=== PATIENT | male | born 1960 | race Caucasian/White ===

== ENCOUNTER 2022-03-29 11:38 | Inpatient (IN) | payer MEDICARE ==
[2022-03-29 12:31] LABS: #Basophils 0.1 10x3/uL (0.0-0.2); #Eosinphils 0.6 10x3/uL (0.0-0.5); #Monocytes 1.2 10x3/uL (0.0-1.1); #Neutrophils 7.6 10x3/uL (1.5-8.4); %Basophils 0.5 % (0.0-2.0); %Lymphocytes 14.4 % (18.0-47.0); %Monocytes 10.9 % (0.0-10.0); %Neutrophils 68.7 % (40.0-75.0); Hemoglobin 9.9 g/dL (13.5-17.5); Mean Corpuscular HGB CONC 31.6 g/dL (32.0-36.0); Mean Corpuscular Hemoglobin 29.9 pg (27.0-33.0); Mean Corpuscular Volume 94.6 fl (81.2-95.1); Mean Platelet Volume 10.2 fl (7.4-10.4); Platelet Count 137 10x3/uL (150-450); RBC Distribution Width 19.6 % (11.5-14.5); Red Blood Cell (RBC) Count 3.31 10x6/uL (4.32-5.72)
[2022-03-29 12:47] LABS: SARS-CoV-2 NAA Rapid Test Not Detected (NotDetected)
[2022-03-29 12:53] LABS: ALT (SGPT) 14 U/L (8-55); AST (SGOT) 18 U/L (5-34); Albumin 3.8 g/dL (3.5-5.0); Alkaline Phosphatase 71 U/L (40-110); Anion Gap 21 mmol/L (10-20); BUN (Urea Nitrogen) 48 mg/dL (8.4-25.7); Bilirubin, Total 0.9 mg/dL (0.2-1.2); Calc. Creatinine Clearance 0 mL/min (70-130); Calcium 9.7 mg/dL (7.8-10.44); Carbon Dioxide 26 mmol/L (22-29); Chloride 97 mmol/L (98-107); Estimated GFR 7; Globulin 3.5 g/dL (2.4-3.5); Glucose 106 mg/dL (70-105); Magnesium 2.5 mg/dL (1.6-2.6); Potassium 4.2 mmol/L (3.5-5.1); Protein, Total 7.3 g/dL (6.0-8.3); Sodium 140 mmol/L (136-145)
[2022-03-29] MEDS ORDERED: Furosemide 100 MG/10 ML VIAL ONE (14:31)
[2022-03-29] MEDS ORDERED: Ipratropium/Albuterol 3 ML NEB ONE (14:45)
[2022-03-29 15:01] LABS: INR-International Normal Ratio 1.1; Prothrombin Time 11.9 sec (9.5-12.1)
[2022-03-29] MEDS ORDERED: Heparin 25,000 units/D5W 500 ML IVPB SCH (15:45)
[2022-03-29] MEDS ORDERED: Acetaminophen 650 MG Suppository PR PRN (15:45)
[2022-03-29] MEDS ORDERED: Ondansetron PF 4 MG/2 ML Vial IVP PRN (15:45)
[2022-03-29] MEDS ORDERED: Ondansetron ODT 4 MG TAB PO PRN (15:45)
[2022-03-29 16:17] LABS: Hemoglobin 9.8 g/dL (13.5-17.5); Platelet Count 142 10x3/uL (150-450)
[2022-03-29 16:24] LABS: Troponin I 0.086 ng/mL (< 0.028)
[2022-03-29] MEDS ORDERED: Metoprolol Tartrate 25 MG TAB PO SCH (17:15)
[2022-03-29] MEDS ORDERED: Warfarin Sodium 5 MG TAB PO SCH (18:00)
[2022-03-29 18:51] LABS: Troponin I 0.098 ng/mL (< 0.028)
[2022-03-29] MEDS: Ipratropium/Albuterol 3 ML NEB NEB PRN (19:42)
[2022-03-29] MEDS: Heparin 10,000 UNITS/ 10 ML VIAL SLOW IVP SCH (21:28)
[2022-03-29] MEDS: Heparin 25,000 units/D5W 500 ML IVPB SCH (21:30)
[2022-03-30] MEDS: Ipratropium/Albuterol 3 ML NEB NEB PRN ×3 (01:21→15:40)
[2022-03-30] MEDS: Metoprolol Tartrate 25 MG TAB PO SCH ×4 (01:49→20:21)
[2022-03-30 04:35] LABS: #Eosinphils 0.7 10x3/uL (0.0-0.5); #Monocytes 1.2 10x3/uL (0.0-1.1); #Neutrophils 7.5 10x3/uL (1.5-8.4); %Basophils 0.4 % (0.0-2.0); %Eosinophils 6.3 % (0.0-6.0); %Lymphocytes 11.7 % (18.0-47.0); %Monocytes 11.2 % (0.0-10.0); %Neutrophils 69.9 % (40.0-75.0); Hemoglobin 9.9 g/dL (13.5-17.5); Mean Corpuscular Hemoglobin 29.2 pg (27.0-33.0); Mean Corpuscular Volume 97.3 fl (81.2-95.1); Mean Platelet Volume 10.8 fl (7.4-10.4); Platelet Count 129 10x3/uL (150-450); RBC Distribution Width 19.3 % (11.5-14.5); Red Blood Cell (RBC) Count 3.39 10x6/uL (4.32-5.72); White Blood Cell (WBC) Count 10.7 10x3/uL (3.5-10.5)
[2022-03-30 04:53] LABS: INR-International Normal Ratio 1.1; PTT 27.9 sec (22.0-33.0); Prothrombin Time 12.1 sec (9.5-12.1)
[2022-03-30 04:55] LABS: Anion Gap 23 mmol/L (10-20); BUN (Urea Nitrogen) 57 mg/dL (8.4-25.7); Calc. Creatinine Clearance 19 mL/min (70-130); Calcium 9.5 mg/dL (7.8-10.44); Carbon Dioxide 25 mmol/L (22-29); Chloride 96 mmol/L (98-107); Estimated GFR 6; Glucose 102 mg/dL (70-105); Sodium 139 mmol/L (136-145)
[2022-03-30] MEDS: Heparin 10,000 UNITS/ 10 ML VIAL SLOW IVP SCH ×2 (05:29→20:47)
[2022-03-30] MEDS ORDERED: Digoxin 0.5 MG/2 ML AMP SLOW IVP SCH ×2 (07:00→17:00)
[2022-03-30] MEDS: Sevelamer Carbonate 800 MG TAB PO SCH ×3 (08:43→16:40)
[2022-03-30] MEDS: EPOETIN ALFA-EPBX (ESRD) 4,000 UNIT/ML VIAL SC SCH (08:44)
[2022-03-30] MEDS ORDERED: Nitroglycerin 0.4 MG TAB (25 Tab Bottle) SL PRN (14:02)
[2022-03-30 15:16] LABS: CKMB 6.6 ng/mL (0-6.6)
[2022-03-30] MEDS ORDERED: Piperacillin/Tazobactam 3.375 GM in Sodium Chloride 0.9% 100 ML IVPB SCH (16:00)
[2022-03-30] MEDS: Warfarin Sodium 10 MG TAB PO SCH (16:40)
[2022-03-30] MEDS ORDERED: Heparin 10,000 UNITS/ 10 ML VIAL CATH PRN (17:45)
[2022-03-30] MEDS: Heparin 25,000 units/D5W 500 ML IVPB SCH (18:00)
[2022-03-30] MEDS: Piperacillin/Tazobactam 3.375 GM in Sodium Chloride 0.9% 100 ML IVPB SCH (20:20)
[2022-03-31 03:51] LABS: #Basophils 0.1 10x3/uL (0.0-0.2); #Eosinphils 0.5 10x3/uL (0.0-0.5); #Monocytes 1.8 10x3/uL (0.0-1.1); %Basophils 0.4 % (0.0-2.0); %Eosinophils 3.3 % (0.0-6.0); %Lymphocytes 9.3 % (18.0-47.0); %Monocytes 11.8 % (0.0-10.0); %Neutrophils 74.6 % (40.0-75.0); Hemoglobin 9.7 g/dL (13.5-17.5); Mean Corpuscular HGB CONC 30.9 g/dL (32.0-36.0); Mean Corpuscular Hemoglobin 29.9 pg (27.0-33.0); Mean Corpuscular Volume 96.9 fl (81.2-95.1); Mean Platelet Volume 10.4 fl (7.4-10.4); Platelet Count 122 10x3/uL (150-450); RBC Distribution Width 18.9 % (11.5-14.5); Red Blood Cell (RBC) Count 3.24 10x6/uL (4.32-5.72); White Blood Cell (WBC) Count 14.8 10x3/uL (3.5-10.5)
[2022-03-31 04:06] LABS: INR-International Normal Ratio 1.2; Prothrombin Time 13.2 sec (9.5-12.1)
[2022-03-31 04:09] LABS: Anion Gap 20 mmol/L (10-20); BUN (Urea Nitrogen) 51 mg/dL (8.4-25.7); Calc. Creatinine Clearance 21 mL/min (70-130); Calcium 8.8 mg/dL (7.8-10.44); Carbon Dioxide 27 mmol/L (22-29); Chloride 95 mmol/L (98-107); Estimated GFR 7; Glucose 104 mg/dL (70-105); Sodium 137 mmol/L (136-145)
[2022-03-31] MEDS: Ipratropium Bromide 2.5 ml Neb NEB PRN ×2 (04:57→19:24)
[2022-03-31] MEDS: Sevelamer Carbonate 800 MG TAB PO SCH ×3 (08:43→18:21)
[2022-03-31] MEDS: Metoprolol Tartrate 25 MG TAB PO SCH ×3 (08:43→20:57)
[2022-03-31] MEDS: Piperacillin/Tazobactam 3.375 GM in Sodium Chloride 0.9% 100 ML IVPB SCH ×2 (08:43→20:56)
[2022-03-31] MEDS: Heparin 25,000 units/D5W 500 ML IVPB SCH (08:45)
[2022-03-31 11:19] LABS: PTT Greater than 139.0 sec (22.0-33.0)
[2022-03-31 16:54] LABS: Hemoglobin 10.5 g/dL (13.5-17.5); Platelet Count 123 10x3/uL (150-450)
[2022-03-31] MEDS ORDERED: Digoxin 0.5 MG/2 ML AMP SLOW IVP SCH (17:45)
[2022-03-31] MEDS: Heparin 10,000 UNITS/ 10 ML VIAL SLOW IVP SCH (18:21)
[2022-03-31] MEDS: Warfarin Sodium 10 MG TAB PO SCH (18:23)
[2022-04-01 02:33] LABS: Legionella Urinary Ag Negative (Negative); Strep pneumo Urine Ag NEGATIVE (NEGATIVE)
[2022-04-01 04:52] LABS: #Basophils 0.1 10x3/uL (0.0-0.2); #Eosinphils 0.6 10x3/uL (0.0-0.5); #Monocytes 1.8 10x3/uL (0.0-1.1); #Neutrophils 9.6 10x3/uL (1.5-8.4); %Basophils 0.5 % (0.0-2.0); %Eosinophils 4.3 % (0.0-6.0); %Lymphocytes 7.6 % (18.0-47.0); %Monocytes 13.9 % (0.0-10.0); Hemoglobin 9.6 g/dL (13.5-17.5); Mean Corpuscular HGB CONC 30.4 g/dL (32.0-36.0); Mean Corpuscular Hemoglobin 29.9 pg (27.0-33.0); Mean Corpuscular Volume 98.4 fl (81.2-95.1); Platelet Count 114 10x3/uL (150-450); RBC Distribution Width 18.7 % (11.5-14.5); Red Blood Cell (RBC) Count 3.21 10x6/uL (4.32-5.72); White Blood Cell (WBC) Count 13.2 10x3/uL (3.5-10.5)
[2022-04-01 04:58] LABS: INR-International Normal Ratio 1.3; PTT 34.4 sec (22.0-33.0); Prothrombin Time 14.4 sec (9.5-12.1)
[2022-04-01 05:05] LABS: Anion Gap 16 mmol/L (10-20); BUN (Urea Nitrogen) 35 mg/dL (8.4-25.7); Calc. Creatinine Clearance 30 mL/min (70-130); Calcium 9.4 mg/dL (7.8-10.44); Carbon Dioxide 30 mmol/L (22-29); Chloride 96 mmol/L (98-107); Estimated GFR 10; Glucose 118 mg/dL (70-105); Potassium 4.7 mmol/L (3.5-5.1); Sodium 137 mmol/L (136-145)
[2022-04-01] MEDS: Heparin 10,000 UNITS/ 10 ML VIAL SLOW IVP SCH (05:48)
[2022-04-01] MEDS: Ipratropium Bromide 2.5 ml Neb NEB PRN ×3 (06:35→22:01)
[2022-04-01] MEDS: Heparin 25,000 units/D5W 500 ML IVPB SCH ×2 (07:24→19:00)
[2022-04-01] MEDS ORDERED: Digoxin 0.125 MG TAB PO SCH (09:00)
[2022-04-01 11:56] LABS: HBSAg Index 0.25 S/CO (0-0.99); Hep B Surf Ag Non-Reactive S/CO (NonReactive)
[2022-04-01] MEDS ORDERED: Digoxin 0.5 MG/2 ML AMP SLOW IVP SCH (16:15)
[2022-04-01] MEDS: Metoprolol Tartrate 25 MG TAB PO SCH (17:03)
[2022-04-01] MEDS: Piperacillin/Tazobactam 3.375 GM in Sodium Chloride 0.9% 100 ML IVPB SCH ×3 (17:13→21:17)
[2022-04-01] MEDS: Warfarin Sodium 10 MG TAB PO SCH (17:14)
[2022-04-01] MEDS: Sevelamer Carbonate 800 MG TAB PO SCH ×2 (17:14)
[2022-04-01 17:38] LABS: HBSAB Concentration 33.03 mIU/mL; Hep B Surf AB Reactive (NonReactive)
[2022-04-01] MEDS: Metoprolol Tartrate 50 MG TAB PO SCH (21:13)
[2022-04-02] MEDS: Ipratropium Bromide 2.5 ml Neb NEB PRN ×2 (04:09→11:15)
[2022-04-02] MEDS ORDERED: methylPREDNISolone Sod Succ/PF 125 MG/2 ML VIAL IVP SCH (05:00)
[2022-04-02] MEDS ORDERED: Magnesium 2 GM/50 ML(in water) 2 GM in Premix Bag 1 BAG IVPB SCH (05:00)
[2022-04-02] MEDS: Piperacillin/Tazobactam 3.375 GM in Sodium Chloride 0.9% 100 ML IVPB SCH ×2 (05:05→16:39)
[2022-04-02 05:25] LABS: #Basophils 0.1 10x3/uL (0.0-0.2); #Eosinphils 0.7 10x3/uL (0.0-0.5); #Monocytes 1.8 10x3/uL (0.0-1.1); #Neutrophils 10.6 10x3/uL (1.5-8.4); %Basophils 0.4 % (0.0-2.0); %Eosinophils 4.7 % (0.0-6.0); %Lymphocytes 6.7 % (18.0-47.0); %Neutrophils 74.5 % (40.0-75.0); Hemoglobin 9.7 g/dL (13.5-17.5); Mean Corpuscular Hemoglobin 29.5 pg (27.0-33.0); Mean Corpuscular Volume 98.2 fl (81.2-95.1); Mean Platelet Volume 9.3 fl (7.4-10.4); Platelet Count 114 10x3/uL (150-450); RBC Distribution Width 18.1 % (11.5-14.5); Red Blood Cell (RBC) Count 3.29 10x6/uL (4.32-5.72); White Blood Cell (WBC) Count 14.2 10x3/uL (3.5-10.5)
[2022-04-02 05:35] LABS: Anion Gap 18 mmol/L (10-20); BUN (Urea Nitrogen) 36 mg/dL (8.4-25.7); Calc. Creatinine Clearance 29 mL/min (70-130); Calcium 9.5 mg/dL (7.8-10.44); Carbon Dioxide 25 mmol/L (22-29); Chloride 96 mmol/L (98-107); Estimated GFR 10; Glucose 116 mg/dL (70-105); Potassium 4.8 mmol/L (3.5-5.1); Sodium 134 mmol/L (136-145)
[2022-04-02 05:41] LABS: INR-International Normal Ratio 1.4; Prothrombin Time 15.3 sec (9.5-12.1)
[2022-04-02] MEDS ORDERED: Lorazepam 2 MG/ML VIAL SLOW IVP SCH (06:00)
[2022-04-02] MEDS: Metoprolol Tartrate 50 MG TAB PO SCH ×2 (06:26→21:07)
[2022-04-02] MEDS: Digoxin 0.25 MG TAB PO SCH (06:36)
[2022-04-02] MEDS: Ipratropium/Albuterol 3 ML NEB NEB PRN ×2 (07:25→19:42)
[2022-04-02] MEDS: Sevelamer Carbonate 800 MG TAB PO SCH ×3 (09:13→16:32)
[2022-04-02] MEDS: methylPREDNISolone Sod Succ 40 MG VIAL IVP SCH (09:13)
[2022-04-02] MEDS ORDERED: Haloperidol Lactate 5 MG/ML VIAL SLOW IVP SCH (09:15)
[2022-04-02] MEDS: Dexmedetomidine In 0.9 % NaCl 400 MCG in Premix Bag 1 BAG IVPB SCH (12:23)
[2022-04-02] MEDS ORDERED: Albumin 25% 25 GM/100 ML BOT IVPB SCH (13:30)
[2022-04-02 16:11] LABS: Actual Bicarbonate (HCO3a) 31.5 mEq/L (22-28); Calcium, Ionized (arterial) 1.06 mmol/L (1.12-1.30); Carboxyhemoglobin (COHb) 1.2 gm% (0.0-3.0); Hemoglobin (Hb) 10.9 g/dL (14.0-18.0); O2 Tension (PaO2), arterial 80.5 mmHg (> 80.0); Potassium - ABG Lab 4.5 mmol/L (3.70-5.30); Puncture Site RRA; pH, Arterial 7.21 (7.35-7.45)
[2022-04-02] MEDS: Warfarin Sodium 10 MG TAB PO SCH (16:40)
[2022-04-02] MEDS ORDERED: Warfarin Sodium 5 MG TAB PO SCH (17:00)
[2022-04-02 17:18] LABS: Actual Bicarbonate (HCO3a) 27.1 mEq/L (22-28); Base Excess (BEa) -2.7 mEq/L (-2.0 to +3.0); CO2 Tension 76.5 mmHg (35.0-45.0); O2 Tension (PaO2), arterial 127.6 mmHg (> 80.0); pH, Arterial 7.17 (7.35-7.45)
[2022-04-02 17:19] LABS: Carboxyhemoglobin (COHb) 1.3 gm% (0.0-3.0); Hemoglobin (Hb) 11.2 g/dL (14.0-18.0)
[2022-04-02 17:20] LABS: Potassium - ABG Lab 5.2 mmol/L (3.70-5.30)
[2022-04-02 17:24] LABS: ALV-art Gradient 133.275 mmHg (0-20)
[2022-04-02] MEDS ORDERED: Phenylephrine 40 MG in Sodium Chloride 0.9% 250 ML 250 ML IVPB SCH (20:15)
[2022-04-02 20:40] LABS: ALV-art Gradient 130.575 mmHg (0-20); Actual Bicarbonate (HCO3a) 31.6 mEq/L (22-28); Base Excess (BEa) 2.6 mEq/L (-2.0 to +3.0); CO2 Tension 76.9 mmHg (35.0-45.0); Calcium, Ionized (arterial) 1.06 mmol/L (1.12-1.30); Hemoglobin (Hb) 10.3 g/dL (14.0-18.0); O2 Tension (PaO2), arterial 129.8 mmHg (> 80.0); Potassium - ABG Lab 4.8 mmol/L (3.70-5.30); Puncture Site LRA; pH, Arterial 7.23 (7.35-7.45)
[2022-04-02] MEDS: Phenylephrine 40 MG/NS 250 ML 40 MG in Premix Bag 1 BAG IVPB SCH (21:07)
[2022-04-02] MEDS ORDERED: Ventilator Sedation Protocol 1 EACH FS PRN (21:26)
[2022-04-02] MEDS ORDERED: Propofol 1,000 MG/100 ML VIAL IV SCH (21:30)
[2022-04-02] MEDS ORDERED: Propofol 1,000 MG/100 ML VIAL IV ONE (21:31)
[2022-04-02] MEDS ORDERED: FENTANYL 2,000MCG/100-0.9%NACL 100 ML IVPB SCH (21:45)
[2022-04-02] MEDS ORDERED: Lorazepam 2 MG/ML VIAL SLOW IVP PRN (21:45)
[2022-04-02] MEDS ORDERED: DISCONTINUE PREVIOUS NARCOTIC PAIN MEDICATIONS AND BENZODIAZEPINES FS SCH (21:45)
[2022-04-02] MEDS ORDERED: Propofol BOLUS 1,000 MG/100 ML VIAL IV PRN (21:45)
[2022-04-02] MEDS ORDERED: Morphine 2 MG/ML VIAL SLOW IVP PRN (21:45)
[2022-04-02] MEDS ORDERED: Fentanyl BOLUS 250 ML IVPB PRN (21:45)
[2022-04-02] MEDS ORDERED: VANCOMYCIN 2 GRAM/400 ML BAG 2 GM in Premix Bag 1 BAG IVPB SCH (22:00)
[2022-04-02] MEDS ORDERED: Vancomycin Hemodialysis Sliding Scale FS SCH (22:00)
[2022-04-02 23:17] LABS: Anion Gap 21 mmol/L (10-20); BUN (Urea Nitrogen) 35 mg/dL (8.4-25.7); Calc. Creatinine Clearance 32 mL/min (70-130); Calcium 8.9 mg/dL (7.8-10.44); Carbon Dioxide 25 mmol/L (22-29); Chloride 96 mmol/L (98-107); Estimated GFR 11; Glucose 132 mg/dL (70-105); Magnesium 2.6 mg/dL (1.6-2.6); Potassium 5.1 mmol/L (3.5-5.1); Sodium 137 mmol/L (136-145)
[2022-04-02 23:40] LABS: Actual Bicarbonate (HCO3a) 29.7 mEq/L (22-28); Base Excess (BEa) 3.6 mEq/L (-2.0 to +3.0); CO2 Tension 53.2 mmHg (35.0-45.0); Calcium, Ionized (arterial) 1.04 mmol/L (1.12-1.30); Hemoglobin (Hb) 10.1 g/dL (14.0-18.0); O2 Tension (PaO2), arterial 55.9 mmHg (> 80.0); Potassium - ABG Lab 4.8 mmol/L (3.70-5.30); Puncture Site LRA; pH, Arterial 7.37 (7.35-7.45)
[2022-04-02] MEDS: Propofol 1,000 MG/100 ML VIAL IV PRN (23:45)
[2022-04-03] MEDS: Ipratropium/Albuterol 3 ML NEB NEB PRN ×2 (00:13→20:21)
[2022-04-03] MEDS: methylPREDNISolone Sod Succ 40 MG VIAL IVP SCH (00:46)
[2022-04-03] MEDS: Propofol 1,000 MG/100 ML VIAL IV PRN ×8 (02:27→22:19)
[2022-04-03] MEDS: Heparin 25,000 units/D5W 500 ML IVPB SCH ×2 (02:29→19:59)
[2022-04-03] MEDS: Ipratropium Bromide 2.5 ml Neb NEB PRN ×4 (04:05→16:03)
[2022-04-03 04:31] LABS: #Monocytes 1.6 10x3/uL (0.0-1.1); #Neutrophils 9.5 10x3/uL (1.5-8.4); %Basophils 0.1 % (0.0-2.0); %Lymphocytes 5.5 % (18.0-47.0); %Monocytes 13.3 % (0.0-10.0); %Neutrophils 80.6 % (40.0-75.0); Hemoglobin 8.8 g/dL (13.5-17.5); Mean Corpuscular HGB CONC 31.4 g/dL (32.0-36.0); Mean Corpuscular Hemoglobin 29.7 pg (27.0-33.0); Mean Corpuscular Volume 94.6 fl (81.2-95.1); Platelet Count 118 10x3/uL (150-450); RBC Distribution Width 17.8 % (11.5-14.5); Red Blood Cell (RBC) Count 2.96 10x6/uL (4.32-5.72); White Blood Cell (WBC) Count 11.7 10x3/uL (3.5-10.5)
[2022-04-03 04:33] LABS: Anion Gap 20 mmol/L (10-20); BUN (Urea Nitrogen) 40 mg/dL (8.4-25.7); Calc. Creatinine Clearance 32 mL/min (70-130); Calcium 8.9 mg/dL (7.8-10.44); Carbon Dioxide 25 mmol/L (22-29); Chloride 95 mmol/L (98-107); Estimated GFR 11; Glucose 96 mg/dL (70-105); Potassium 4.6 mmol/L (3.5-5.1); Sodium 135 mmol/L (136-145)
[2022-04-03 04:42] LABS: INR-International Normal Ratio 1.8; PTT 46.6 sec (22.0-33.0); Prothrombin Time 19.3 sec (9.5-12.1)
[2022-04-03] MEDS: Piperacillin/Tazobactam 3.375 GM in Sodium Chloride 0.9% 100 ML IVPB SCH ×2 (04:46→17:36)
[2022-04-03 05:29] LABS: Actual Bicarbonate (HCO3a) 27.9 mEq/L (22-28); Base Excess (BEa) 3.6 mEq/L (-2.0 to +3.0); CO2 Tension 41.2 mmHg (35.0-45.0); Calcium, Ionized (arterial) 1.01 mmol/L (1.12-1.30); Carboxyhemoglobin (COHb) 0.8 gm% (0.0-3.0); Hemoglobin (Hb) 10.2 g/dL (14.0-18.0); O2 Tension (PaO2), arterial 60.3 mmHg (> 80.0); Potassium - ABG Lab 4.4 mmol/L (3.70-5.30); Puncture Site LRA; pH, Arterial 7.45 (7.35-7.45)
[2022-04-03] MEDS: Metoprolol Tartrate 50 MG TAB PO SCH ×2 (08:26→19:58)
[2022-04-03] MEDS: Sevelamer Carbonate 800 MG TAB PO SCH ×3 (08:26→16:34)
[2022-04-03] MEDS: Digoxin 0.25 MG TAB PO SCH (08:27)
[2022-04-03] MEDS ORDERED: Albumin 25% 25 GM/100 ML BOT IVPB PRN (08:34)
[2022-04-03] MEDS: Phenylephrine 40 MG/NS 250 ML 40 MG in Premix Bag 1 BAG IVPB SCH ×2 (08:44→19:58)
[2022-04-03] MEDS ORDERED: Warfarin Sodium 10 MG TAB PER TUBE SCH (17:00)
[2022-04-03] MEDS: Acetaminophen 325 MG TAB PO PRN (19:58)
[2022-04-04] MEDS: Ipratropium/Albuterol 3 ML NEB NEB PRN (01:52)
[2022-04-04] MEDS: Propofol 1,000 MG/100 ML VIAL IV PRN ×7 (02:19→22:30)
[2022-04-04] MEDS: Piperacillin/Tazobactam 3.375 GM in Sodium Chloride 0.9% 100 ML IVPB SCH ×2 (04:19→16:37)
[2022-04-04 04:39] LABS: INR-International Normal Ratio 1.6; Prothrombin Time 16.7 sec (9.5-12.1)
[2022-04-04 04:40] LABS: #Eosinphils 0.1 10x3/uL (0.0-0.5); #Monocytes 1.6 10x3/uL (0.0-1.1); #Neutrophils 7.7 10x3/uL (1.5-8.4); %Basophils 0.2 % (0.0-2.0); %Eosinophils 0.6 % (0.0-6.0); %Lymphocytes 14.7 % (18.0-47.0); %Monocytes 14.6 % (0.0-10.0); %Neutrophils 69.4 % (40.0-75.0); Hemoglobin 8.9 g/dL (13.5-17.5); Mean Corpuscular HGB CONC 30.9 g/dL (32.0-36.0); Mean Corpuscular Hemoglobin 28.6 pg (27.0-33.0); Mean Corpuscular Volume 92.6 fl (81.2-95.1); Platelet Count 129 10x3/uL (150-450); RBC Distribution Width 18.6 % (11.5-14.5); Red Blood Cell (RBC) Count 3.11 10x6/uL (4.32-5.72); White Blood Cell (WBC) Count 11.1 10x3/uL (3.5-10.5)
[2022-04-04 04:50] LABS: Anion Gap 18 mmol/L (10-20); BUN (Urea Nitrogen) 40 mg/dL (8.4-25.7); Calc. Creatinine Clearance 32 mL/min (70-130); Carbon Dioxide 27 mmol/L (22-29); Chloride 96 mmol/L (98-107); Estimated GFR 11; Glucose 94 mg/dL (70-105); Magnesium 2.4 mg/dL (1.6-2.6); Potassium 3.9 mmol/L (3.5-5.1); Sodium 137 mmol/L (136-145)
[2022-04-04] MEDS ORDERED: Albumin 25% 25 GM/100 ML BOT IVPB PRN (08:36)
[2022-04-04 08:46] LABS: Calcium, Ionized (arterial) 1.17 mmol/L (1.12-1.30); Puncture Site LBA
[2022-04-04 08:53] LABS: Actual Bicarbonate (HCO3a) 40.3 mEq/L (22-28); Base Excess (BEa) 9.3 mEq/L (-2.0 to +3.0); Carboxyhemoglobin (COHb) 2.3 gm% (0.0-3.0); Hemoglobin (Hb) 13.9 g/dL (14.0-18.0); O2 Tension (PaO2), arterial 85.1 mmHg (> 80.0); Potassium - ABG Lab 4.1 mmol/L (3.70-5.30); Puncture Site RRA; pH, Arterial 7.26 (7.35-7.45)
[2022-04-04] MEDS: Pantoprazole 40 MG VIAL IVP SCH (09:43)
[2022-04-04] MEDS: Sevelamer Carbonate 800 MG TAB PO SCH ×3 (09:43→16:43)
[2022-04-04] MEDS: Metoprolol Tartrate 50 MG TAB PO SCH ×2 (09:44→20:13)
[2022-04-04] MEDS: Digoxin 0.25 MG TAB PO SCH (09:55)
[2022-04-04 16:07] LABS: Hemoglobin 9.2 g/dL (13.5-17.5); Platelet Count 126 10x3/uL (150-450)
[2022-04-04] MEDS ORDERED: Piperacillin/Tazobactam 3.375 GM VIAL ONE (16:18)
[2022-04-04] MEDS: Warfarin Sodium 10 MG TAB PER TUBE SCH (16:43)
[2022-04-04] MEDS ORDERED: Warfarin Sodium 5 MG TAB PER TUBE SCH (17:00)
[2022-04-04] MEDS ORDERED: Vancomycin HCl 750 MG in Sodium Chloride 0.9% 250 ML 250 ML IVPB SCH (17:00)
[2022-04-05] MEDS: Propofol 1,000 MG/100 ML VIAL IV PRN ×7 (00:28→22:06)
[2022-04-05 04:10] LABS: #Eosinphils 0.5 10x3/uL (0.0-0.5); #Monocytes 1.4 10x3/uL (0.0-1.1); #Neutrophils 6.9 10x3/uL (1.5-8.4); %Basophils 0.3 % (0.0-2.0); %Eosinophils 5.2 % (0.0-6.0); %Lymphocytes 12.6 % (18.0-47.0); %Monocytes 13.4 % (0.0-10.0); %Neutrophils 68.2 % (40.0-75.0); Hemoglobin 9.2 g/dL (13.5-17.5); Mean Corpuscular HGB CONC 31.4 g/dL (32.0-36.0); Mean Corpuscular Hemoglobin 29.3 pg (27.0-33.0); Mean Corpuscular Volume 93.3 fl (81.2-95.1); Mean Platelet Volume 10.5 fl (7.4-10.4); Platelet Count 114 10x3/uL (150-450); RBC Distribution Width 18.4 % (11.5-14.5); Red Blood Cell (RBC) Count 3.14 10x6/uL (4.32-5.72); White Blood Cell (WBC) Count 10.1 10x3/uL (3.5-10.5)
[2022-04-05 04:13] LABS: INR-International Normal Ratio 1.3; Prothrombin Time 14.4 sec (9.5-12.1)
[2022-04-05 04:16] LABS: Anion Gap 18 mmol/L (10-20); BUN (Urea Nitrogen) 36 mg/dL (8.4-25.7); Calc. Creatinine Clearance 35 mL/min (70-130); Calcium 8.9 mg/dL (7.8-10.44); Carbon Dioxide 26 mmol/L (22-29); Chloride 97 mmol/L (98-107); Estimated GFR 13; Glucose 102 mg/dL (70-105); Potassium 4.6 mmol/L (3.5-5.1); Sodium 136 mmol/L (136-145)
[2022-04-05] MEDS: Piperacillin/Tazobactam 3.375 GM in Sodium Chloride 0.9% 100 ML IVPB SCH ×2 (05:10→17:41)
[2022-04-05 07:41] LABS: Vancomycin, Random 20.6 ug/mL (See Comment)
[2022-04-05] MEDS: Pantoprazole 40 MG VIAL IVP SCH (08:32)
[2022-04-05] MEDS: Digoxin 0.25 MG TAB PO SCH (08:33)
[2022-04-05] MEDS: Metoprolol Tartrate 50 MG TAB PO SCH ×2 (08:33→20:37)
[2022-04-05] MEDS: Sevelamer Carbonate 800 MG TAB PO SCH ×3 (08:33→17:39)
[2022-04-05] MEDS ORDERED: Albumin 25% 25 GM/100 ML BOT IVPB PRN (08:40)
[2022-04-05] MEDS: Warfarin Sodium 10 MG TAB PER TUBE SCH (17:41)
[2022-04-06 03:41] LABS: #Eosinphils 0.8 10x3/uL (0.0-0.5); #Monocytes 1.1 10x3/uL (0.0-1.1); #Neutrophils 5.5 10x3/uL (1.5-8.4); %Basophils 0.2 % (0.0-2.0); %Eosinophils 9.6 % (0.0-6.0); %Monocytes 12.4 % (0.0-10.0); %Neutrophils 63.5 % (40.0-75.0); Hemoglobin 9.5 g/dL (13.5-17.5); Mean Corpuscular Hemoglobin 29.1 pg (27.0-33.0); Mean Corpuscular Volume 93.6 fl (81.2-95.1); Mean Platelet Volume 10.2 fl (7.4-10.4); Platelet Count 108 10x3/uL (150-450); RBC Distribution Width 18.1 % (11.5-14.5); Red Blood Cell (RBC) Count 3.27 10x6/uL (4.32-5.72); White Blood Cell (WBC) Count 8.6 10x3/uL (3.5-10.5)
[2022-04-06 03:50] LABS: INR-International Normal Ratio 1.5; Prothrombin Time 15.7 sec (9.5-12.1)
[2022-04-06 03:55] LABS: Anion Gap 17 mmol/L (10-20); BUN (Urea Nitrogen) 29 mg/dL (8.4-25.7); Calc. Creatinine Clearance 41 mL/min (70-130); Calcium 9.2 mg/dL (7.8-10.44); Carbon Dioxide 27 mmol/L (22-29); Chloride 97 mmol/L (98-107); Estimated GFR 15; Glucose 98 mg/dL (70-105); Potassium 4.3 mmol/L (3.5-5.1); Sodium 137 mmol/L (136-145)
[2022-04-06] MEDS: Propofol 1,000 MG/100 ML VIAL IV PRN ×5 (04:29→22:43)
[2022-04-06] MEDS: Piperacillin/Tazobactam 3.375 GM in Sodium Chloride 0.9% 100 ML IVPB SCH ×2 (04:29→18:17)
[2022-04-06 07:21] LABS: Vancomycin, Random 14.4 ug/mL (See Comment)
[2022-04-06] MEDS: Sevelamer Carbonate 800 MG TAB PO SCH ×3 (08:17→16:10)
[2022-04-06] MEDS: Pantoprazole 40 MG VIAL IVP SCH (08:17)
[2022-04-06] MEDS: Metoprolol Tartrate 50 MG TAB PO SCH ×2 (08:17→20:48)
[2022-04-06] MEDS: Digoxin 0.25 MG TAB PO SCH (08:21)
[2022-04-06] MEDS: EPOETIN ALFA-EPBX (ESRD) 4,000 UNIT/ML VIAL SC SCH (10:07)
[2022-04-06] MEDS: Scopolamine 1.5 mg/72 hour Patch TOP SCH (13:13)
[2022-04-06 15:50] LABS: Hemoglobin 10.2 g/dL (13.5-17.5); Platelet Count 104 10x3/uL (150-450)
[2022-04-06] MEDS: Warfarin Sodium 10 MG TAB PER TUBE SCH (16:21)
[2022-04-06] MEDS ORDERED: VANCOMYCIN 1.25 GM/250 ML BAG 1.25 GM in Premix Bag 1 BAG IVPB SCH (17:00)
[2022-04-07] MEDS: Propofol 1,000 MG/100 ML VIAL IV PRN ×3 (01:25→07:29)
[2022-04-07] MEDS: Piperacillin/Tazobactam 3.375 GM in Sodium Chloride 0.9% 100 ML IVPB SCH ×2 (04:07→16:14)
[2022-04-07 04:09] LABS: #Monocytes 1.3 10x3/uL (0.0-1.1); #Neutrophils 7.6 10x3/uL (1.5-8.4); %Basophils 0.4 % (0.0-2.0); %Eosinophils 9.1 % (0.0-6.0); %Lymphocytes 9.9 % (18.0-47.0); %Monocytes 11.9 % (0.0-10.0); %Neutrophils 68.3 % (40.0-75.0); Hemoglobin 9.6 g/dL (13.5-17.5); Mean Corpuscular HGB CONC 30.7 g/dL (32.0-36.0); Mean Corpuscular Hemoglobin 28.7 pg (27.0-33.0); Mean Corpuscular Volume 93.4 fl (81.2-95.1); Mean Platelet Volume 9.9 fl (7.4-10.4); Platelet Count 106 10x3/uL (150-450); RBC Distribution Width 17.6 % (11.5-14.5); Red Blood Cell (RBC) Count 3.35 10x6/uL (4.32-5.72)
[2022-04-07 04:16] LABS: Anion Gap 17 mmol/L (10-20); BUN (Urea Nitrogen) 34 mg/dL (8.4-25.7); Calc. Creatinine Clearance 39 mL/min (70-130); Calcium 9.1 mg/dL (7.8-10.44); Carbon Dioxide 27 mmol/L (22-29); Chloride 97 mmol/L (98-107); Estimated GFR 14; Glucose 90 mg/dL (70-105); Potassium 4.3 mmol/L (3.5-5.1); Sodium 137 mmol/L (136-145)
[2022-04-07 04:19] LABS: INR-International Normal Ratio 1.7; Prothrombin Time 18.1 sec (9.5-12.1)
[2022-04-07 07:16] LABS: Vancomycin, Trough 29.1 ug/mL
[2022-04-07 08:11] LABS: Actual Bicarbonate (HCO3v) 27 mEq/L (22-28); Base Excess 1.1 mEq/L (-2.0 to +3.0); Calcium, Ionized (venous) 1.09 mmol/L (1.16-1.32); Chloride (VBG) 95 mmol/L (98-106); Hemoglobin (Hb) 11.2 g/dL (13.1-17.2); Puncture Site Other Site; RapidComm Collect By CBN; Sodium 132.1 mmol/L (133-146); pH (venous) 7.37 (7.32-7.43)
[2022-04-07] MEDS: Dexmedetomidine In 0.9 % NaCl 400 MCG in Premix Bag 1 BAG IVPB SCH ×2 (08:32→18:23)
[2022-04-07] MEDS: Sevelamer Carbonate 800 MG TAB PO SCH ×3 (08:40→16:56)
[2022-04-07] MEDS: Metoprolol Tartrate 50 MG TAB PO SCH ×2 (08:40→20:47)
[2022-04-07] MEDS: Digoxin 0.25 MG TAB PO SCH (08:40)
[2022-04-07] MEDS: Polyethylene Glycol 3350 17 GM Packet PER TUBE SCH (09:17)
[2022-04-07] MEDS: Senokot S 8.6-50 MG TAB PO SCH ×2 (09:17→20:47)
[2022-04-07] MEDS: Pantoprazole 40 MG VIAL IVP SCH (09:37)
[2022-04-07] MEDS: Warfarin Sodium 10 MG TAB PER TUBE SCH (16:41)
[2022-04-08] MEDS: Piperacillin/Tazobactam 3.375 GM in Sodium Chloride 0.9% 100 ML IVPB SCH ×2 (04:33→17:46)
[2022-04-08 05:07] LABS: Anion Gap 20 mmol/L (10-20); BUN (Urea Nitrogen) 41 mg/dL (8.4-25.7); Calc. Creatinine Clearance 34 mL/min (70-130); Calcium 9.5 mg/dL (7.8-10.44); Carbon Dioxide 24 mmol/L (22-29); Chloride 97 mmol/L (98-107); Estimated GFR 12; Glucose 106 mg/dL (70-105); Potassium 4.2 mmol/L (3.5-5.1); Sodium 137 mmol/L (136-145)
[2022-04-08 05:14] LABS: INR-International Normal Ratio 1.9; Prothrombin Time 19.5 sec (9.5-12.1)
[2022-04-08 05:17] LABS: #Eosinphils 0.7 10x3/uL (0.0-0.5); #Monocytes 1.6 10x3/uL (0.0-1.1); %Basophils 0.3 % (0.0-2.0); %Eosinophils 5.3 % (0.0-6.0); %Lymphocytes 8.2 % (18.0-47.0); %Monocytes 11.5 % (0.0-10.0); %Neutrophils 74.2 % (40.0-75.0); Hemoglobin 9.7 g/dL (13.5-17.5); Mean Corpuscular HGB CONC 31.7 g/dL (32.0-36.0); Mean Corpuscular Hemoglobin 29.1 pg (27.0-33.0); Mean Corpuscular Volume 91.9 fl (81.2-95.1); Mean Platelet Volume 9.9 fl (7.4-10.4); Platelet Count 128 10x3/uL (150-450); RBC Distribution Width 17.3 % (11.5-14.5); Red Blood Cell (RBC) Count 3.33 10x6/uL (4.32-5.72); White Blood Cell (WBC) Count 13.5 10x3/uL (3.5-10.5)
[2022-04-08] MEDS: Sevelamer Carbonate 800 MG TAB PO SCH ×3 (09:19→17:46)
[2022-04-08] MEDS: Senokot S 8.6-50 MG TAB PO SCH ×2 (09:19→19:35)
[2022-04-08] MEDS: Polyethylene Glycol 3350 17 GM Packet PER TUBE SCH (09:19)
[2022-04-08] MEDS: Pantoprazole 40 MG VIAL IVP SCH (09:19)
[2022-04-08] MEDS: Digoxin 0.25 MG TAB PO SCH (10:38)
[2022-04-08] MEDS: Metoprolol Tartrate 50 MG TAB PO SCH ×2 (11:29→19:34)
[2022-04-08] MEDS: Warfarin Sodium 10 MG TAB PER TUBE SCH (17:45)
[2022-04-09 03:42] LABS: #Eosinphils 0.6 10x3/uL (0.0-0.5); #Monocytes 1.7 10x3/uL (0.0-1.1); %Basophils 0.2 % (0.0-2.0); %Eosinophils 4.1 % (0.0-6.0); %Lymphocytes 6.4 % (18.0-47.0); %Neutrophils 76.8 % (40.0-75.0); Hemoglobin 9.4 g/dL (13.5-17.5); Mean Corpuscular HGB CONC 31.8 g/dL (32.0-36.0); Mean Corpuscular Volume 91.4 fl (81.2-95.1); Mean Platelet Volume 9.8 fl (7.4-10.4); Platelet Count 138 10x3/uL (150-450); RBC Distribution Width 17.6 % (11.5-14.5); Red Blood Cell (RBC) Count 3.24 10x6/uL (4.32-5.72); White Blood Cell (WBC) Count 14.3 10x3/uL (3.5-10.5)
[2022-04-09 03:51] LABS: INR-International Normal Ratio 2.1; Prothrombin Time 21.8 sec (9.5-12.1)
[2022-04-09 03:53] LABS: Anion Gap 22 mmol/L (10-20); BUN (Urea Nitrogen) 60 mg/dL (8.4-25.7); Calc. Creatinine Clearance 27 mL/min (70-130); Calcium 9.5 mg/dL (7.8-10.44); Carbon Dioxide 24 mmol/L (22-29); Chloride 96 mmol/L (98-107); Estimated GFR 8; Glucose 112 mg/dL (70-105); Potassium 4.5 mmol/L (3.5-5.1); Sodium 137 mmol/L (136-145)
[2022-04-09] MEDS ORDERED: Sodium Chloride 0.9% 100 ML ONE (03:59)
[2022-04-09] MEDS ORDERED: Piperacillin/Tazobactam 3.375 GM VIAL ONE (03:59)
[2022-04-09] MEDS: Piperacillin/Tazobactam 3.375 GM in Sodium Chloride 0.9% 100 ML IVPB SCH ×2 (04:01→16:18)
[2022-04-09] MEDS: Sevelamer Carbonate 800 MG TAB PO SCH ×3 (08:11→16:51)
[2022-04-09] MEDS: Pantoprazole 40 MG VIAL IVP SCH (09:13)
[2022-04-09] MEDS: Polyethylene Glycol 3350 17 GM Packet PER TUBE SCH (09:16)
[2022-04-09] MEDS: Digoxin 0.25 MG TAB PO SCH (09:16)
[2022-04-09] MEDS: Senokot S 8.6-50 MG TAB PO SCH ×2 (09:16→20:48)
[2022-04-09] MEDS: Dexmedetomidine In 0.9 % NaCl 400 MCG in Premix Bag 1 BAG IVPB SCH (13:30)
[2022-04-09] MEDS: Scopolamine 1.5 mg/72 hour Patch TOP SCH (14:38)
[2022-04-09] MEDS: Metoprolol Tartrate 50 MG TAB PO SCH ×2 (14:38→20:48)
[2022-04-09 15:16] LABS: Actual Bicarbonate (HCO3a) 28.1 mEq/L (22-28); Base Excess (BEa) 2.2 mEq/L (-2.0 to +3.0); CO2 Tension 49.8 mmHg (35.0-45.0); Calcium, Ionized (arterial) 1.05 mmol/L (1.12-1.30); Carboxyhemoglobin (COHb) 0.8 gm% (0.0-3.0); Hemoglobin (Hb) 11.2 g/dL (14.0-18.0); O2 Tension (PaO2), arterial 81.5 mmHg (> 80.0); Potassium - ABG Lab 3.8 mmol/L (3.70-5.30); Puncture Site RRA; pH, Arterial 7.37 (7.35-7.45)
[2022-04-09] MEDS: Warfarin Sodium 10 MG TAB PER TUBE SCH (17:49)
[2022-04-10 04:20] LABS: INR-International Normal Ratio 2.5; Prothrombin Time 25.4 sec (9.5-12.1)
[2022-04-10 04:22] LABS: #Eosinphils 0.5 10x3/uL (0.0-0.5); #Monocytes 1.8 10x3/uL (0.0-1.1); #Neutrophils 12.3 10x3/uL (1.5-8.4); %Basophils 0.3 % (0.0-2.0); %Lymphocytes 5.8 % (18.0-47.0); %Monocytes 11.7 % (0.0-10.0); %Neutrophils 78.7 % (40.0-75.0); Hemoglobin 9.2 g/dL (13.5-17.5); Mean Corpuscular HGB CONC 30.9 g/dL (32.0-36.0); Mean Corpuscular Hemoglobin 28.2 pg (27.0-33.0); Mean Corpuscular Volume 91.4 fl (81.2-95.1); Mean Platelet Volume 10.2 fl (7.4-10.4); Platelet Count 192 10x3/uL (150-450); RBC Distribution Width 17.2 % (11.5-14.5); Red Blood Cell (RBC) Count 3.26 10x6/uL (4.32-5.72); White Blood Cell (WBC) Count 15.7 10x3/uL (3.5-10.5)
[2022-04-10 04:28] LABS: Anion Gap 19 mmol/L (10-20); BUN (Urea Nitrogen) 47 mg/dL (8.4-25.7); Calc. Creatinine Clearance 32 mL/min (70-130); Calcium 9.4 mg/dL (7.8-10.44); Carbon Dioxide 26 mmol/L (22-29); Chloride 95 mmol/L (98-107); Estimated GFR 10; Glucose 100 mg/dL (70-105); Potassium 4.4 mmol/L (3.5-5.1); Sodium 136 mmol/L (136-145)
[2022-04-10] MEDS: Piperacillin/Tazobactam 3.375 GM in Sodium Chloride 0.9% 100 ML IVPB SCH ×2 (04:56→17:28)
[2022-04-10] MEDS: Sevelamer Carbonate 800 MG TAB PO SCH ×3 (08:39→17:22)
[2022-04-10] MEDS: Polyethylene Glycol 3350 17 GM Packet PER TUBE SCH (08:43)
[2022-04-10] MEDS: Digoxin 0.25 MG TAB PO SCH (08:43)
[2022-04-10] MEDS: Pantoprazole 40 MG VIAL IVP SCH (08:43)
[2022-04-10] MEDS: Senokot S 8.6-50 MG TAB PO SCH ×2 (08:43→21:11)
[2022-04-10] MEDS: Metoprolol Tartrate 50 MG TAB PO SCH ×2 (12:29→21:11)
[2022-04-10 14:11] LABS: Hemoglobin 9.9 g/dL (13.5-17.5); Platelet Count 207 10x3/uL (150-450)
[2022-04-10] MEDS: Ipratropium/Albuterol 3 ML NEB NEB PRN (15:22)
[2022-04-10] MEDS: Warfarin Sodium 10 MG TAB PER TUBE SCH (17:22)
[2022-04-11] MEDS: Ipratropium/Albuterol 3 ML NEB NEB PRN (00:30)
[2022-04-11] MEDS: Piperacillin/Tazobactam 3.375 GM in Sodium Chloride 0.9% 100 ML IVPB SCH (04:25)
[2022-04-11 04:44] LABS: #Basophils 0.1 10x3/uL (0.0-0.2); #Eosinphils 0.4 10x3/uL (0.0-0.5); #Monocytes 1.9 10x3/uL (0.0-1.1); #Neutrophils 12.2 10x3/uL (1.5-8.4); %Basophils 0.4 % (0.0-2.0); %Eosinophils 2.5 % (0.0-6.0); %Lymphocytes 5.2 % (18.0-47.0); %Monocytes 12.1 % (0.0-10.0); %Neutrophils 79.3 % (40.0-75.0); Hemoglobin 9.9 g/dL (13.5-17.5); Mean Corpuscular HGB CONC 31.5 g/dL (32.0-36.0); Mean Corpuscular Hemoglobin 28.9 pg (27.0-33.0); Mean Corpuscular Volume 91.8 fl (81.2-95.1); Mean Platelet Volume 9.3 fl (7.4-10.4); Platelet Count 221 10x3/uL (150-450); RBC Distribution Width 17.4 % (11.5-14.5); Red Blood Cell (RBC) Count 3.42 10x6/uL (4.32-5.72); White Blood Cell (WBC) Count 15.4 10x3/uL (3.5-10.5)
[2022-04-11 04:53] LABS: INR-International Normal Ratio 2.9; Prothrombin Time 29.3 sec (9.5-12.1)
[2022-04-11 05:08] LABS: Anion Gap 22 mmol/L (10-20); BUN (Urea Nitrogen) 68 mg/dL (8.4-25.7); Calc. Creatinine Clearance 25 mL/min (70-130); Calcium 9.8 mg/dL (7.8-10.44); Carbon Dioxide 24 mmol/L (22-29); Chloride 92 mmol/L (98-107); Estimated GFR 8; Glucose 86 mg/dL (70-105); Potassium 4.3 mmol/L (3.5-5.1); Sodium 134 mmol/L (136-145)
[2022-04-11] MEDS: Sevelamer Carbonate 800 MG TAB PO SCH ×3 (07:44→16:01)
[2022-04-11] MEDS: Digoxin 0.25 MG TAB PO SCH (09:14)
[2022-04-11] MEDS: Metoprolol Tartrate 50 MG TAB PO SCH ×2 (09:15→20:54)
[2022-04-11] MEDS: Pantoprazole 40 MG VIAL IVP SCH (09:15)
[2022-04-11] MEDS: Senokot S 8.6-50 MG TAB PO SCH ×2 (09:16→20:54)
[2022-04-11] MEDS: Polyethylene Glycol 3350 17 GM Packet PER TUBE SCH (09:41)
[2022-04-11] MEDS ORDERED: Warfarin Sodium 5 MG TAB PER TUBE SCH (17:00)
[2022-04-12 04:15] LABS: #Basophils 0.1 10x3/uL (0.0-0.2); #Eosinphils 0.1 10x3/uL (0.0-0.5); #Monocytes 2.5 10x3/uL (0.0-1.1); #Neutrophils 14.6 10x3/uL (1.5-8.4); %Basophils 0.4 % (0.0-2.0); %Eosinophils 0.5 % (0.0-6.0); %Lymphocytes 4.1 % (18.0-47.0); %Monocytes 13.6 % (0.0-10.0); %Neutrophils 79.7 % (40.0-75.0); Hemoglobin 10.4 g/dL (13.5-17.5); Mean Corpuscular Hemoglobin 29.1 pg (27.0-33.0); Mean Corpuscular Volume 93.6 fl (81.2-95.1); Mean Platelet Volume 9.7 fl (7.4-10.4); Platelet Count 291 10x3/uL (150-450); RBC Distribution Width 17.4 % (11.5-14.5); Red Blood Cell (RBC) Count 3.58 10x6/uL (4.32-5.72); White Blood Cell (WBC) Count 18.3 10x3/uL (3.5-10.5)
[2022-04-12 04:25] LABS: Anion Gap 28 mmol/L (10-20); BUN (Urea Nitrogen) 83 mg/dL (8.4-25.7); Calc. Creatinine Clearance 20 mL/min (70-130); Calcium 9.5 mg/dL (7.8-10.44); Carbon Dioxide 22 mmol/L (22-29); Chloride 92 mmol/L (98-107); Estimated GFR 6; Glucose 100 mg/dL (70-105); Potassium 5.5 mmol/L (3.5-5.1); Sodium 136 mmol/L (136-145)
[2022-04-12 04:29] LABS: Prothrombin Time 40.4 sec (9.5-12.1)
[2022-04-12 08:30] LABS: Actual Bicarbonate (HCO3a) 24.1 mEq/L (22-28); Base Excess (BEa) -6.8 mEq/L (-2.0 to +3.0); CO2 Tension 80.9 mmHg (35.0-45.0); Calcium, Ionized (arterial) 1.07 mmol/L (1.12-1.30); Carboxyhemoglobin (COHb) 0.7 gm% (0.0-3.0); Hemoglobin (Hb) 11.5 g/dL (14.0-18.0); O2 Tension (PaO2), arterial 96.5 mmHg (> 80.0); Potassium - ABG Lab 5.7 mmol/L (3.70-5.30); Puncture Site RRA; pH, Arterial 7.09 (7.35-7.45)
[2022-04-12 08:33] LABS: ALV-art Gradient 158.875 mmHg (0-20)
[2022-04-12] MEDS: Metoprolol Tartrate 50 MG TAB PO SCH ×2 (09:01→22:36)
[2022-04-12] MEDS: Polyethylene Glycol 3350 17 GM Packet PER TUBE SCH (09:01)
[2022-04-12] MEDS: Sevelamer Carbonate 800 MG TAB PO SCH ×3 (09:01→15:31)
[2022-04-12] MEDS: Digoxin 0.25 MG TAB PO SCH (09:01)
[2022-04-12] MEDS: Senokot S 8.6-50 MG TAB PO SCH ×2 (09:02→22:36)
[2022-04-12] MEDS: Pantoprazole 40 MG VIAL IVP SCH (09:23)
[2022-04-12] MEDS ORDERED: Albumin 25% 25 GM/100 ML BOT IVPB SCH (13:15)
[2022-04-12] MEDS: Scopolamine 1.5 mg/72 hour Patch TOP SCH (13:42)
[2022-04-12 16:06] LABS: Actual Bicarbonate (HCO3a) 28.4 mEq/L (22-28); Base Excess (BEa) 0.1 mEq/L (-2.0 to +3.0); CO2 Tension 66.2 mmHg (35.0-45.0); Calcium, Ionized (arterial) 1.09 mmol/L (1.12-1.30); Carboxyhemoglobin (COHb) 0.6 gm% (0.0-3.0); Critical Notified Whom: Alyssa, RN; O2 Tension (PaO2), arterial 103.3 mmHg (> 80.0); Potassium - ABG Lab 4.1 mmol/L (3.70-5.30); Puncture Site RRA; pH, Arterial 7.25 (7.35-7.45)
[2022-04-12] MEDS ORDERED: Warfarin Sodium 5 MG TAB PER TUBE SCH (17:00)
[2022-04-13 02:34] LABS: ALV-art Gradient 101.275 mmHg (0-20); Actual Bicarbonate (HCO3a) 24.7 mEq/L (22-28); Base Excess (BEa) -3.7 mEq/L (-2.0 to +3.0); CO2 Tension 61.7 mmHg (35.0-45.0); Calcium, Ionized (arterial) 1.12 mmol/L (1.12-1.30); Carboxyhemoglobin (COHb) 0.9 gm% (0.0-3.0); Hemoglobin (Hb) 11.1 g/dL (14.0-18.0); O2 Tension (PaO2), arterial 106.8 mmHg (> 80.0); Potassium - ABG Lab 4.5 mmol/L (3.70-5.30); Puncture Site LRA; pH, Arterial 7.22 (7.35-7.45)
[2022-04-13 02:38] LABS: Magnesium 2.9 mg/dL (1.6-2.6)
[2022-04-13 04:17] LABS: #Basophils 0.1 10x3/uL (0.0-0.2); #Eosinphils 0.2 10x3/uL (0.0-0.5); #Monocytes 1.6 10x3/uL (0.0-1.1); #Neutrophils 11.2 10x3/uL (1.5-8.4); %Basophils 0.4 % (0.0-2.0); %Eosinophils 1.2 % (0.0-6.0); %Lymphocytes 6.1 % (18.0-47.0); %Monocytes 11.7 % (0.0-10.0); %Neutrophils 79.8 % (40.0-75.0); Hemoglobin 9.5 g/dL (13.5-17.5); Mean Corpuscular Hemoglobin 29.2 pg (27.0-33.0); Mean Corpuscular Volume 94.2 fl (81.2-95.1); Platelet Count 251 10x3/uL (150-450); RBC Distribution Width 17.3 % (11.5-14.5); Red Blood Cell (RBC) Count 3.25 10x6/uL (4.32-5.72)
[2022-04-13 04:32] LABS: Prothrombin Time 59.1 sec (9.5-12.1)
[2022-04-13 04:35] LABS: ALT (SGPT) 8 U/L (8-55); AST (SGOT) 17 U/L (5-34); Albumin 3.8 g/dL (3.5-5.0); Alkaline Phosphatase 57 U/L (40-110); Anion Gap 22 mmol/L (10-20); BUN (Urea Nitrogen) 48 mg/dL (8.4-25.7); Bilirubin, Total 1.2 mg/dL (0.2-1.2); Calc. Creatinine Clearance 30 mL/min (70-130); Calcium 9.3 mg/dL (7.8-10.44); Carbon Dioxide 25 mmol/L (22-29); Chloride 94 mmol/L (98-107); Estimated GFR 9; Globulin 4.6 g/dL (2.4-3.5); Glucose 91 mg/dL (70-105); Potassium 4.3 mmol/L (3.5-5.1); Protein, Total 8.4 g/dL (6.0-8.3); Sodium 137 mmol/L (136-145)
[2022-04-13] MEDS: Levothyroxine Sodium 75 MCG TAB PO SCH (06:45)
[2022-04-13] MEDS: EPOETIN ALFA-EPBX (ESRD) 4,000 UNIT/ML VIAL SC SCH (08:48)
[2022-04-13] MEDS: Pantoprazole 40 MG VIAL IVP SCH (08:48)
[2022-04-13] MEDS ORDERED: Metoprolol Tartrate 5 MG/5 ML VIAL IVP PRN (10:56)
[2022-04-13] MEDS ORDERED: Digoxin 0.5 MG/2 ML AMP SLOW IVP SCH ×2 (11:30→17:00)
[2022-04-13] MEDS: Sevelamer Carbonate 800 MG TAB PO SCH ×2 (12:09→18:24)
[2022-04-13] MEDS: Metoprolol Tartrate 50 MG TAB PO SCH ×2 (12:09→20:43)
[2022-04-13] MEDS: Senokot S 8.6-50 MG TAB PO SCH ×2 (12:10→20:43)
[2022-04-13] MEDS: Polyethylene Glycol 3350 17 GM Packet PER TUBE SCH (12:10)
[2022-04-14 04:52] LABS: #Basophils 0.1 10x3/uL (0.0-0.2); #Eosinphils 0.3 10x3/uL (0.0-0.5); #Monocytes 1.4 10x3/uL (0.0-1.1); %Basophils 0.6 % (0.0-2.0); %Monocytes 10.7 % (0.0-10.0); %Neutrophils 78.7 % (40.0-75.0); ALT (SGPT) 9 U/L (8-55); AST (SGOT) 17 U/L (5-34); Albumin 3.7 g/dL (3.5-5.0); Alkaline Phosphatase 60 U/L (40-110); Anion Gap 21 mmol/L (10-20); BUN (Urea Nitrogen) 39 mg/dL (8.4-25.7); Bilirubin, Total 1.3 mg/dL (0.2-1.2); Calc. Creatinine Clearance 34 mL/min (70-130); Calcium 9.7 mg/dL (7.8-10.44); Carbon Dioxide 25 mmol/L (22-29); Chloride 96 mmol/L (98-107); Estimated GFR 11; Globulin 4.8 g/dL (2.4-3.5); Glucose 79 mg/dL (70-105); Hemoglobin 9.7 g/dL (13.5-17.5); Mean Corpuscular HGB CONC 30.7 g/dL (32.0-36.0); Mean Corpuscular Hemoglobin 28.7 pg (27.0-33.0); Mean Corpuscular Volume 93.5 fl (81.2-95.1); Mean Platelet Volume 9.5 fl (7.4-10.4); Platelet Count 269 10x3/uL (150-450); Potassium 4.3 mmol/L (3.5-5.1); Protein, Total 8.5 g/dL (6.0-8.3); RBC Distribution Width 17.4 % (11.5-14.5); Red Blood Cell (RBC) Count 3.38 10x6/uL (4.32-5.72); Sodium 138 mmol/L (136-145); White Blood Cell (WBC) Count 12.8 10x3/uL (3.5-10.5)
[2022-04-14 04:56] LABS: Prothrombin Time 63.3 sec (9.5-12.1)
[2022-04-14 04:59] LABS: INR-International Normal Ratio 6.5
[2022-04-14] MEDS: Levothyroxine Sodium 75 MCG TAB PO SCH (05:14)
[2022-04-14] MEDS: Pantoprazole 40 MG VIAL IVP SCH (08:19)
[2022-04-14] MEDS: Sevelamer Carbonate 800 MG TAB PO SCH ×3 (09:42→18:38)
[2022-04-14] MEDS: Senokot S 8.6-50 MG TAB PO SCH ×2 (10:30→21:15)
[2022-04-14] MEDS: Metoprolol Tartrate 50 MG TAB PO SCH ×2 (10:30→21:14)
[2022-04-14] MEDS: Polyethylene Glycol 3350 17 GM Packet PER TUBE SCH (10:30)
[2022-04-14] MEDS ORDERED: Albumin 25% 25 GM/100 ML BOT IVPB SCH (11:30)
[2022-04-15] MEDS: Levothyroxine Sodium 75 MCG TAB PO SCH (00:05)
[2022-04-15 03:49] LABS: #Basophils 0.1 10x3/uL (0.0-0.2); #Eosinphils 0.3 10x3/uL (0.0-0.5); #Monocytes 1.4 10x3/uL (0.0-1.1); #Neutrophils 8.7 10x3/uL (1.5-8.4); %Basophils 0.7 % (0.0-2.0); %Eosinophils 2.6 % (0.0-6.0); %Lymphocytes 11.4 % (18.0-47.0); %Monocytes 11.8 % (0.0-10.0); %Neutrophils 71.9 % (40.0-75.0); Hemoglobin 9.9 g/dL (13.5-17.5); Mean Corpuscular HGB CONC 31.3 g/dL (32.0-36.0); Mean Corpuscular Hemoglobin 28.9 pg (27.0-33.0); Mean Corpuscular Volume 92.1 fl (81.2-95.1); Mean Platelet Volume 9.3 fl (7.4-10.4); Platelet Count 269 10x3/uL (150-450); RBC Distribution Width 17.7 % (11.5-14.5); Red Blood Cell (RBC) Count 3.43 10x6/uL (4.32-5.72); White Blood Cell (WBC) Count 12.1 10x3/uL (3.5-10.5)
[2022-04-15 03:55] LABS: ALT (SGPT) 9 U/L (8-55); AST (SGOT) 18 U/L (5-34); Albumin 4.2 g/dL (3.5-5.0); Alkaline Phosphatase 59 U/L (40-110); Anion Gap 22 mmol/L (10-20); BUN (Urea Nitrogen) 31 mg/dL (8.4-25.7); Bilirubin, Total 1.6 mg/dL (0.2-1.2); Calc. Creatinine Clearance 38 mL/min (70-130); Carbon Dioxide 25 mmol/L (22-29); Chloride 95 mmol/L (98-107); Estimated GFR 15; Globulin 4.7 g/dL (2.4-3.5); Glucose 83 mg/dL (70-105); Potassium 3.9 mmol/L (3.5-5.1); Protein, Total 8.9 g/dL (6.0-8.3); Sodium 138 mmol/L (136-145)
[2022-04-15 03:59] LABS: Prothrombin Time 66.5 sec (9.5-12.1)
[2022-04-15 04:12] LABS: INR-International Normal Ratio 6.8
[2022-04-15] MEDS: Polyethylene Glycol 3350 17 GM Packet PER TUBE SCH (08:13)
[2022-04-15] MEDS: Senokot S 8.6-50 MG TAB PO SCH ×2 (08:13→20:36)
[2022-04-15] MEDS: Sevelamer Carbonate 800 MG TAB PO SCH ×3 (08:18→16:54)
[2022-04-15] MEDS ORDERED: Phytonadione 10 MG/ML AMP PO SCH ×2 (10:45→18:00)
[2022-04-15] MEDS: Metoprolol Tartrate 50 MG TAB PO SCH ×2 (10:58→20:47)
[2022-04-15] MEDS: Pantoprazole 40 MG VIAL IVP SCH (10:59)
[2022-04-15] MEDS ORDERED: Digoxin 0.5 MG/2 ML AMP SLOW IVP SCH (11:00)
[2022-04-15 12:16] LABS: Platelet Count 269 10x3/uL (130-400)
[2022-04-15 12:25] LABS: Bilirubin, Total 1.6 mg/dL (0.2-1.2)
[2022-04-15 12:42] LABS: D-Dimer Test 8.31 mg/L FEU (0.19-0.50); Fibrinogen 658 mg/dL (220-504); PTT 57.8 sec (22.0-33.0); Prothrombin Time 65.7 sec (9.5-12.1)
[2022-04-15 12:44] LABS: INR-International Normal Ratio 6.7
[2022-04-15] MEDS: Scopolamine 1.5 mg/72 hour Patch TOP SCH (14:23)
[2022-04-15 14:26] LABS: PT - Undiluted 47.3 sec (12.0-14.7)
[2022-04-15 14:27] LABS: PTT - Undiluted 75.3 sec (22.9-36.1)
[2022-04-15 15:07] LABS: PTT 57.8 sec (22.0-33.0); Prothrombin Time 62.4 sec (9.5-12.1)
[2022-04-15 15:15] LABS: INR-International Normal Ratio 6.4
[2022-04-16 04:42] LABS: Prothrombin Time 21.4 sec (9.5-12.1)
[2022-04-16 04:51] LABS: #Basophils 0.1 10x3/uL (0.0-0.2); #Eosinphils 0.4 10x3/uL (0.0-0.5); #Monocytes 1.3 10x3/uL (0.0-1.1); #Neutrophils 8.3 10x3/uL (1.5-8.4); %Eosinophils 3.2 % (0.0-6.0); %Neutrophils 72.5 % (40.0-75.0); Hemoglobin 10.8 g/dL (13.5-17.5); Mean Corpuscular HGB CONC 31.3 g/dL (32.0-36.0); Mean Corpuscular Hemoglobin 29.3 pg (27.0-33.0); Mean Corpuscular Volume 93.8 fl (81.2-95.1); Mean Platelet Volume 9.3 fl (7.4-10.4); Platelet Count 282 10x3/uL (150-450); RBC Distribution Width 17.9 % (11.5-14.5); Red Blood Cell (RBC) Count 3.68 10x6/uL (4.32-5.72); White Blood Cell (WBC) Count 11.4 10x3/uL (3.5-10.5)
[2022-04-16 04:53] LABS: ALT (SGPT) 8 U/L (8-55); AST (SGOT) 17 U/L (5-34); Alkaline Phosphatase 68 U/L (40-110); Anion Gap 21 mmol/L (10-20); BUN (Urea Nitrogen) 52 mg/dL (8.4-25.7); Bilirubin, Total 1.9 mg/dL (0.2-1.2); Calc. Creatinine Clearance 25 mL/min (70-130); Calcium 10.1 mg/dL (7.8-10.44); Carbon Dioxide 26 mmol/L (22-29); Chloride 96 mmol/L (98-107); Estimated GFR 9; Globulin 5.1 g/dL (2.4-3.5); Glucose 95 mg/dL (70-105); Potassium 4.2 mmol/L (3.5-5.1); Protein, Total 9.1 g/dL (6.0-8.3); Sodium 139 mmol/L (136-145)
[2022-04-16] MEDS: Levothyroxine Sodium 75 MCG TAB PO SCH (06:23)
[2022-04-16 08:15] LABS: INR-International Normal Ratio 1.8; Prothrombin Time 18.5 sec (9.5-12.1)
[2022-04-16] MEDS: Polyethylene Glycol 3350 17 GM Packet PER TUBE SCH (08:31)
[2022-04-16] MEDS: Senokot S 8.6-50 MG TAB PO SCH (08:32)
[2022-04-16] MEDS: Pantoprazole 40 MG VIAL IVP SCH (08:37)
[2022-04-16] MEDS: Sevelamer Carbonate 800 MG TAB PO SCH ×3 (08:37→16:37)
[2022-04-16] MEDS: Metoprolol Tartrate 50 MG TAB PO SCH ×2 (08:38→21:15)
[2022-04-16] MEDS: Digoxin 0.25 MG TAB PO SCH (08:39)
[2022-04-16] MEDS ORDERED: Albumin 25% 25 GM/100 ML BOT IVPB SCH (09:00)
[2022-04-16] MEDS ORDERED: Phytonadione 10 MG/ML AMP PO SCH (09:00)
[2022-04-16] MEDS ORDERED: Apixaban 5 MG TAB PO SCH (09:30)
[2022-04-16 13:06] LABS: PTT 1:1 Mix 37.7 sec (22.9-36.1)
[2022-04-16 14:45] LABS: PT 1:1 37C-90 min. Incubation 16.6 sec (12.0-14.7); PTT 1:1 37C/90 MIN Incubation 41.7 sec (22.9-36.1)
[2022-04-16] MEDS: Apixaban 5 MG TAB PO SCH (21:15)
[2022-04-17] MEDS: Senokot S 8.6-50 MG TAB PO SCH ×3 (00:02→21:39)
[2022-04-17] MEDS: Ipratropium/Albuterol 3 ML NEB NEB PRN (01:59)
[2022-04-17 07:16] LABS: ALT (SGPT) 6 U/L (8-55); AST (SGOT) 20 U/L (5-34); Albumin 4.1 g/dL (3.5-5.0); Alkaline Phosphatase 70 U/L (40-110); Anion Gap 24 mmol/L (10-20); BUN (Urea Nitrogen) 42 mg/dL (8.4-25.7); Calc. Creatinine Clearance 27 mL/min (70-130); Calcium 9.9 mg/dL (7.8-10.44); Carbon Dioxide 23 mmol/L (22-29); Chloride 97 mmol/L (98-107); Estimated GFR 10; Globulin 4.9 g/dL (2.4-3.5); Glucose 87 mg/dL (70-105); Potassium 4.5 mmol/L (3.5-5.1); Sodium 139 mmol/L (136-145)
[2022-04-17 07:26] LABS: #Basophils 0.1 10x3/uL (0.0-0.2); #Eosinphils 0.5 10x3/uL (0.0-0.5); #Monocytes 1.6 10x3/uL (0.0-1.1); #Neutrophils 11.6 10x3/uL (1.5-8.4); %Basophils 0.6 % (0.0-2.0); %Eosinophils 3.2 % (0.0-6.0); %Lymphocytes 7.9 % (18.0-47.0); %Monocytes 10.3 % (0.0-10.0); %Neutrophils 76.9 % (40.0-75.0); Hemoglobin 10.7 g/dL (13.5-17.5); Mean Corpuscular HGB CONC 30.8 g/dL (32.0-36.0); Mean Corpuscular Hemoglobin 29.2 pg (27.0-33.0); Mean Corpuscular Volume 94.8 fl (81.2-95.1); Mean Platelet Volume 9.4 fl (7.4-10.4); Platelet Count 237 10x3/uL (150-450); RBC Distribution Width 18.1 % (11.5-14.5); Red Blood Cell (RBC) Count 3.66 10x6/uL (4.32-5.72); White Blood Cell (WBC) Count 15.1 10x3/uL (3.5-10.5)
[2022-04-17] MEDS: Levothyroxine Sodium 75 MCG TAB PO SCH (07:44)
[2022-04-17] MEDS: Pantoprazole 40 MG VIAL IVP SCH (08:43)
[2022-04-17] MEDS: Metoprolol Tartrate 50 MG TAB PO SCH ×2 (08:44→21:40)
[2022-04-17] MEDS: Apixaban 5 MG TAB PO SCH ×2 (08:44→21:39)
[2022-04-17] MEDS: Digoxin 0.25 MG TAB PO SCH (08:44)
[2022-04-17] MEDS: Sevelamer Carbonate 800 MG TAB PO SCH ×3 (08:44→18:18)
[2022-04-17] MEDS: Polyethylene Glycol 3350 17 GM Packet PER TUBE SCH (08:45)
[2022-04-17 22:16] LABS: ALV-art Gradient 71.425 mmHg (0-20); Actual Bicarbonate (HCO3a) 24.9 mEq/L (22-28); Base Excess (BEa) -2.9 mEq/L (-2.0 to +3.0); CO2 Tension 57.5 mmHg (35.0-45.0); Calcium, Ionized (arterial) 1.16 mmol/L (1.12-1.30); Carboxyhemoglobin (COHb) 1.9 gm% (0.0-3.0); Hemoglobin (Hb) 11.9 g/dL (14.0-18.0); O2 Tension (PaO2), arterial 70.6 mmHg (> 80.0); Potassium - ABG Lab 4.2 mmol/L (3.70-5.30); Puncture Site RRA; pH, Arterial 7.25 (7.35-7.45)
[2022-04-18 05:59] LABS: #Basophils 0.1 10x3/uL (0.0-0.2); #Eosinphils 0.6 10x3/uL (0.0-0.5); #Monocytes 1.4 10x3/uL (0.0-1.1); #Neutrophils 7.8 10x3/uL (1.5-8.4); %Basophils 0.7 % (0.0-2.0); %Eosinophils 5.3 % (0.0-6.0); %Lymphocytes 11.5 % (18.0-47.0); %Monocytes 12.1 % (0.0-10.0); %Neutrophils 68.9 % (40.0-75.0); Hemoglobin 10.8 g/dL (13.5-17.5); Mean Corpuscular HGB CONC 31.1 g/dL (32.0-36.0); Mean Corpuscular Hemoglobin 29.2 pg (27.0-33.0); Mean Corpuscular Volume 93.8 fl (81.2-95.1); Mean Platelet Volume 9.4 fl (7.4-10.4); Platelet Count 210 10x3/uL (150-450); RBC Distribution Width 18.9 % (11.5-14.5); White Blood Cell (WBC) Count 11.4 10x3/uL (3.5-10.5)
[2022-04-18 06:01] LABS: INR-International Normal Ratio 1.3; PTT 33.6 sec (22.0-33.0); Prothrombin Time 13.6 sec (9.5-12.1)
[2022-04-18 06:09] LABS: ALT (SGPT) Less than 6 U/L (8-55); AST (SGOT) 16 U/L (5-34); Albumin 3.9 g/dL (3.5-5.0); Alkaline Phosphatase 72 U/L (40-110); Anion Gap 22 mmol/L (10-20); BUN (Urea Nitrogen) 60 mg/dL (8.4-25.7); Bilirubin, Total 1.7 mg/dL (0.2-1.2); Calc. Creatinine Clearance 20 mL/min (70-130); Carbon Dioxide 24 mmol/L (22-29); Chloride 98 mmol/L (98-107); Estimated GFR 7; Globulin 4.8 g/dL (2.4-3.5); Glucose 101 mg/dL (70-105); Potassium 4.4 mmol/L (3.5-5.1); Protein, Total 8.7 g/dL (6.0-8.3); Sodium 140 mmol/L (136-145)
[2022-04-18] MEDS: Levothyroxine Sodium 75 MCG TAB PO SCH (06:09)
[2022-04-18] MEDS: Ipratropium/Albuterol 3 ML NEB NEB PRN ×2 (07:10→15:15)
[2022-04-18] MEDS: Metoprolol Tartrate 50 MG TAB PO SCH ×2 (08:35→22:09)
[2022-04-18] MEDS: Sevelamer Carbonate 800 MG TAB PO SCH ×3 (08:35→16:44)
[2022-04-18] MEDS: Pantoprazole 40 MG VIAL IVP SCH (08:35)
[2022-04-18] MEDS: Digoxin 0.25 MG TAB PO SCH (08:35)
[2022-04-18] MEDS: Apixaban 5 MG TAB PO SCH ×2 (08:35→22:09)
[2022-04-18] MEDS: Polyethylene Glycol 3350 17 GM Packet PER TUBE SCH (08:36)
[2022-04-18] MEDS: Senokot S 8.6-50 MG TAB PO SCH ×2 (08:36→22:09)
[2022-04-18] MEDS ORDERED: Iopamidol 300 61% 100 ML VIAL FS ONE (14:05)
[2022-04-18] MEDS: Scopolamine 1.5 mg/72 hour Patch TOP SCH (14:35)
[2022-04-19] MEDS: Levothyroxine Sodium 75 MCG TAB PO SCH (05:48)
[2022-04-19 06:08] LABS: #Basophils 0.1 10x3/uL (0.0-0.2); #Eosinphils 0.5 10x3/uL (0.0-0.5); #Monocytes 1.3 10x3/uL (0.0-1.1); #Neutrophils 8.5 10x3/uL (1.5-8.4); %Basophils 0.7 % (0.0-2.0); %Eosinophils 4.5 % (0.0-6.0); %Lymphocytes 8.9 % (18.0-47.0); %Monocytes 10.9 % (0.0-10.0); %Neutrophils 73.6 % (40.0-75.0); Mean Corpuscular HGB CONC 31.4 g/dL (32.0-36.0); Mean Corpuscular Hemoglobin 29.4 pg (27.0-33.0); Mean Corpuscular Volume 93.6 fl (81.2-95.1); Mean Platelet Volume 9.5 fl (7.4-10.4); Platelet Count 193 10x3/uL (150-450); RBC Distribution Width 19.2 % (11.5-14.5); Red Blood Cell (RBC) Count 3.74 10x6/uL (4.32-5.72); White Blood Cell (WBC) Count 11.5 10x3/uL (3.5-10.5)
[2022-04-19 06:32] LABS: ALT (SGPT) Less than 6 U/L (8-55); AST (SGOT) 18 U/L (5-34); Albumin 3.8 g/dL (3.5-5.0); Alkaline Phosphatase 74 U/L (40-110); Anion Gap 24 mmol/L (10-20); BUN (Urea Nitrogen) 76 mg/dL (8.4-25.7); Bilirubin, Total 1.5 mg/dL (0.2-1.2); Calc. Creatinine Clearance 18 mL/min (70-130); Calcium 9.7 mg/dL (7.8-10.44); Carbon Dioxide 23 mmol/L (22-29); Chloride 97 mmol/L (98-107); Estimated GFR 5; Globulin 4.9 g/dL (2.4-3.5); Glucose 119 mg/dL (70-105); Potassium 4.7 mmol/L (3.5-5.1); Protein, Total 8.7 g/dL (6.0-8.3); Sodium 139 mmol/L (136-145)
[2022-04-19] MEDS: Ipratropium/Albuterol 3 ML NEB NEB PRN (07:05)
[2022-04-19] MEDS: Pantoprazole 40 MG VIAL IVP SCH (08:22)
[2022-04-19] MEDS: Digoxin 0.25 MG TAB PO SCH (08:22)
[2022-04-19] MEDS: Senokot S 8.6-50 MG TAB PO SCH ×2 (08:23→22:22)
[2022-04-19] MEDS: Polyethylene Glycol 3350 17 GM Packet PER TUBE SCH (08:23)
[2022-04-19] MEDS: Metoprolol Tartrate 50 MG TAB PO SCH ×2 (08:23→22:21)
[2022-04-19] MEDS: Sevelamer Carbonate 800 MG TAB PO SCH ×3 (08:23→16:36)
[2022-04-19] MEDS: Apixaban 5 MG TAB PO SCH ×2 (08:23→22:21)
[2022-04-19] MEDS ORDERED: Albumin 25% 25 GM/100 ML BOT IVPB PRN (12:28)
[2022-04-20 04:46] LABS: ALT (SGPT) Less than 6 U/L (8-55); AST (SGOT) 15 U/L (5-34); Alkaline Phosphatase 68 U/L (40-110); Anion Gap 16 mmol/L (10-20); BUN (Urea Nitrogen) 39 mg/dL (8.4-25.7); Bilirubin, Total 1.6 mg/dL (0.2-1.2); Calc. Creatinine Clearance 27 mL/min (70-130); Calcium 9.6 mg/dL (7.8-10.44); Carbon Dioxide 28 mmol/L (22-29); Chloride 96 mmol/L (98-107); Estimated GFR 9; Globulin 4.9 g/dL (2.4-3.5); Glucose 110 mg/dL (70-105); Potassium 3.8 mmol/L (3.5-5.1); Protein, Total 8.9 g/dL (6.0-8.3); Sodium 136 mmol/L (136-145)
[2022-04-20 05:01] LABS: #Basophils 0.1 10x3/uL (0.0-0.2); #Eosinphils 0.6 10x3/uL (0.0-0.5); #Monocytes 1.5 10x3/uL (0.0-1.1); #Neutrophils 8.8 10x3/uL (1.5-8.4); %Basophils 0.4 % (0.0-2.0); %Eosinophils 4.5 % (0.0-6.0); %Lymphocytes 9.1 % (18.0-47.0); %Monocytes 12.5 % (0.0-10.0); %Neutrophils 72.7 % (40.0-75.0); Hemoglobin 10.8 g/dL (13.5-17.5); Mean Corpuscular Hemoglobin 29.5 pg (27.0-33.0); Mean Corpuscular Volume 92.3 fl (81.2-95.1); Mean Platelet Volume 8.9 fl (7.4-10.4); Platelet Count 136 10x3/uL (150-450); RBC Distribution Width 19.4 % (11.5-14.5); Red Blood Cell (RBC) Count 3.66 10x6/uL (4.32-5.72); White Blood Cell (WBC) Count 12.2 10x3/uL (3.5-10.5)
[2022-04-20] MEDS ORDERED: Albumin 25% 25 GM/100 ML BOT IVPB PRN (09:18)
[2022-04-20] MEDS ORDERED: Pantoprazole 40 MG VIAL ONE (16:22)
[2022-04-20] MEDS: Levothyroxine Sodium 75 MCG TAB PO SCH (16:23)
[2022-04-20] MEDS: Metoprolol Tartrate 50 MG TAB PO SCH ×2 (16:24→21:40)
[2022-04-20] MEDS: Sevelamer Carbonate 800 MG TAB PO SCH ×2 (16:24→16:38)
[2022-04-20] MEDS: Polyethylene Glycol 3350 17 GM Packet PER TUBE SCH (16:24)
[2022-04-20] MEDS: Senokot S 8.6-50 MG TAB PO SCH ×2 (16:25→22:15)
[2022-04-20] MEDS: EPOETIN ALFA-EPBX (ESRD) 4,000 UNIT/ML VIAL SC SCH (16:31)
[2022-04-20] MEDS: Pantoprazole 40 MG VIAL IVP SCH (16:35)
[2022-04-20] MEDS: Apixaban 5 MG TAB PO SCH ×2 (16:38→21:41)
[2022-04-20] MEDS: Digoxin 0.25 MG TAB PO SCH (16:39)
[2022-04-20] MEDS: Zinc Gluconate 50 MG TAB PO SCH (16:40)
[2022-04-21] MEDS ORDERED: QUEtiapine 25 MG TAB PO SCH ×2 (01:45→15:30)
[2022-04-21 06:02] LABS: #Basophils 0.1 10x3/uL (0.0-0.2); #Eosinphils 0.4 10x3/uL (0.0-0.5); #Monocytes 1.4 10x3/uL (0.0-1.1); #Neutrophils 7.4 10x3/uL (1.5-8.4); %Basophils 0.5 % (0.0-2.0); %Eosinophils 4.1 % (0.0-6.0); %Monocytes 13.7 % (0.0-10.0); %Neutrophils 71.2 % (40.0-75.0); Hemoglobin 10.5 g/dL (13.5-17.5); Mean Corpuscular HGB CONC 31.6 g/dL (32.0-36.0); Mean Corpuscular Hemoglobin 29.3 pg (27.0-33.0); Mean Corpuscular Volume 92.7 fl (81.2-95.1); Mean Platelet Volume 9.1 fl (7.4-10.4); Platelet Count 121 10x3/uL (150-450); RBC Distribution Width 19.9 % (11.5-14.5); Red Blood Cell (RBC) Count 3.58 10x6/uL (4.32-5.72); White Blood Cell (WBC) Count 10.4 10x3/uL (3.5-10.5)
[2022-04-21 06:06] LABS: ALT (SGPT) Less than 6 U/L (8-55); AST (SGOT) 19 U/L (5-34); Albumin 4.1 g/dL (3.5-5.0); Alkaline Phosphatase 73 U/L (40-110); Anion Gap 20 mmol/L (10-20); BUN (Urea Nitrogen) 30 mg/dL (8.4-25.7); Calc. Creatinine Clearance 33 mL/min (70-130); Calcium 10.1 mg/dL (7.8-10.44); Carbon Dioxide 23 mmol/L (22-29); Chloride 99 mmol/L (98-107); Estimated GFR 11; Globulin 5.1 g/dL (2.4-3.5); Glucose 94 mg/dL (70-105); Protein, Total 9.2 g/dL (6.0-8.3); Sodium 138 mmol/L (136-145)
[2022-04-21 08:16] LABS: #Basophils 0.1 10x3/uL (0.0-0.2); #Eosinphils 0.4 10x3/uL (0.0-0.5); #Monocytes 1.5 10x3/uL (0.0-1.1); #Neutrophils 7.1 10x3/uL (1.5-8.4); %Basophils 0.5 % (0.0-2.0); %Eosinophils 4.3 % (0.0-6.0); %Lymphocytes 10.7 % (18.0-47.0); %Monocytes 14.4 % (0.0-10.0); %Neutrophils 69.1 % (40.0-75.0); Hemoglobin 10.9 g/dL (13.5-17.5); Mean Corpuscular HGB CONC 31.8 g/dL (32.0-36.0); Mean Corpuscular Hemoglobin 30.3 pg (27.0-33.0); Mean Corpuscular Volume 95.3 fl (81.2-95.1); Mean Platelet Volume 10.1 fl (7.4-10.4); Platelet Count 126 10x3/uL (150-450); RBC Distribution Width 19.8 % (11.5-14.5); White Blood Cell (WBC) Count 10.2 10x3/uL (3.5-10.5)
[2022-04-21] MEDS: Pantoprazole 40 MG VIAL IVP SCH (09:34)
[2022-04-21] MEDS: Zinc Gluconate 50 MG TAB PO SCH (09:37)
[2022-04-21] MEDS: Digoxin 0.25 MG TAB PO SCH (09:37)
[2022-04-21] MEDS: Polyethylene Glycol 3350 17 GM Packet PER TUBE SCH (09:38)
[2022-04-21] MEDS: Sevelamer Carbonate 800 MG TAB PO SCH ×4 (09:38→15:42)
[2022-04-21] MEDS: Senokot S 8.6-50 MG TAB PO SCH (09:38)
[2022-04-21] MEDS: Metoprolol Tartrate 50 MG TAB PO SCH (09:39)
[2022-04-21] MEDS: Apixaban 5 MG TAB PO SCH (09:39)
[2022-04-21] MEDS: Levothyroxine Sodium 75 MCG TAB PO SCH (09:43)
[2022-04-21] MEDS: Scopolamine 1.5 mg/72 hour Patch TOP SCH (14:32)
[2022-04-22] MEDS: Senokot S 8.6-50 MG TAB PO SCH ×3 (02:28→22:08)
[2022-04-22] MEDS: Apixaban 5 MG TAB PO SCH ×3 (02:54→22:02)
[2022-04-22] MEDS: Metoprolol Tartrate 50 MG TAB PO SCH ×3 (02:54→22:03)
[2022-04-22] MEDS: QUEtiapine 25 MG TAB PO SCH ×3 (02:55→22:02)
[2022-04-22 05:39] LABS: Hemoglobin 10.8 g/dL (13.5-17.5); Mean Corpuscular HGB CONC 30.9 g/dL (32.0-36.0); Mean Corpuscular Hemoglobin 29.2 pg (27.0-33.0); Mean Corpuscular Volume 94.3 fl (81.2-95.1); Platelet Count 110 10x3/uL (150-450); RBC Distribution Width 19.9 % (11.5-14.5); White Blood Cell (WBC) Count 11.1 10x3/uL (3.5-10.5)
[2022-04-22 05:40] LABS: MDiff Complete? YES
[2022-04-22 05:47] LABS: ALT (SGPT) Less than 6 U/L (8-55); AST (SGOT) 20 U/L (5-34); Albumin 4.6 g/dL (3.5-5.0); Alkaline Phosphatase 71 U/L (40-110); Anion Gap 20 mmol/L (10-20); BUN (Urea Nitrogen) 21 mg/dL (8.4-25.7); Bilirubin, Total 2.1 mg/dL (0.2-1.2); Calc. Creatinine Clearance 42 mL/min (70-130); Calcium 10.3 mg/dL (7.8-10.44); Carbon Dioxide 25 mmol/L (22-29); Chloride 97 mmol/L (98-107); Estimated GFR 15; Globulin 5.4 g/dL (2.4-3.5); Glucose 101 mg/dL (70-105); Potassium 4.2 mmol/L (3.5-5.1); Sodium 138 mmol/L (136-145)
[2022-04-22 06:42] LABS: Band 6 % (5-11); Eosinophils 5 % (0-10); Lymphocytes 7 % (21-51); Monocytes 17 % (0-10); Neutrophil 65 % (42-75)
[2022-04-22 06:45] LABS: Hypochromia SLIGHT = 6-15 cells (100X) (0-5/hpf); Platelet Morphology Comment Appears Decreased
[2022-04-22] MEDS: Levothyroxine Sodium 75 MCG TAB PO SCH (07:52)
[2022-04-22] MEDS: Pantoprazole 40 MG VIAL IVP SCH (09:20)
[2022-04-22] MEDS: Polyethylene Glycol 3350 17 GM Packet PER TUBE SCH (09:20)
[2022-04-22] MEDS: Sevelamer Carbonate 800 MG TAB PO SCH ×3 (09:20→17:53)
[2022-04-22] MEDS: Digoxin 0.25 MG TAB PO SCH (09:21)
[2022-04-22] MEDS: Zinc Gluconate 50 MG TAB PO SCH (10:44)
[2022-04-22] MEDS: Mirtazapine 15 MG Soltab PO SCH (22:03)
[2022-04-23 05:09] LABS: #Basophils 0.1 10x3/uL (0.0-0.2); #Eosinphils 0.4 10x3/uL (0.0-0.5); #Monocytes 1.7 10x3/uL (0.0-1.1); #Neutrophils 8.4 10x3/uL (1.5-8.4); %Basophils 0.5 % (0.0-2.0); %Eosinophils 3.2 % (0.0-6.0); %Lymphocytes 9.1 % (18.0-47.0); %Neutrophils 71.8 % (40.0-75.0); Hemoglobin 11.3 g/dL (13.5-17.5); Mean Corpuscular Volume 93.6 fl (81.2-95.1); Mean Platelet Volume 9.1 fl (7.4-10.4); Platelet Count 103 10x3/uL (150-450); RBC Distribution Width 19.6 % (11.5-14.5); White Blood Cell (WBC) Count 11.6 10x3/uL (3.5-10.5)
[2022-04-23 05:39] LABS: Anion Gap 24 mmol/L (10-20); BUN (Urea Nitrogen) 46 mg/dL (8.4-25.7); Calc. Creatinine Clearance 27 mL/min (70-130); Calcium 10.8 mg/dL (7.8-10.44); Carbon Dioxide 22 mmol/L (22-29); Chloride 98 mmol/L (98-107); Estimated GFR 9; Glucose 97 mg/dL (70-105); Potassium 4.5 mmol/L (3.5-5.1); Sodium 139 mmol/L (136-145)
[2022-04-23] MEDS: Levothyroxine Sodium 75 MCG TAB PO SCH (06:30)
[2022-04-23] MEDS: Digoxin 0.25 MG TAB PO SCH (10:49)
[2022-04-23] MEDS: Zinc Gluconate 50 MG TAB PO SCH (15:26)
[2022-04-23] MEDS: Sevelamer Carbonate 800 MG TAB PO SCH ×2 (15:27→18:52)
[2022-04-23] MEDS: Polyethylene Glycol 3350 17 GM Packet PER TUBE SCH (15:27)
[2022-04-23] MEDS: Metoprolol Tartrate 50 MG TAB PO SCH ×2 (15:27→20:05)
[2022-04-23] MEDS: Apixaban 5 MG TAB PO SCH ×2 (15:27→20:05)
[2022-04-23] MEDS: Senokot S 8.6-50 MG TAB PO SCH ×2 (15:28→20:04)
[2022-04-23] MEDS: QUEtiapine 25 MG TAB PO SCH ×2 (15:28→20:04)
[2022-04-23] MEDS: Mirtazapine 15 MG Soltab PO SCH (20:05)
[2022-04-24 04:54] LABS: #Eosinphils 0.4 10x3/uL (0.0-0.5); #Monocytes 1.9 10x3/uL (0.0-1.1); #Neutrophils 8.2 10x3/uL (1.5-8.4); %Basophils 0.3 % (0.0-2.0); %Lymphocytes 8.3 % (18.0-47.0); %Monocytes 16.3 % (0.0-10.0); %Neutrophils 71.8 % (40.0-75.0); Hemoglobin 11.5 g/dL (13.5-17.5); Mean Corpuscular HGB CONC 31.7 g/dL (32.0-36.0); Mean Corpuscular Hemoglobin 29.5 pg (27.0-33.0); Mean Corpuscular Volume 93.1 fl (81.2-95.1); Mean Platelet Volume 10.5 fl (7.4-10.4); Platelet Count 133 10x3/uL (150-450); RBC Distribution Width 19.8 % (11.5-14.5); White Blood Cell (WBC) Count 11.5 10x3/uL (3.5-10.5)
[2022-04-24 04:56] LABS: Anion Gap 24 mmol/L (10-20); BUN (Urea Nitrogen) 31 mg/dL (8.4-25.7); Calc. Creatinine Clearance 35 mL/min (70-130); Calcium 10.6 mg/dL (7.8-10.44); Carbon Dioxide 21 mmol/L (22-29); Chloride 97 mmol/L (98-107); Estimated GFR 13; Glucose 95 mg/dL (70-105); Potassium 4.3 mmol/L (3.5-5.1); Sodium 138 mmol/L (136-145)
[2022-04-24] MEDS: Levothyroxine Sodium 75 MCG TAB PO SCH (05:37)
[2022-04-24 05:43] LABS: Eosinophils 2 % (0-10); Lymphocytes 3 % (21-51); Monocytes 14 % (0-10); Neutrophil 81 % (42-75)
[2022-04-24 05:47] LABS: Anisocytosis SLIGHT = 6-15 cells (100X) (0-5/hpf)
[2022-04-24 05:48] LABS: Hypochromia SLIGHT = 6-15 cells (100X) (0-5/hpf); Microcytosis SLIGHT = 6-15 cells (100X) (0-5/hpf); Ovalocytes SLIGHT = 2-5 cells (100X) (0-1/hpf)
[2022-04-24 05:49] LABS: Platelet Morphology Comment Appears Adequate
[2022-04-24] MEDS ORDERED: QUEtiapine 25 MG TAB PO SCH (10:45)
[2022-04-24] MEDS: Metoprolol Tartrate 50 MG TAB PO SCH (11:36)
[2022-04-24] MEDS: Apixaban 5 MG TAB PO SCH ×2 (11:36→21:34)
[2022-04-24] MEDS: Sevelamer Carbonate 800 MG TAB PO SCH ×3 (11:40→18:10)
[2022-04-24] MEDS: Digoxin 0.25 MG TAB PO SCH (11:40)
[2022-04-24] MEDS: Zinc Gluconate 50 MG TAB PO SCH (11:41)
[2022-04-24] MEDS: Scopolamine 1.5 mg/72 hour Patch TOP SCH (16:32)
[2022-04-24] MEDS: Senokot S 8.6-50 MG TAB PO SCH (16:33)
[2022-04-24] MEDS: Polyethylene Glycol 3350 17 GM Packet PER TUBE SCH (16:33)
[2022-04-24] MEDS: QUEtiapine 25 MG TAB PO SCH ×2 (18:11→21:36)
[2022-04-24] MEDS: Mirtazapine 15 MG Soltab PO SCH (21:35)
[2022-04-25 04:55] LABS: #Basophils 0.1 10x3/uL (0.0-0.2); #Eosinphils 0.2 10x3/uL (0.0-0.5); #Neutrophils 11.6 10x3/uL (1.5-8.4); %Basophils 0.5 % (0.0-2.0); %Eosinophils 1.6 % (0.0-6.0); %Lymphocytes 7.3 % (18.0-47.0); %Monocytes 12.9 % (0.0-10.0); %Neutrophils 77.2 % (40.0-75.0); Hemoglobin 11.7 g/dL (13.5-17.5); Mean Corpuscular HGB CONC 32.4 g/dL (32.0-36.0); Mean Corpuscular Hemoglobin 29.9 pg (27.0-33.0); Mean Corpuscular Volume 92.3 fl (81.2-95.1); Mean Platelet Volume 10.9 fl (7.4-10.4); Platelet Count 151 10x3/uL (150-450); RBC Distribution Width 19.1 % (11.5-14.5); Red Blood Cell (RBC) Count 3.91 10x6/uL (4.32-5.72); White Blood Cell (WBC) Count 15.1 10x3/uL (3.5-10.5)
[2022-04-25 05:02] LABS: Anion Gap 23 mmol/L (10-20); BUN (Urea Nitrogen) 56 mg/dL (8.4-25.7); Calc. Creatinine Clearance 23 mL/min (70-130); Calcium 10.9 mg/dL (7.8-10.44); Carbon Dioxide 23 mmol/L (22-29); Chloride 96 mmol/L (98-107); Estimated GFR 8; Glucose 106 mg/dL (70-105); Potassium 4.6 mmol/L (3.5-5.1); Sodium 137 mmol/L (136-145)
[2022-04-25] MEDS: Metoprolol Tartrate 50 MG TAB PO SCH ×3 (05:58→20:39)
[2022-04-25] MEDS: Levothyroxine Sodium 75 MCG TAB PO SCH (05:58)
[2022-04-25] MEDS: Senokot S 8.6-50 MG TAB PO SCH ×3 (07:38→20:39)
[2022-04-25] MEDS: Sevelamer Carbonate 800 MG TAB PO SCH ×3 (10:04→16:35)
[2022-04-25] MEDS: Zinc Gluconate 50 MG TAB PO SCH (10:04)
[2022-04-25] MEDS: Digoxin 0.25 MG TAB PO SCH (10:04)
[2022-04-25] MEDS: Polyethylene Glycol 3350 17 GM Packet PER TUBE SCH (10:05)
[2022-04-25] MEDS: Apixaban 5 MG TAB PO SCH ×2 (10:05→20:40)
[2022-04-25] MEDS: QUEtiapine 25 MG TAB PO SCH ×2 (10:05→20:40)
[2022-04-25] MEDS: Acetaminophen 325 MG TAB PO PRN (13:11)
[2022-04-25] MEDS: Mirtazapine 15 MG Soltab PO SCH (20:39)
[2022-04-26 04:44] LABS: Hemoglobin 11.4 g/dL (13.5-17.5); Mean Corpuscular HGB CONC 31.8 g/dL (32.0-36.0); Mean Corpuscular Hemoglobin 28.9 pg (27.0-33.0); Mean Corpuscular Volume 91.1 fl (81.2-95.1); Mean Platelet Volume 10.2 fl (7.4-10.4); Platelet Count 164 10x3/uL (150-450); RBC Distribution Width 19.3 % (11.5-14.5); Red Blood Cell (RBC) Count 3.94 10x6/uL (4.32-5.72); White Blood Cell (WBC) Count 13.7 10x3/uL (3.5-10.5)
[2022-04-26 04:54] LABS: Anion Gap 23 mmol/L (10-20); BUN (Urea Nitrogen) 84 mg/dL (8.4-25.7); Calc. Creatinine Clearance 17 mL/min (70-130); Calcium 10.7 mg/dL (7.8-10.44); Carbon Dioxide 24 mmol/L (22-29); Chloride 96 mmol/L (98-107); Estimated GFR 6; Glucose 107 mg/dL (70-105); Potassium 4.6 mmol/L (3.5-5.1); Sodium 138 mmol/L (136-145)
[2022-04-26] MEDS: Levothyroxine Sodium 75 MCG TAB PO SCH (05:00)
[2022-04-26 05:02] LABS: MDiff Complete? YES
[2022-04-26 05:05] LABS: Band 13 % (5-11); Eosinophils 4 % (0-10); Lymphocytes 6 % (21-51); Monocytes 16 % (0-10); Neutrophil 60 % (42-75); Platelet Morphology Comment Appears Adequate
[2022-04-26 05:06] LABS: RBC Morphology Normal
[2022-04-26] MEDS: Metoprolol Tartrate 50 MG TAB PO SCH ×2 (09:13→21:55)
[2022-04-26] MEDS: Senokot S 8.6-50 MG TAB PO SCH ×2 (09:13→21:56)
[2022-04-26] MEDS: Zinc Gluconate 50 MG TAB PO SCH (09:13)
[2022-04-26] MEDS: Polyethylene Glycol 3350 17 GM Packet PER TUBE SCH (09:13)
[2022-04-26] MEDS: Sevelamer Carbonate 800 MG TAB PO SCH ×3 (09:13→17:15)
[2022-04-26] MEDS: QUEtiapine 25 MG TAB PO SCH ×2 (09:13→21:56)
[2022-04-26] MEDS: Digoxin 0.25 MG TAB PO SCH (09:13)
[2022-04-26] MEDS: Apixaban 5 MG TAB PO SCH ×2 (09:13→21:55)
[2022-04-26] MEDS ORDERED: Albumin 25% 25 GM/100 ML BOT IVPB SCH (20:30)
[2022-04-26] MEDS: Mirtazapine 15 MG Soltab PO SCH (21:55)
[2022-04-27 05:04] LABS: #Basophils 0.1 10x3/uL (0.0-0.2); #Eosinphils 0.4 10x3/uL (0.0-0.5); #Monocytes 1.5 10x3/uL (0.0-1.1); %Basophils 0.4 % (0.0-2.0); %Eosinophils 3.4 % (0.0-6.0); %Lymphocytes 7.9 % (18.0-47.0); %Monocytes 12.8 % (0.0-10.0); Hemoglobin 10.6 g/dL (13.5-17.5); Mean Corpuscular HGB CONC 31.6 g/dL (32.0-36.0); Mean Corpuscular Hemoglobin 29.7 pg (27.0-33.0); Mean Corpuscular Volume 93.8 fl (81.2-95.1); Mean Platelet Volume 10.6 fl (7.4-10.4); Platelet Count 135 10x3/uL (150-450); RBC Distribution Width 19.1 % (11.5-14.5); Red Blood Cell (RBC) Count 3.57 10x6/uL (4.32-5.72)
[2022-04-27 05:32] LABS: Anion Gap 15 mmol/L (10-20); BUN (Urea Nitrogen) 34 mg/dL (8.4-25.7); Calc. Creatinine Clearance 31 mL/min (70-130); Calcium 10.1 mg/dL (7.8-10.44); Carbon Dioxide 28 mmol/L (22-29); Chloride 97 mmol/L (98-107); Estimated GFR 12; Glucose 90 mg/dL (70-105); Potassium 3.9 mmol/L (3.5-5.1); Sodium 136 mmol/L (136-145)
[2022-04-27] MEDS: Levothyroxine Sodium 75 MCG TAB PO SCH (06:23)
[2022-04-27] MEDS: Senokot S 8.6-50 MG TAB PO SCH ×2 (09:10→21:51)
[2022-04-27] MEDS: Sevelamer Carbonate 800 MG TAB PO SCH ×3 (09:10→17:06)
[2022-04-27] MEDS: Digoxin 0.25 MG TAB PO SCH (09:10)
[2022-04-27] MEDS: Metoprolol Tartrate 50 MG TAB PO SCH ×2 (09:10→21:51)
[2022-04-27] MEDS: Zinc Gluconate 50 MG TAB PO SCH (09:10)
[2022-04-27] MEDS: QUEtiapine 25 MG TAB PO SCH ×2 (09:10→21:51)
[2022-04-27] MEDS: Polyethylene Glycol 3350 17 GM Packet PER TUBE SCH (09:11)
[2022-04-27] MEDS: EPOETIN ALFA-EPBX (ESRD) 4,000 UNIT/ML VIAL SC SCH ×2 (09:11→09:12)
[2022-04-27] MEDS: Apixaban 5 MG TAB PO SCH ×2 (09:11→21:51)
[2022-04-27] MEDS: Epoetin (ESRD) 10,000 UNITS/ML VIAL SC SCH (09:38)
[2022-04-27] MEDS: Scopolamine 1.5 mg/72 hour Patch TOP SCH (14:03)
[2022-04-27] MEDS: Mirtazapine 15 MG Soltab PO SCH (21:51)
[2022-04-28 05:16] LABS: #Basophils 0.1 10x3/uL (0.0-0.2); #Eosinphils 0.5 10x3/uL (0.0-0.5); #Monocytes 1.7 10x3/uL (0.0-1.1); #Neutrophils 7.5 10x3/uL (1.5-8.4); %Basophils 0.6 % (0.0-2.0); %Eosinophils 4.1 % (0.0-6.0); %Lymphocytes 11.8 % (18.0-47.0); %Neutrophils 68.2 % (40.0-75.0); Hemoglobin 11.1 g/dL (13.5-17.5); Mean Corpuscular HGB CONC 30.9 g/dL (32.0-36.0); Mean Corpuscular Hemoglobin 29.1 pg (27.0-33.0); Mean Corpuscular Volume 94.2 fl (81.2-95.1); Mean Platelet Volume 10.9 fl (7.4-10.4); Platelet Count 128 10x3/uL (150-450); Red Blood Cell (RBC) Count 3.81 10x6/uL (4.32-5.72)
[2022-04-28] MEDS: Levothyroxine Sodium 75 MCG TAB PO SCH (05:38)
[2022-04-28 06:02] LABS: Anion Gap 19 mmol/L (10-20); BUN (Urea Nitrogen) 55 mg/dL (8.4-25.7); Calc. Creatinine Clearance 22 mL/min (70-130); Calcium 10.4 mg/dL (7.8-10.44); Carbon Dioxide 24 mmol/L (22-29); Chloride 97 mmol/L (98-107); Estimated GFR 8; Glucose 86 mg/dL (70-105); Potassium 4.3 mmol/L (3.5-5.1); Sodium 136 mmol/L (136-145)
[2022-04-28] MEDS: Metoprolol Tartrate 25 MG TAB PO SCH ×2 (08:21→20:31)
[2022-04-28] MEDS: Digoxin 0.25 MG TAB PO SCH (08:25)
[2022-04-28] MEDS: Polyethylene Glycol 3350 17 GM Packet PER TUBE SCH (08:25)
[2022-04-28] MEDS: QUEtiapine 25 MG TAB PO SCH ×2 (08:25→20:31)
[2022-04-28] MEDS: Sevelamer Carbonate 800 MG TAB PO SCH ×3 (08:25→16:49)
[2022-04-28] MEDS: Apixaban 5 MG TAB PO SCH ×2 (08:25→20:31)
[2022-04-28] MEDS: Zinc Gluconate 50 MG TAB PO SCH (08:25)
[2022-04-28] MEDS: Senokot S 8.6-50 MG TAB PO SCH ×2 (08:26→20:31)
[2022-04-28] MEDS: Albumin 25% 25 GM/100 ML BOT IVPB SCH (11:39)
[2022-04-28] MEDS ORDERED: Albumin 25% 25 GM/100 ML BOT IVPB SCH (12:45)
[2022-04-28] MEDS: Mirtazapine 15 MG Soltab PO SCH (20:31)
[2022-04-29 05:43] LABS: #Basophils 0.1 10x3/uL (0.0-0.2); #Eosinphils 0.5 10x3/uL (0.0-0.5); #Monocytes 1.5 10x3/uL (0.0-1.1); #Neutrophils 7.7 10x3/uL (1.5-8.4); %Basophils 0.5 % (0.0-2.0); %Eosinophils 4.3 % (0.0-6.0); %Lymphocytes 8.8 % (18.0-47.0); %Monocytes 13.7 % (0.0-10.0); %Neutrophils 72.4 % (40.0-75.0); Hemoglobin 10.3 g/dL (13.5-17.5); Mean Corpuscular HGB CONC 30.7 g/dL (32.0-36.0); Mean Corpuscular Hemoglobin 29.2 pg (27.0-33.0); Mean Corpuscular Volume 95.2 fl (81.2-95.1); Mean Platelet Volume 11.4 fl (7.4-10.4); Platelet Count 127 10x3/uL (150-450); RBC Distribution Width 18.8 % (11.5-14.5); Red Blood Cell (RBC) Count 3.53 10x6/uL (4.32-5.72); White Blood Cell (WBC) Count 10.6 10x3/uL (3.5-10.5)
[2022-04-29 05:55] LABS: Anion Gap 19 mmol/L (10-20); BUN (Urea Nitrogen) 29 mg/dL (8.4-25.7); Calc. Creatinine Clearance 35 mL/min (70-130); Calcium 9.7 mg/dL (7.8-10.44); Carbon Dioxide 25 mmol/L (22-29); Chloride 97 mmol/L (98-107); Estimated GFR 13; Glucose 82 mg/dL (70-105); Potassium 3.9 mmol/L (3.5-5.1); Sodium 137 mmol/L (136-145)
[2022-04-29] MEDS: Levothyroxine Sodium 75 MCG TAB PO SCH (05:58)
[2022-04-29] MEDS: Sevelamer Carbonate 800 MG TAB PO SCH ×3 (09:18→16:35)
[2022-04-29] MEDS: Apixaban 5 MG TAB PO SCH ×2 (09:19→21:55)
[2022-04-29] MEDS: Digoxin 0.25 MG TAB PO SCH (09:19)
[2022-04-29] MEDS: QUEtiapine 25 MG TAB PO SCH ×2 (09:19→21:54)
[2022-04-29] MEDS: Zinc Gluconate 50 MG TAB PO SCH (09:19)
[2022-04-29] MEDS: Polyethylene Glycol 3350 17 GM Packet PER TUBE SCH (09:20)
[2022-04-29] MEDS: Senokot S 8.6-50 MG TAB PO SCH ×2 (09:20→21:54)
[2022-04-29] MEDS ORDERED: Albumin 25% 25 GM/100 ML BOT IVPB SCH (11:45)
[2022-04-29] MEDS: Albumin 25% 25 GM/100 ML BOT IVPB SCH (11:52)
[2022-04-29] MEDS: Mirtazapine 15 MG Soltab PO SCH (21:55)
[2022-04-30 04:47] LABS: #Basophils 0.1 10x3/uL (0.0-0.2); #Eosinphils 0.4 10x3/uL (0.0-0.5); #Monocytes 1.2 10x3/uL (0.0-1.1); %Basophils 0.6 % (0.0-2.0); %Eosinophils 4.1 % (0.0-6.0); %Lymphocytes 9.2 % (18.0-47.0); %Monocytes 12.7 % (0.0-10.0); %Neutrophils 73.1 % (40.0-75.0); Mean Corpuscular HGB CONC 30.9 g/dL (32.0-36.0); Mean Corpuscular Hemoglobin 29.3 pg (27.0-33.0); Mean Platelet Volume 10.7 fl (7.4-10.4); Platelet Count 111 10x3/uL (150-450); RBC Distribution Width 18.8 % (11.5-14.5); Red Blood Cell (RBC) Count 3.41 10x6/uL (4.32-5.72); White Blood Cell (WBC) Count 9.5 10x3/uL (3.5-10.5)
[2022-04-30 05:01] LABS: Anion Gap 19 mmol/L (10-20); BUN (Urea Nitrogen) 45 mg/dL (8.4-25.7); Calc. Creatinine Clearance 24 mL/min (70-130); Calcium 10.6 mg/dL (7.8-10.44); Carbon Dioxide 26 mmol/L (22-29); Chloride 96 mmol/L (98-107); Estimated GFR 9; Glucose 87 mg/dL (70-105); Sodium 137 mmol/L (136-145)
[2022-04-30] MEDS: Levothyroxine Sodium 75 MCG TAB PO SCH (06:04)
[2022-04-30] MEDS: Apixaban 5 MG TAB PO SCH ×2 (08:37→19:48)
[2022-04-30] MEDS: QUEtiapine 25 MG TAB PO SCH ×2 (08:37→19:49)
[2022-04-30] MEDS: Digoxin 0.25 MG TAB PO SCH (08:38)
[2022-04-30] MEDS: Sevelamer Carbonate 800 MG TAB PO SCH ×3 (08:38→17:18)
[2022-04-30] MEDS: Zinc Gluconate 50 MG TAB PO SCH (08:38)
[2022-04-30] MEDS: Polyethylene Glycol 3350 17 GM Packet PER TUBE SCH (08:38)
[2022-04-30] MEDS: Senokot S 8.6-50 MG TAB PO SCH ×2 (09:33→19:50)
[2022-04-30] MEDS: Scopolamine 1.5 mg/72 hour Patch TOP SCH (15:01)
[2022-04-30] MEDS: Mirtazapine 15 MG Soltab PO SCH (19:49)
[2022-05-01] MEDS: Levothyroxine Sodium 75 MCG TAB PO SCH (05:25)
[2022-05-01 07:39] LABS: Albumin 4.2 g/dL (3.5-5.0); Anion Gap 21 mmol/L (10-20); BUN (Urea Nitrogen) 24 mg/dL (8.4-25.7); BUN/Creatinine Ratio 5.29; Calc. Creatinine Clearance 36 mL/min (70-130); Calcium 9.8 mg/dL (7.8-10.44); Carbon Dioxide 24 mmol/L (22-29); Chloride 94 mmol/L (98-107); Estimated GFR 14; Glucose 79 mg/dL (70-105); Phosphorus 4.2 mg/dL (2.3-4.7); Potassium 4.1 mmol/L (3.5-5.1); Sodium 135 mmol/L (136-145)
[2022-05-01] MEDS: Digoxin 0.25 MG TAB PO SCH (08:57)
[2022-05-01] MEDS: Sevelamer Carbonate 800 MG TAB PO SCH ×3 (08:57→17:24)
[2022-05-01] MEDS: Apixaban 5 MG TAB PO SCH ×2 (08:57→20:50)
[2022-05-01] MEDS: QUEtiapine 25 MG TAB PO SCH ×2 (08:57→20:50)
[2022-05-01] MEDS: Polyethylene Glycol 3350 17 GM Packet PER TUBE SCH (08:58)
[2022-05-01] MEDS: Zinc Gluconate 50 MG TAB PO SCH (08:58)
[2022-05-01] MEDS: Senokot S 8.6-50 MG TAB PO SCH (09:04)
[2022-05-01] MEDS: Mirtazapine 15 MG Soltab PO SCH (20:50)
[2022-05-02] MEDS: Senokot S 8.6-50 MG TAB PO SCH ×3 (01:20→21:37)
[2022-05-02 05:12] LABS: Mean Corpuscular HGB CONC 31.6 g/dL (32.0-36.0); Mean Corpuscular Hemoglobin 29.2 pg (27.0-33.0); Mean Corpuscular Volume 92.4 fl (81.2-95.1); Mean Platelet Volume 11.3 fl (7.4-10.4); Platelet Count 127 10x3/uL (150-450); RBC Distribution Width 18.5 % (11.5-14.5); Red Blood Cell (RBC) Count 3.42 10x6/uL (4.32-5.72); White Blood Cell (WBC) Count 9.2 10x3/uL (3.5-10.5)
[2022-05-02 05:32] LABS: Anion Gap 20 mmol/L (10-20); BUN (Urea Nitrogen) 40 mg/dL (8.4-25.7); Calc. Creatinine Clearance 25 mL/min (70-130); Calcium 10.3 mg/dL (7.8-10.44); Carbon Dioxide 24 mmol/L (22-29); Chloride 94 mmol/L (98-107); Estimated GFR 9; Glucose 91 mg/dL (70-105); Potassium 4.1 mmol/L (3.5-5.1); Sodium 134 mmol/L (136-145)
[2022-05-02 06:43] LABS: MDiff Complete? YES; Platelet Morphology Comment Appears Decreased
[2022-05-02 06:46] LABS: Band 3 % (5-11); Eosinophils 6 % (0-10); Lymphocytes 10 % (21-51); Metamyelocyte 1 % (0-0); Monocytes 10 % (0-10); Neutrophil 69 % (42-75)
[2022-05-02] MEDS: Levothyroxine Sodium 75 MCG TAB PO SCH (06:47)
[2022-05-02] MEDS: Digoxin 0.25 MG TAB PO SCH (08:31)
[2022-05-02] MEDS: Zinc Gluconate 50 MG TAB PO SCH (08:31)
[2022-05-02] MEDS: Polyethylene Glycol 3350 17 GM Packet PER TUBE SCH (08:32)
[2022-05-02] MEDS: Sevelamer Carbonate 800 MG TAB PO SCH ×3 (08:32→16:27)
[2022-05-02] MEDS: Apixaban 5 MG TAB PO SCH ×2 (08:32→21:37)
[2022-05-02] MEDS: QUEtiapine 25 MG TAB PO SCH ×2 (08:32→21:37)
[2022-05-02] MEDS: Mirtazapine 15 MG Soltab PO SCH (21:36)
[2022-05-03 05:13] LABS: Anion Gap 22 mmol/L (10-20); BUN (Urea Nitrogen) 55 mg/dL (8.4-25.7); Calc. Creatinine Clearance 20 mL/min (70-130); Calcium 10.1 mg/dL (7.8-10.44); Carbon Dioxide 22 mmol/L (22-29); Chloride 94 mmol/L (98-107); Estimated GFR 7; Glucose 96 mg/dL (70-105); Potassium 4.4 mmol/L (3.5-5.1); Sodium 134 mmol/L (136-145)
[2022-05-03 05:15] LABS: #Basophils 0.1 10x3/uL (0.0-0.2); #Eosinphils 0.5 10x3/uL (0.0-0.5); #Monocytes 1.1 10x3/uL (0.0-1.1); #Neutrophils 6.1 10x3/uL (1.5-8.4); %Basophils 0.6 % (0.0-2.0); %Eosinophils 5.6 % (0.0-6.0); %Lymphocytes 10.4 % (18.0-47.0); %Monocytes 12.7 % (0.0-10.0); %Neutrophils 70.2 % (40.0-75.0); Hemoglobin 9.8 g/dL (13.5-17.5); Mean Corpuscular Hemoglobin 29.3 pg (27.0-33.0); Mean Corpuscular Volume 91.6 fl (81.2-95.1); Mean Platelet Volume 10.1 fl (7.4-10.4); Platelet Count 130 10x3/uL (150-450); RBC Distribution Width 18.6 % (11.5-14.5); Red Blood Cell (RBC) Count 3.34 10x6/uL (4.32-5.72); White Blood Cell (WBC) Count 8.6 10x3/uL (3.5-10.5)
[2022-05-03] MEDS: Levothyroxine Sodium 75 MCG TAB PO SCH (06:00)
[2022-05-03] MEDS: Sevelamer Carbonate 800 MG TAB PO SCH ×3 (09:01→17:43)
[2022-05-03] MEDS: QUEtiapine 25 MG TAB PO SCH ×2 (09:01→21:31)
[2022-05-03] MEDS: Apixaban 5 MG TAB PO SCH ×2 (09:01→21:32)
[2022-05-03] MEDS: Digoxin 0.25 MG TAB PO SCH (09:01)
[2022-05-03] MEDS: Polyethylene Glycol 3350 17 GM Packet PER TUBE SCH (09:01)
[2022-05-03] MEDS: Zinc Gluconate 50 MG TAB PO SCH (09:01)
[2022-05-03] MEDS: Senokot S 8.6-50 MG TAB PO SCH ×2 (09:09→21:31)
[2022-05-03] MEDS: Scopolamine 1.5 mg/72 hour Patch TOP SCH (15:48)
[2022-05-03] MEDS: Mirtazapine 15 MG Soltab PO SCH (21:31)
[2022-05-04 05:05] LABS: Anion Gap 17 mmol/L (10-20); BUN (Urea Nitrogen) 23 mg/dL (8.4-25.7); Calc. Creatinine Clearance 36 mL/min (70-130); Calcium 9.5 mg/dL (7.8-10.44); Carbon Dioxide 26 mmol/L (22-29); Chloride 95 mmol/L (98-107); Estimated GFR 14; Glucose 90 mg/dL (70-105); Potassium 4.1 mmol/L (3.5-5.1); Sodium 134 mmol/L (136-145)
[2022-05-04 05:42] LABS: Hemoglobin 9.5 g/dL (13.5-17.5); Mean Corpuscular HGB CONC 31.4 g/dL (32.0-36.0); Mean Corpuscular Hemoglobin 29.3 pg (27.0-33.0); Mean Corpuscular Volume 93.5 fl (81.2-95.1); Mean Platelet Volume 10.8 fl (7.4-10.4); Platelet Count 159 10x3/uL (150-450); RBC Distribution Width 18.6 % (11.5-14.5); Red Blood Cell (RBC) Count 3.24 10x6/uL (4.32-5.72); White Blood Cell (WBC) Count 8.7 10x3/uL (3.5-10.5)
[2022-05-04] MEDS: Levothyroxine Sodium 75 MCG TAB PO SCH (06:09)
[2022-05-04 06:38] LABS: MDiff Complete? YES; Platelet Morphology Comment Appears Adequate
[2022-05-04 06:40] LABS: Band 5 % (5-11); Eosinophils 2 % (0-10); Lymphocytes 6 % (21-51); Monocytes 9 % (0-10); Neutrophil 77 % (42-75)
[2022-05-04] MEDS: Digoxin 0.25 MG TAB PO SCH (10:06)
[2022-05-04] MEDS: QUEtiapine 25 MG TAB PO SCH ×2 (10:06→21:15)
[2022-05-04] MEDS: Zinc Gluconate 50 MG TAB PO SCH (10:06)
[2022-05-04] MEDS: Sevelamer Carbonate 800 MG TAB PO SCH ×3 (10:07→17:51)
[2022-05-04] MEDS: Apixaban 5 MG TAB PO SCH ×2 (10:07→21:15)
[2022-05-04] MEDS: Polyethylene Glycol 3350 17 GM Packet PER TUBE SCH (10:07)
[2022-05-04] MEDS: Senokot S 8.6-50 MG TAB PO SCH ×2 (10:07→21:22)
[2022-05-04] MEDS: Epoetin (ESRD) 10,000 UNITS/ML VIAL SC SCH (10:24)
[2022-05-04] MEDS ORDERED: EPOETIN ALFA-EPBX (ESRD) 10,000 UNIT/ML VIAL SC SCH (10:30)
[2022-05-04] MEDS: Mirtazapine 15 MG Soltab PO SCH (21:15)
[2022-05-05] MEDS: Levothyroxine Sodium 75 MCG TAB PO SCH (05:31)
[2022-05-05 05:40] LABS: Hemoglobin 9.5 g/dL (13.5-17.5); Mean Corpuscular HGB CONC 30.6 g/dL (32.0-36.0); Mean Corpuscular Hemoglobin 28.7 pg (27.0-33.0); Mean Corpuscular Volume 93.7 fl (81.2-95.1); Mean Platelet Volume 9.9 fl (7.4-10.4); Platelet Count 158 10x3/uL (150-450); RBC Distribution Width 18.7 % (11.5-14.5); Red Blood Cell (RBC) Count 3.31 10x6/uL (4.32-5.72); White Blood Cell (WBC) Count 7.9 10x3/uL (3.5-10.5)
[2022-05-05 05:42] LABS: MDiff Complete? YES
[2022-05-05 05:50] LABS: Anion Gap 18 mmol/L (10-20); BUN (Urea Nitrogen) 36 mg/dL (8.4-25.7); Calc. Creatinine Clearance 23 mL/min (70-130); Calcium 9.9 mg/dL (7.8-10.44); Carbon Dioxide 26 mmol/L (22-29); Chloride 95 mmol/L (98-107); Estimated GFR 9; Glucose 94 mg/dL (70-105); Potassium 4.1 mmol/L (3.5-5.1); Sodium 135 mmol/L (136-145)
[2022-05-05 06:48] LABS: Band 3 % (5-11); Eosinophils 4 % (0-10); Lymphocytes 7 % (21-51); Monocytes 16 % (0-10); Neutrophil 70 % (42-75)
[2022-05-05 06:51] LABS: Anisocytosis SLIGHT = 6-15 cells (100X) (0-5/hpf); Hypochromia SLIGHT = 6-15 cells (100X) (0-5/hpf); Macrocytosis SLIGHT = 6-15 cells (100X) (0-5/hpf); Microcytosis SLIGHT = 6-15 cells (100X) (0-5/hpf); Schistocytes SLIGHT = 2-5 cells (100X) (0-1/hpf)
[2022-05-05 06:52] LABS: Platelet Morphology Comment Appears Adequate
[2022-05-05] MEDS: Sevelamer Carbonate 800 MG TAB PO SCH ×3 (10:07→17:22)
[2022-05-05] MEDS: Digoxin 0.25 MG TAB PO SCH (10:08)
[2022-05-05] MEDS: Senokot S 8.6-50 MG TAB PO SCH ×2 (10:08→22:34)
[2022-05-05] MEDS: Zinc Gluconate 50 MG TAB PO SCH (10:08)
[2022-05-05] MEDS: Apixaban 5 MG TAB PO SCH ×2 (10:08→20:55)
[2022-05-05] MEDS: Polyethylene Glycol 3350 17 GM Packet PER TUBE SCH (10:08)
[2022-05-05] MEDS: QUEtiapine 25 MG TAB PO SCH ×2 (10:08→20:54)
[2022-05-05] MEDS: Mirtazapine 15 MG Soltab PO SCH (20:57)
[2022-05-06] MEDS: Levothyroxine Sodium 75 MCG TAB PO SCH (05:53)
[2022-05-06 06:09] LABS: Anion Gap 17 mmol/L (10-20); BUN (Urea Nitrogen) 19 mg/dL (8.4-25.7); Calc. Creatinine Clearance 36 mL/min (70-130); Calcium 9.7 mg/dL (7.8-10.44); Carbon Dioxide 26 mmol/L (22-29); Chloride 97 mmol/L (98-107); Estimated GFR 14; Glucose 96 mg/dL (70-105); Potassium 4.3 mmol/L (3.5-5.1); Sodium 136 mmol/L (136-145)
[2022-05-06 06:21] LABS: #Basophils 0.1 10x3/uL (0.0-0.2); #Eosinphils 0.5 10x3/uL (0.0-0.5); #Monocytes 1.5 10x3/uL (0.0-1.1); %Basophils 0.8 % (0.0-2.0); %Eosinophils 5.5 % (0.0-6.0); %Lymphocytes 8.3 % (18.0-47.0); %Monocytes 16.7 % (0.0-10.0); %Neutrophils 68.2 % (40.0-75.0); Hemoglobin 9.3 g/dL (13.5-17.5); Mean Corpuscular HGB CONC 30.8 g/dL (32.0-36.0); Mean Corpuscular Hemoglobin 29.1 pg (27.0-33.0); Mean Corpuscular Volume 94.4 fl (81.2-95.1); Mean Platelet Volume 9.7 fl (7.4-10.4); Platelet Count 164 10x3/uL (150-450); RBC Distribution Width 18.6 % (11.5-14.5); White Blood Cell (WBC) Count 8.8 10x3/uL (3.5-10.5)
[2022-05-06 07:21] LABS: Band 7 % (5-11); Eosinophils 6 % (0-10); Lymphocytes 8 % (21-51); Monocytes 16 % (0-10); Neutrophil 63 % (42-75)
[2022-05-06 07:23] LABS: Hypochromia SLIGHT = 6-15 cells (100X) (0-5/hpf); Microcytosis SLIGHT = 6-15 cells (100X) (0-5/hpf); Schistocytes SLIGHT = 2-5 cells (100X) (0-1/hpf); Target Cells SLIGHT = 2-5 cells (100X) (0-1/hpf)
[2022-05-06 07:24] LABS: Platelet Morphology Comment Appears Adequate
[2022-05-06] MEDS: Zinc Gluconate 50 MG TAB PO SCH (08:27)
[2022-05-06] MEDS: Digoxin 0.25 MG TAB PO SCH (08:27)
[2022-05-06] MEDS: Apixaban 5 MG TAB PO SCH ×2 (08:27→20:24)
[2022-05-06] MEDS: QUEtiapine 25 MG TAB PO SCH ×2 (08:27→20:25)
[2022-05-06] MEDS: Polyethylene Glycol 3350 17 GM Packet PER TUBE SCH (08:28)
[2022-05-06] MEDS: Senokot S 8.6-50 MG TAB PO SCH ×2 (08:28→21:24)
[2022-05-06] MEDS: Sevelamer Carbonate 800 MG TAB PO SCH ×3 (08:28→17:26)
[2022-05-06] MEDS: Scopolamine 1.5 mg/72 hour Patch TOP SCH (15:20)
[2022-05-06] MEDS: Mirtazapine 15 MG Soltab PO SCH (20:24)
[2022-05-07 04:57] LABS: Anion Gap 15 mmol/L (10-20); BUN (Urea Nitrogen) 29 mg/dL (8.4-25.7); Calc. Creatinine Clearance 25 mL/min (70-130); Calcium 10.1 mg/dL (7.8-10.44); Carbon Dioxide 26 mmol/L (22-29); Chloride 97 mmol/L (98-107); Estimated GFR 9; Glucose 94 mg/dL (70-105); Potassium 4.2 mmol/L (3.5-5.1); Sodium 134 mmol/L (136-145)
[2022-05-07] MEDS: Levothyroxine Sodium 75 MCG TAB PO SCH (05:08)
[2022-05-07 05:15] LABS: #Basophils 0.1 10x3/uL (0.0-0.2); #Eosinphils 0.4 10x3/uL (0.0-0.5); #Monocytes 1.3 10x3/uL (0.0-1.1); #Neutrophils 5.8 10x3/uL (1.5-8.4); %Basophils 0.7 % (0.0-2.0); %Eosinophils 4.6 % (0.0-6.0); %Lymphocytes 11.6 % (18.0-47.0); %Neutrophils 67.4 % (40.0-75.0); Hemoglobin 9.4 g/dL (13.5-17.5); Mean Corpuscular HGB CONC 30.5 g/dL (32.0-36.0); Mean Corpuscular Hemoglobin 29.2 pg (27.0-33.0); Mean Corpuscular Volume 95.7 fl (81.2-95.1); Mean Platelet Volume 10.5 fl (7.4-10.4); Platelet Count 191 10x3/uL (150-450); RBC Distribution Width 18.7 % (11.5-14.5); Red Blood Cell (RBC) Count 3.22 10x6/uL (4.32-5.72); White Blood Cell (WBC) Count 8.6 10x3/uL (3.5-10.5)
[2022-05-07] MEDS: Apixaban 5 MG TAB PO SCH ×2 (08:42→20:36)
[2022-05-07] MEDS: QUEtiapine 25 MG TAB PO SCH ×2 (08:42→20:36)
[2022-05-07] MEDS: Digoxin 0.25 MG TAB PO SCH (08:42)
[2022-05-07] MEDS: Zinc Gluconate 50 MG TAB PO SCH (08:43)
[2022-05-07] MEDS: Polyethylene Glycol 3350 17 GM Packet PER TUBE SCH (08:43)
[2022-05-07] MEDS: Sevelamer Carbonate 800 MG TAB PO SCH ×3 (08:43→16:29)
[2022-05-07] MEDS: Senokot S 8.6-50 MG TAB PO SCH ×2 (08:43→20:37)
[2022-05-07] MEDS: Mirtazapine 15 MG Soltab PO SCH (20:37)
[2022-05-08 04:22] LABS: #Basophils 0.1 10x3/uL (0.0-0.2); #Eosinphils 0.3 10x3/uL (0.0-0.5); #Monocytes 1.3 10x3/uL (0.0-1.1); #Neutrophils 6.6 10x3/uL (1.5-8.4); %Basophils 0.6 % (0.0-2.0); %Eosinophils 3.7 % (0.0-6.0); %Lymphocytes 8.2 % (18.0-47.0); %Monocytes 13.9 % (0.0-10.0); Hemoglobin 9.1 g/dL (13.5-17.5); Mean Corpuscular HGB CONC 30.5 g/dL (32.0-36.0); Mean Corpuscular Volume 94.9 fl (81.2-95.1); Mean Platelet Volume 9.5 fl (7.4-10.4); Platelet Count 175 10x3/uL (150-450); RBC Distribution Width 18.7 % (11.5-14.5); Red Blood Cell (RBC) Count 3.14 10x6/uL (4.32-5.72)
[2022-05-08 04:38] LABS: Anion Gap 14 mmol/L (10-20); BUN (Urea Nitrogen) 12 mg/dL (8.4-25.7); Calc. Creatinine Clearance 45 mL/min (70-130); Calcium 9.1 mg/dL (7.8-10.44); Carbon Dioxide 28 mmol/L (22-29); Chloride 96 mmol/L (98-107); Estimated GFR 19; Glucose 92 mg/dL (70-105); Phosphorus 2.8 mg/dL (2.3-4.7); Potassium 3.6 mmol/L (3.5-5.1); Sodium 134 mmol/L (136-145)
[2022-05-08 05:07] VITALS: BMI 47.4
[2022-05-08] MEDS: Levothyroxine Sodium 75 MCG TAB PO SCH (06:05)
[2022-05-08] MEDS: Sevelamer Carbonate 800 MG TAB PO SCH ×3 (09:24→17:39)
[2022-05-08] MEDS: Apixaban 5 MG TAB PO SCH ×2 (09:24→21:55)
[2022-05-08] MEDS: QUEtiapine 25 MG TAB PO SCH ×2 (09:24→21:54)
[2022-05-08] MEDS: Senokot S 8.6-50 MG TAB PO SCH ×2 (09:24→21:54)
[2022-05-08] MEDS: Digoxin 0.25 MG TAB PO SCH (09:24)
[2022-05-08] MEDS: Polyethylene Glycol 3350 17 GM Packet PER TUBE SCH (09:24)
[2022-05-08] MEDS: Zinc Gluconate 50 MG TAB PO SCH (09:25)
[2022-05-08] MEDS: Mirtazapine 15 MG Soltab PO SCH (21:54)
[2022-05-09] MEDS: Levothyroxine Sodium 75 MCG TAB PO SCH (06:44)
[2022-05-09] MEDS: QUEtiapine 25 MG TAB PO SCH (09:22)
[2022-05-09] MEDS: Zinc Gluconate 50 MG TAB PO SCH (09:23)
[2022-05-09] MEDS: Digoxin 0.25 MG TAB PO SCH (09:23)
[2022-05-09] MEDS: Polyethylene Glycol 3350 17 GM Packet PER TUBE SCH (09:23)
[2022-05-09] MEDS: Senokot S 8.6-50 MG TAB PO SCH (09:23)
[2022-05-09] MEDS: Sevelamer Carbonate 800 MG TAB PO SCH ×2 (09:23→13:24)
[2022-05-09] MEDS: Apixaban 5 MG TAB PO SCH (09:23)
[2022-05-09 11:50] VITALS: BP 106/58; TEMP 98.3
== END 2022-05-09 14:13 | DRG 207 ==
LOC: CSHERS 11:38 → CSHTELE 16:55 → CSHIMCU 04-02 09:23 → CSHTELE 04-11 17:54 → CSHICU 04-12 09:03 → CSHTELE 04-16 19:48
PROVIDERS: ADMIT Hospitalist; ATTEND Internal Medicine
PROC: 30233J1 Transfusion of Nonautologous Serum Albumin into Peripheral Vein, Percutaneous Approach (ICD-10-PCS; principal; 2022-04-02)
PROC: 5A1955Z Respiratory Ventilation, Greater than 96 Consecutive Hours (ICD-10-PCS; 2022-04-02)
PROC: 5A09557 Assistance with Respiratory Ventilation, Greater than 96 Consecutive Hours, Continuous Positive Airway Pressure (ICD-10-PCS; 2022-04-02)
PROC: 0BH17EZ Insertion of Endotracheal Airway into Trachea, Via Natural or Artificial Opening (ICD-10-PCS; 2022-04-02)
DX: J18.9 Pneumonia, unspecified organism (principal); G93.41 Metabolic encephalopathy; I21.A1 Myocardial infarction type 2; J96.01 Acute respiratory failure with hypoxia; I50.23 Acute on chronic systolic (congestive) heart failure; N18.6 End stage renal disease; J96.02 Acute respiratory failure with hypercapnia; R57.8 Other shock; I13.2 Hypertensive heart and chronic kidney disease with heart failure and with stage 5 chronic kidney disease, or end stage renal disease; E66.2 Morbid (severe) obesity with alveolar hypoventilation; E87.1 Hypo-osmolality and hyponatremia; Z68.42 Body mass index [BMI] 45.0-49.9, adult; I48.21 Permanent atrial fibrillation; I31.39 Other pericardial effusion (noninflammatory); N25.81 Secondary hyperparathyroidism of renal origin; I42.8 Other cardiomyopathies; R53.81 Other malaise; K76.1 Chronic passive congestion of liver; D63.1 Anemia in chronic kidney disease; J45.909 Unspecified asthma, uncomplicated; E78.5 Hyperlipidemia, unspecified; E83.39 Other disorders of phosphorus metabolism; R41.0 Disorientation, unspecified; Z20.822 Contact with and (suspected) exposure to COVID-19; Z95.810 Presence of automatic (implantable) cardiac defibrillator; Z88.5 Allergy status to narcotic agent; Z88.8 Allergy status to other drugs, medicaments and biological substances; Z99.2 Dependence on renal dialysis; Z79.01 Long term (current) use of anticoagulants; Z79.899 Other long term (current) drug therapy; Z90.49 Acquired absence of other specified parts of digestive tract
CPT/HCPCS: 31500; 36415; 36416; 36600; 71045; 71260; 71275; 76705; 80048; 80053; 80069; 80202; 82140; 82247; 82306; 82553; 82805; 83615; 83735; 83880; 83970; 84100; 84484; 85014; 85018; 85025; 85049; 85300; 85362; 85379; 85384; 85610; 85611; 85730; 85732; 86140; 86706; 86850; 86900; 86901; 87070; 87205; 87340; 87449; 87811; 87899; 90935; 93005; 93010; 93306; 94002; 94003; 94150; 94640; 94660; 94760; 96374; C9113; G0257; J1160; J1630; J1644; J1940; J2060; J2543; J2704; J2930; J3370; J3430; J3475; J3490; J7050; J7620; P9047; Q4081; Q5105; Q9967

== ENCOUNTER 2022-07-24 02:21 | Inpatient (IN) | payer MEDICARE ==
[2022-07-24] MEDS ORDERED: Ipratropium/Albuterol 3 ML NEB ONE (02:45)
[2022-07-24 02:51] LABS: #Basophils 0.1 10x3/uL (0.0-0.2); #Eosinphils 0.6 10x3/uL (0.0-0.5); #Monocytes 1.2 10x3/uL (0.0-1.1); #Neutrophils 6.8 10x3/uL (1.5-8.4); %Basophils 0.8 % (0.0-2.0); %Eosinophils 5.3 % (0.0-6.0); %Lymphocytes 16.3 % (18.0-47.0); %Monocytes 11.3 % (0.0-10.0); %Neutrophils 65.9 % (40.0-75.0); Hemoglobin 9.2 g/dL (13.5-17.5); Mean Corpuscular HGB CONC 31.5 g/dL (32.0-36.0); Mean Corpuscular Hemoglobin 31.1 pg (27.0-33.0); Mean Corpuscular Volume 98.6 fl (81.2-95.1); Mean Platelet Volume 9.8 fl (7.4-10.4); Platelet Count 133 10x3/uL (150-450); RBC Distribution Width 17.3 % (11.5-14.5); Red Blood Cell (RBC) Count 2.96 10x6/uL (4.32-5.72); White Blood Cell (WBC) Count 10.3 10x3/uL (3.5-10.5)
[2022-07-24 03:01] LABS: ALT (SGPT) 8 U/L (8-55); AST (SGOT) 21 U/L (5-34); Albumin 2.5 g/dL (3.4-4.8); Alkaline Phosphatase 71 U/L (40-110); Anion Gap 14 mmol/L (10-20); BUN (Urea Nitrogen) 15 mg/dL (8.4-25.7); Bilirubin, Total 1.2 mg/dL (0.2-1.2); Calc. Creatinine Clearance 0 mL/min (70-130); Calcium 10.2 mg/dL (7.8-10.44); Carbon Dioxide 27 mmol/L (23-31); Chloride 103 mmol/L (98-107); Estimated GFR 11; Globulin 3.6 g/dL (2.4-3.5); Glucose 101 mg/dL (80-115); Magnesium 2.1 mg/dL (1.6-2.6); Potassium 3.3 mmol/L (3.5-5.1); Protein, Total 6.1 g/dL (5.8-8.1); Sodium 141 mmol/L (136-145)
[2022-07-24 03:24] LABS: CKMB 2.6 ng/mL (0-6.6)
[2022-07-24] MEDS ORDERED: Calcium Carbonate 500 MG ChewTAB PO PRN (04:04)
[2022-07-24] MEDS ORDERED: Guaifenesin DM 100-10/5 ML UDCUP PO PRN (04:04)
[2022-07-24] MEDS ORDERED: Senokot S 8.6-50 MG TAB PO PRN (04:04)
[2022-07-24] MEDS ORDERED: Acetaminophen 325 MG TAB PO PRN (04:04)
[2022-07-24] MEDS ORDERED: Ondansetron PF 4 MG/2 ML Vial IVP PRN (04:04)
[2022-07-24] MEDS ORDERED: Potassium Chloride 20 MEQ TAB ONE (05:20)
[2022-07-24] MEDS ORDERED: Nitroglycerin 2% Ointment 1 INCH/1 GM Packet ONE (05:23)
[2022-07-24] MEDS ORDERED: Potassium Chloride 20 MEQ TAB PO SCH (05:30)
[2022-07-24] MEDS ORDERED: Nitroglycerin 2% Ointment 1 INCH/1 GM Packet TOP SCH (05:30)
[2022-07-24] MEDS: Levothyroxine Sodium 75 MCG TAB PO SCH (05:42)
[2022-07-24 07:16] LABS: CKMB 2.8 ng/mL (0-6.6)
[2022-07-24] MEDS ORDERED: Acetaminophen 500 MG TAB ONE (08:36)
[2022-07-24] MEDS ORDERED: Metoprolol Tartrate 25 MG TAB ONE (09:32)
[2022-07-24] MEDS ORDERED: Digoxin 0.125 MG TAB ONE (09:32)
[2022-07-24] MEDS ORDERED: Apixaban 5 MG TAB ONE (09:32)
[2022-07-24] MEDS: Sevelamer Carbonate 800 MG TAB PO SCH ×3 (09:37→17:18)
[2022-07-24] MEDS: Apixaban 2.5 MG TAB PO SCH ×2 (09:37→22:00)
[2022-07-24] MEDS: Digoxin 0.125 MG TAB PO SCH (09:38)
[2022-07-24] MEDS: Metoprolol Tartrate 25 MG TAB PO SCH ×2 (09:39→22:01)
[2022-07-24] MEDS: Folic Acid/Vit B Comp W-C PO SCH (09:39)
[2022-07-24] MEDS: Mirtazapine 15 MG Soltab PO SCH (09:39)
[2022-07-24] MEDS: QUEtiapine 25 MG TAB PO SCH (09:39)
[2022-07-24] MEDS ORDERED: Albumin 25% 25 GM/100 ML BOT IVPB PRN (10:01)
[2022-07-24 12:40] LABS: Hep B Core Total Ab Non-Reactive (NonReactive); Hep B Core Total Index 0.16 S/CO (0-0.79); Hep C IgG Ab Non-Reactive (NonReactive); Hep C Index 0.41 S/CO (0-0.79)
[2022-07-24 12:48] LABS: HBSAB Concentration 32.91 mIU/mL; Hep B Surf AB Reactive (NonReactive)
[2022-07-24] MEDS: Mometasone/Formoterol 200/5 60 PUFF INH SCH ×2 (17:17→20:54)
[2022-07-24 20:11] LABS: CKMB 3.5 ng/mL (0-6.6)
[2022-07-25 05:52] LABS: HBSAg Index 0.21 S/CO (0-0.99); Hep B Surf Ag Non-Reactive S/CO (NonReactive)
[2022-07-25] MEDS: Levothyroxine Sodium 75 MCG TAB PO SCH (06:15)
[2022-07-25] MEDS ORDERED: EPOETIN ALFA-EPBX (ESRD) 4,000 UNIT/ML VIAL SC SCH (08:00)
[2022-07-25] MEDS: Mometasone/Formoterol 200/5 60 PUFF INH SCH ×2 (08:22→20:20)
[2022-07-25] MEDS: Mirtazapine 15 MG Soltab PO SCH (09:00)
[2022-07-25] MEDS: Digoxin 0.125 MG TAB PO SCH (11:33)
[2022-07-25] MEDS: Apixaban 2.5 MG TAB PO SCH ×2 (11:33→21:43)
[2022-07-25] MEDS: Sevelamer Carbonate 800 MG TAB PO SCH ×3 (11:33→20:37)
[2022-07-25] MEDS: Metoprolol Tartrate 25 MG TAB PO SCH ×3 (11:33→21:46)
[2022-07-25] MEDS: QUEtiapine 25 MG TAB PO SCH (11:34)
[2022-07-25] MEDS: Folic Acid/Vit B Comp W-C PO SCH (13:30)
[2022-07-25] MEDS: EPOETIN ALFA-EPBX (ESRD) 4,000 UNIT/ML VIAL SC SCH (20:37)
[2022-07-26 05:11] LABS: Anion Gap 13 mmol/L (10-20); BUN (Urea Nitrogen) 15 mg/dL (8.4-25.7); Calc. Creatinine Clearance 31 mL/min (70-130); Calcium 10.2 mg/dL (7.8-10.44); Carbon Dioxide 30 mmol/L (23-31); Chloride 105 mmol/L (98-107); Estimated GFR 13; Glucose 89 mg/dL (80-115); Potassium 4.4 mmol/L (3.5-5.1); Sodium 144 mmol/L (136-145)
[2022-07-26 05:27] LABS: #Basophils 0.1 10x3/uL (0.0-0.2); #Eosinphils 0.7 10x3/uL (0.0-0.5); #Monocytes 1.2 10x3/uL (0.0-1.1); #Neutrophils 6.5 10x3/uL (1.5-8.4); %Basophils 0.8 % (0.0-2.0); %Eosinophils 6.8 % (0.0-6.0); %Lymphocytes 14.6 % (18.0-47.0); %Monocytes 11.7 % (0.0-10.0); %Neutrophils 65.1 % (40.0-75.0); Hemoglobin 9.6 g/dL (13.5-17.5); Mean Corpuscular HGB CONC 30.7 g/dL (32.0-36.0); Mean Corpuscular Hemoglobin 31.3 pg (27.0-33.0); Mean Platelet Volume 9.8 fl (7.4-10.4); Platelet Count 113 10x3/uL (150-450); RBC Distribution Width 17.4 % (11.5-14.5); Red Blood Cell (RBC) Count 3.07 10x6/uL (4.32-5.72)
[2022-07-26] MEDS: Levothyroxine Sodium 75 MCG TAB PO SCH (06:15)
[2022-07-26] MEDS: Mometasone/Formoterol 200/5 60 PUFF INH SCH ×2 (08:15→20:35)
[2022-07-26] MEDS: Sevelamer Carbonate 800 MG TAB PO SCH ×3 (08:47→17:00)
[2022-07-26] MEDS: Apixaban 2.5 MG TAB PO SCH ×2 (08:47→21:05)
[2022-07-26] MEDS: Digoxin 0.125 MG TAB PO SCH (08:47)
[2022-07-26] MEDS: QUEtiapine 25 MG TAB PO SCH (08:48)
[2022-07-26] MEDS: Metoprolol Tartrate 25 MG TAB PO SCH ×2 (08:48→21:46)
[2022-07-26] MEDS: Folic Acid/Vit B Comp W-C PO SCH (09:07)
[2022-07-26] MEDS: Mirtazapine 15 MG Soltab PO SCH (09:07)
[2022-07-27 04:42] LABS: #Basophils 0.1 10x3/uL (0.0-0.2); #Eosinphils 0.7 10x3/uL (0.0-0.5); #Monocytes 1.1 10x3/uL (0.0-1.1); %Basophils 0.7 % (0.0-2.0); %Eosinophils 6.7 % (0.0-6.0); %Lymphocytes 15.5 % (18.0-47.0); %Monocytes 10.5 % (0.0-10.0); %Neutrophils 65.8 % (40.0-75.0); Hemoglobin 9.7 g/dL (13.5-17.5); Mean Corpuscular HGB CONC 29.9 g/dL (32.0-36.0); Mean Corpuscular Hemoglobin 30.4 pg (27.0-33.0); Mean Corpuscular Volume 101.6 fl (81.2-95.1); Mean Platelet Volume 10.1 fl (7.4-10.4); Platelet Count 122 10x3/uL (150-450); RBC Distribution Width 17.3 % (11.5-14.5); Red Blood Cell (RBC) Count 3.19 10x6/uL (4.32-5.72); White Blood Cell (WBC) Count 10.7 10x3/uL (3.5-10.5)
[2022-07-27 04:46] LABS: Anion Gap 12 mmol/L (10-20); BUN (Urea Nitrogen) 11 mg/dL (8.4-25.7); Calc. Creatinine Clearance 42 mL/min (70-130); Calcium 9.6 mg/dL (7.8-10.44); Carbon Dioxide 30 mmol/L (23-31); Chloride 102 mmol/L (98-107); Estimated GFR 18; Glucose 79 mg/dL (80-115); Potassium 3.7 mmol/L (3.5-5.1); Sodium 140 mmol/L (136-145)
[2022-07-27 05:31] LABS: Macrocytosis SLIGHT = 6-15 cells (100X) (0-5/hpf); Ovalocytes SLIGHT = 2-5 cells (100X) (0-1/hpf)
[2022-07-27] MEDS: Levothyroxine Sodium 75 MCG TAB PO SCH (05:31)
[2022-07-27 05:32] LABS: Hypochromia SLIGHT = 6-15 cells (100X) (0-5/hpf); Platelet Morphology Comment Appears Decreased
[2022-07-27] MEDS: Mometasone/Formoterol 200/5 60 PUFF INH SCH ×2 (07:30→19:51)
[2022-07-27] MEDS: Sevelamer Carbonate 800 MG TAB PO SCH ×3 (08:18→17:25)
[2022-07-27] MEDS: Metoprolol Tartrate 25 MG TAB PO SCH ×2 (08:19→22:57)
[2022-07-27] MEDS: Apixaban 2.5 MG TAB PO SCH ×2 (08:19→22:57)
[2022-07-27] MEDS: QUEtiapine 25 MG TAB PO SCH (08:19)
[2022-07-27] MEDS: Digoxin 0.125 MG TAB PO SCH (08:19)
[2022-07-27] MEDS: Mirtazapine 15 MG Soltab PO SCH (08:31)
[2022-07-27] MEDS: Folic Acid/Vit B Comp W-C PO SCH (08:33)
[2022-07-28 03:49] LABS: #Eosinphils 0.5 10x3/uL (0.0-0.5); #Monocytes 0.9 10x3/uL (0.0-1.1); #Neutrophils 6.4 10x3/uL (1.5-8.4); %Basophils 0.4 % (0.0-2.0); %Eosinophils 5.6 % (0.0-6.0); %Neutrophils 68.4 % (40.0-75.0); Hemoglobin 9.1 g/dL (13.5-17.5); Mean Corpuscular HGB CONC 30.8 g/dL (32.0-36.0); Mean Corpuscular Hemoglobin 31.2 pg (27.0-33.0); Platelet Count 132 10x3/uL (150-450); RBC Distribution Width 17.5 % (11.5-14.5); Red Blood Cell (RBC) Count 2.92 10x6/uL (4.32-5.72); White Blood Cell (WBC) Count 9.4 10x3/uL (3.5-10.5)
[2022-07-28 04:07] LABS: ALT (SGPT) 9 U/L (8-55); AST (SGOT) 23 U/L (5-34); Albumin 2.4 g/dL (3.4-4.8); Alkaline Phosphatase 71 U/L (40-110); Anion Gap 15 mmol/L (10-20); BUN (Urea Nitrogen) 17 mg/dL (8.4-25.7); Bilirubin, Total 0.8 mg/dL (0.2-1.2); Calc. Creatinine Clearance 30 mL/min (70-130); Calcium 10.1 mg/dL (7.8-10.44); Carbon Dioxide 27 mmol/L (23-31); Chloride 104 mmol/L (98-107); Estimated GFR 12; Globulin 3.6 g/dL (2.4-3.5); Glucose 103 mg/dL (80-115); Potassium 3.9 mmol/L (3.5-5.1); Sodium 142 mmol/L (136-145)
[2022-07-28] MEDS: Levothyroxine Sodium 75 MCG TAB PO SCH (06:24)
[2022-07-28] MEDS: Mometasone/Formoterol 200/5 60 PUFF INH SCH ×2 (07:00→18:35)
[2022-07-28] MEDS: Sevelamer Carbonate 800 MG TAB PO SCH ×3 (09:41→18:04)
[2022-07-28] MEDS: QUEtiapine 25 MG TAB PO SCH (09:42)
[2022-07-28] MEDS: Apixaban 2.5 MG TAB PO SCH ×2 (09:42→20:49)
[2022-07-28] MEDS: Digoxin 0.125 MG TAB PO SCH (09:43)
[2022-07-28] MEDS: Metoprolol Tartrate 25 MG TAB PO SCH ×2 (09:44→20:49)
[2022-07-28] MEDS: Mirtazapine 15 MG Soltab PO SCH (09:46)
[2022-07-28] MEDS: Folic Acid/Vit B Comp W-C PO SCH (13:45)
[2022-07-29 03:44] LABS: #Basophils 0.1 10x3/uL (0.0-0.2); #Eosinphils 0.6 10x3/uL (0.0-0.5); #Neutrophils 6.9 10x3/uL (1.5-8.4); %Basophils 0.7 % (0.0-2.0); %Eosinophils 5.6 % (0.0-6.0); %Lymphocytes 15.4 % (18.0-47.0); %Monocytes 10.2 % (0.0-10.0); %Neutrophils 67.8 % (40.0-75.0); Hemoglobin 9.1 g/dL (13.5-17.5); Mean Corpuscular HGB CONC 31.3 g/dL (32.0-36.0); Mean Corpuscular Hemoglobin 31.2 pg (27.0-33.0); Mean Corpuscular Volume 99.7 fl (81.2-95.1); Platelet Count 139 10x3/uL (150-450); RBC Distribution Width 17.6 % (11.5-14.5); Red Blood Cell (RBC) Count 2.92 10x6/uL (4.32-5.72); White Blood Cell (WBC) Count 10.2 10x3/uL (3.5-10.5)
[2022-07-29 03:59] LABS: ALT (SGPT) 7 U/L (8-55); AST (SGOT) 21 U/L (5-34); Albumin 2.4 g/dL (3.4-4.8); Alkaline Phosphatase 66 U/L (40-110); Anion Gap 14 mmol/L (10-20); BUN (Urea Nitrogen) 11 mg/dL (8.4-25.7); Calc. Creatinine Clearance 44 mL/min (70-130); Calcium 9.2 mg/dL (7.8-10.44); Carbon Dioxide 26 mmol/L (23-31); Chloride 104 mmol/L (98-107); Estimated GFR 19; Globulin 3.4 g/dL (2.4-3.5); Glucose 78 mg/dL (80-115); Potassium 3.8 mmol/L (3.5-5.1); Protein, Total 5.8 g/dL (5.8-8.1); Sodium 140 mmol/L (136-145)
[2022-07-29] MEDS: Levothyroxine Sodium 75 MCG TAB PO SCH (05:38)
[2022-07-29] MEDS: Mometasone/Formoterol 200/5 60 PUFF INH SCH ×2 (08:12→19:34)
[2022-07-29] MEDS: QUEtiapine 25 MG TAB PO SCH (08:46)
[2022-07-29] MEDS: Sevelamer Carbonate 800 MG TAB PO SCH ×3 (08:46→18:04)
[2022-07-29] MEDS: Folic Acid/Vit B Comp W-C PO SCH (08:46)
[2022-07-29] MEDS: Apixaban 2.5 MG TAB PO SCH ×2 (08:46→20:20)
[2022-07-29] MEDS: Digoxin 0.125 MG TAB PO SCH (08:47)
[2022-07-29] MEDS: Mirtazapine 15 MG Soltab PO SCH (08:47)
[2022-07-29] MEDS: Metoprolol Tartrate 25 MG TAB PO SCH ×2 (08:47→20:20)
[2022-07-30 04:56] LABS: #Basophils 0.1 10x3/uL (0.0-0.2); #Eosinphils 0.6 10x3/uL (0.0-0.5); #Monocytes 1.3 10x3/uL (0.0-1.1); #Neutrophils 7.1 10x3/uL (1.5-8.4); %Basophils 0.6 % (0.0-2.0); %Eosinophils 5.3 % (0.0-6.0); %Lymphocytes 16.2 % (18.0-47.0); %Monocytes 12.1 % (0.0-10.0); %Neutrophils 65.3 % (40.0-75.0); Hemoglobin 9.4 g/dL (13.5-17.5); Mean Corpuscular Hemoglobin 31.3 pg (27.0-33.0); Mean Platelet Volume 9.7 fl (7.4-10.4); Platelet Count 147 10x3/uL (150-450); RBC Distribution Width 17.8 % (11.5-14.5); White Blood Cell (WBC) Count 10.9 10x3/uL (3.5-10.5)
[2022-07-30 05:10] LABS: ALT (SGPT) 7 U/L (8-55); AST (SGOT) 22 U/L (5-34); Albumin 2.6 g/dL (3.4-4.8); Alkaline Phosphatase 70 U/L (40-110); Anion Gap 11 mmol/L (10-20); BUN (Urea Nitrogen) 20 mg/dL (8.4-25.7); Bilirubin, Total 0.8 mg/dL (0.2-1.2); Calc. Creatinine Clearance 31 mL/min (70-130); Calcium 9.9 mg/dL (7.8-10.44); Carbon Dioxide 29 mmol/L (23-31); Chloride 103 mmol/L (98-107); Estimated GFR 13; Globulin 3.7 g/dL (2.4-3.5); Glucose 97 mg/dL (80-115); Protein, Total 6.3 g/dL (5.8-8.1); Sodium 139 mmol/L (136-145)
[2022-07-30] MEDS: Levothyroxine Sodium 75 MCG TAB PO SCH (06:55)
[2022-07-30] MEDS: Mometasone/Formoterol 200/5 60 PUFF INH SCH ×2 (10:10→19:56)
[2022-07-30] MEDS: Folic Acid/Vit B Comp W-C PO SCH (10:51)
[2022-07-30] MEDS: Sevelamer Carbonate 800 MG TAB PO SCH ×3 (10:51→15:47)
[2022-07-30] MEDS: Metoprolol Tartrate 25 MG TAB PO SCH ×2 (10:52→20:51)
[2022-07-30] MEDS: Apixaban 2.5 MG TAB PO SCH ×2 (11:14→20:51)
[2022-07-30] MEDS: QUEtiapine 25 MG TAB PO SCH (11:14)
[2022-07-30] MEDS: Mirtazapine 15 MG Soltab PO SCH (11:14)
[2022-07-30] MEDS: Digoxin 0.125 MG TAB PO SCH (11:14)
[2022-07-31 05:13] LABS: #Basophils 0.1 10x3/uL (0.0-0.2); #Eosinphils 0.6 10x3/uL (0.0-0.5); #Neutrophils 7.3 10x3/uL (1.5-8.4); %Basophils 0.6 % (0.0-2.0); %Eosinophils 5.5 % (0.0-6.0); %Lymphocytes 14.1 % (18.0-47.0); %Monocytes 9.4 % (0.0-10.0); %Neutrophils 69.9 % (40.0-75.0); Hemoglobin 9.2 g/dL (13.5-17.5); Mean Corpuscular HGB CONC 30.9 g/dL (32.0-36.0); Mean Corpuscular Volume 100.3 fl (81.2-95.1); Mean Platelet Volume 9.8 fl (7.4-10.4); Platelet Count 145 10x3/uL (150-450); RBC Distribution Width 17.8 % (11.5-14.5); Red Blood Cell (RBC) Count 2.97 10x6/uL (4.32-5.72); White Blood Cell (WBC) Count 10.5 10x3/uL (3.5-10.5)
[2022-07-31 05:24] LABS: ALT (SGPT) 7 U/L (8-55); AST (SGOT) 21 U/L (5-34); Albumin 2.5 g/dL (3.4-4.8); Alkaline Phosphatase 64 U/L (40-110); Anion Gap 12 mmol/L (10-20); BUN (Urea Nitrogen) 17 mg/dL (8.4-25.7); Bilirubin, Total 0.9 mg/dL (0.2-1.2); Calc. Creatinine Clearance 39 mL/min (70-130); Calcium 9.7 mg/dL (7.8-10.44); Carbon Dioxide 31 mmol/L (23-31); Chloride 101 mmol/L (98-107); Estimated GFR 17; Globulin 3.7 g/dL (2.4-3.5); Glucose 91 mg/dL (80-115); Potassium 3.9 mmol/L (3.5-5.1); Protein, Total 6.2 g/dL (5.8-8.1); Sodium 140 mmol/L (136-145)
[2022-07-31] MEDS: Levothyroxine Sodium 75 MCG TAB PO SCH (05:44)
[2022-07-31] MEDS: Apixaban 2.5 MG TAB PO SCH ×2 (08:04→21:16)
[2022-07-31] MEDS: QUEtiapine 25 MG TAB PO SCH (08:04)
[2022-07-31] MEDS: Folic Acid/Vit B Comp W-C PO SCH (08:04)
[2022-07-31] MEDS: Sevelamer Carbonate 800 MG TAB PO SCH ×3 (08:04→17:32)
[2022-07-31] MEDS: Metoprolol Tartrate 25 MG TAB PO SCH ×2 (08:04→21:16)
[2022-07-31] MEDS: Mirtazapine 15 MG Soltab PO SCH (08:06)
[2022-07-31] MEDS: Digoxin 0.125 MG TAB PO SCH (08:17)
[2022-07-31] MEDS: Mometasone/Formoterol 200/5 60 PUFF INH SCH ×2 (08:23→19:14)
[2022-08-01 04:41] LABS: #Basophils 0.1 10x3/uL (0.0-0.2); #Eosinphils 0.7 10x3/uL (0.0-0.5); #Monocytes 1.1 10x3/uL (0.0-1.1); #Neutrophils 7.9 10x3/uL (1.5-8.4); %Basophils 0.5 % (0.0-2.0); %Eosinophils 5.7 % (0.0-6.0); %Lymphocytes 14.6 % (18.0-47.0); %Monocytes 9.3 % (0.0-10.0); %Neutrophils 69.3 % (40.0-75.0); Hemoglobin 9.3 g/dL (13.5-17.5); Mean Corpuscular HGB CONC 31.1 g/dL (32.0-36.0); Mean Corpuscular Hemoglobin 31.3 pg (27.0-33.0); Mean Corpuscular Volume 100.7 fl (81.2-95.1); Mean Platelet Volume 9.8 fl (7.4-10.4); Platelet Count 149 10x3/uL (150-450); RBC Distribution Width 17.5 % (11.5-14.5); Red Blood Cell (RBC) Count 2.97 10x6/uL (4.32-5.72); White Blood Cell (WBC) Count 11.4 10x3/uL (3.5-10.5)
[2022-08-01 05:02] LABS: ALT (SGPT) 8 U/L (8-55); AST (SGOT) 22 U/L (5-34); Albumin 2.6 g/dL (3.4-4.8); Alkaline Phosphatase 65 U/L (40-110); Anion Gap 12 mmol/L (10-20); BUN (Urea Nitrogen) 27 mg/dL (8.4-25.7); Bilirubin, Total 0.8 mg/dL (0.2-1.2); Calc. Creatinine Clearance 26 mL/min (70-130); Carbon Dioxide 31 mmol/L (23-31); Chloride 101 mmol/L (98-107); Estimated GFR 10; Globulin 3.7 g/dL (2.4-3.5); Glucose 97 mg/dL (80-115); Potassium 4.1 mmol/L (3.5-5.1); Protein, Total 6.3 g/dL (5.8-8.1); Sodium 140 mmol/L (136-145)
[2022-08-01] MEDS: Levothyroxine Sodium 75 MCG TAB PO SCH (05:40)
[2022-08-01] MEDS: Mometasone/Formoterol 200/5 60 PUFF INH SCH ×2 (06:55→19:15)
[2022-08-01] MEDS: Apixaban 2.5 MG TAB PO SCH ×2 (09:07→21:59)
[2022-08-01] MEDS: Digoxin 0.125 MG TAB PO SCH (09:08)
[2022-08-01] MEDS: Mirtazapine 15 MG Soltab PO SCH (09:14)
[2022-08-01] MEDS: QUEtiapine 25 MG TAB PO SCH (09:14)
[2022-08-01] MEDS: Folic Acid/Vit B Comp W-C PO SCH (09:14)
[2022-08-01] MEDS: Metoprolol Tartrate 25 MG TAB PO SCH ×2 (09:14→21:59)
[2022-08-01] MEDS: Sevelamer Carbonate 800 MG TAB PO SCH ×3 (09:43→18:09)
[2022-08-01] MEDS: EPOETIN ALFA-EPBX (ESRD) 4,000 UNIT/ML VIAL SC SCH (22:19)
[2022-08-02 04:12] LABS: #Basophils 0.1 10x3/uL (0.0-0.2); #Eosinphils 0.7 10x3/uL (0.0-0.5); #Neutrophils 8.4 10x3/uL (1.5-8.4); %Basophils 0.6 % (0.0-2.0); %Eosinophils 5.8 % (0.0-6.0); %Lymphocytes 13.9 % (18.0-47.0); %Monocytes 8.5 % (0.0-10.0); %Neutrophils 70.7 % (40.0-75.0); Hemoglobin 8.8 g/dL (13.5-17.5); Mean Corpuscular HGB CONC 31.1 g/dL (32.0-36.0); Mean Corpuscular Hemoglobin 31.2 pg (27.0-33.0); Mean Corpuscular Volume 100.4 fl (81.2-95.1); Mean Platelet Volume 9.9 fl (7.4-10.4); Platelet Count 152 10x3/uL (150-450); RBC Distribution Width 17.4 % (11.5-14.5); Red Blood Cell (RBC) Count 2.82 10x6/uL (4.32-5.72); White Blood Cell (WBC) Count 11.9 10x3/uL (3.5-10.5)
[2022-08-02 04:16] LABS: ALT (SGPT) 8 U/L (8-55); AST (SGOT) 24 U/L (5-34); Albumin 2.6 g/dL (3.4-4.8); Alkaline Phosphatase 56 U/L (40-110); Anion Gap 15 mmol/L (10-20); BUN (Urea Nitrogen) 39 mg/dL (8.4-25.7); Bilirubin, Total 0.8 mg/dL (0.2-1.2); Calc. Creatinine Clearance 22 mL/min (70-130); Carbon Dioxide 27 mmol/L (23-31); Chloride 103 mmol/L (98-107); Estimated GFR 9; Globulin 3.6 g/dL (2.4-3.5); Glucose 94 mg/dL (80-115); Potassium 4.4 mmol/L (3.5-5.1); Protein, Total 6.2 g/dL (5.8-8.1); Sodium 141 mmol/L (136-145)
[2022-08-02] MEDS: Levothyroxine Sodium 75 MCG TAB PO SCH (05:11)
[2022-08-02 06:24] VITALS: BMI 40.1
[2022-08-02] MEDS: Mometasone/Formoterol 200/5 60 PUFF INH SCH ×2 (09:17→14:16)
[2022-08-02] MEDS: Digoxin 0.125 MG TAB PO SCH (09:24)
[2022-08-02] MEDS: Apixaban 2.5 MG TAB PO SCH ×2 (09:25→22:20)
[2022-08-02] MEDS: QUEtiapine 25 MG TAB PO SCH (09:25)
[2022-08-02] MEDS: Metoprolol Tartrate 25 MG TAB PO SCH ×3 (09:25→22:21)
[2022-08-02] MEDS: Folic Acid/Vit B Comp W-C PO SCH (09:26)
[2022-08-02] MEDS: Sevelamer Carbonate 800 MG TAB PO SCH ×3 (09:26→16:09)
[2022-08-02] MEDS: Mirtazapine 15 MG Soltab PO SCH (09:27)
[2022-08-03 04:57] LABS: #Basophils 0.1 10x3/uL (0.0-0.2); #Eosinphils 0.5 10x3/uL (0.0-0.5); #Monocytes 1.1 10x3/uL (0.0-1.1); #Neutrophils 9.1 10x3/uL (1.5-8.4); %Basophils 0.6 % (0.0-2.0); %Eosinophils 4.2 % (0.0-6.0); %Lymphocytes 10.5 % (18.0-47.0); %Monocytes 8.7 % (0.0-10.0); %Neutrophils 75.4 % (40.0-75.0); Hemoglobin 8.7 g/dL (13.5-17.5); Mean Corpuscular HGB CONC 30.9 g/dL (32.0-36.0); Mean Corpuscular Hemoglobin 31.1 pg (27.0-33.0); Mean Corpuscular Volume 100.7 fl (81.2-95.1); Platelet Count 137 10x3/uL (150-450); RBC Distribution Width 17.5 % (11.5-14.5); White Blood Cell (WBC) Count 12.1 10x3/uL (3.5-10.5)
[2022-08-03 05:03] LABS: ALT (SGPT) 9 U/L (8-55); AST (SGOT) 25 U/L (5-34); Albumin 2.7 g/dL (3.4-4.8); Alkaline Phosphatase 65 U/L (40-110); Anion Gap 14 mmol/L (10-20); BUN (Urea Nitrogen) 22 mg/dL (8.4-25.7); Bilirubin, Total 0.8 mg/dL (0.2-1.2); Calc. Creatinine Clearance 36 mL/min (70-130); Calcium 9.3 mg/dL (7.8-10.44); Carbon Dioxide 30 mmol/L (23-31); Chloride 101 mmol/L (98-107); Estimated GFR 15; Globulin 3.7 g/dL (2.4-3.5); Glucose 117 mg/dL (80-115); Potassium 3.7 mmol/L (3.5-5.1); Protein, Total 6.4 g/dL (5.8-8.1); Sodium 141 mmol/L (136-145)
[2022-08-03] MEDS: Levothyroxine Sodium 75 MCG TAB PO SCH (05:59)
[2022-08-03] MEDS: Mometasone/Formoterol 200/5 60 PUFF INH SCH (07:30)
[2022-08-03] MEDS: QUEtiapine 25 MG TAB PO SCH (08:50)
[2022-08-03] MEDS: Sevelamer Carbonate 800 MG TAB PO SCH (08:50)
[2022-08-03] MEDS: Digoxin 0.125 MG TAB PO SCH (08:50)
[2022-08-03] MEDS: Apixaban 2.5 MG TAB PO SCH (08:51)
[2022-08-03] MEDS: Metoprolol Tartrate 25 MG TAB PO SCH (08:51)
[2022-08-03] MEDS: Mirtazapine 15 MG Soltab PO SCH (09:10)
[2022-08-03] MEDS: Folic Acid/Vit B Comp W-C PO SCH (09:10)
[2022-08-03 13:54] VITALS: BP 115/61; TEMP 98.7
== END 2022-08-03 15:32 | disposition home health service (06) | DRG 280 ==
LOC: CSHERS 02:21 → CSHERHOLD 05:01 → CSHTELE 17:06
PROVIDERS: ADMIT Student in an Organized Health Care Education/Training Program; ATTEND Internal Medicine
PROC: 5A09357 Assistance with Respiratory Ventilation, Less than 24 Consecutive Hours, Continuous Positive Airway Pressure (ICD-10-PCS; principal; 2022-07-25)
PROC: 5A1D70Z Performance of Urinary Filtration, Intermittent, Less than 6 Hours Per Day (ICD-10-PCS; 2022-07-28)
DX: I13.2 Hypertensive heart and chronic kidney disease with heart failure and with stage 5 chronic kidney disease, or end stage renal disease (principal); I50.23 Acute on chronic systolic (congestive) heart failure; I21.A1 Myocardial infarction type 2; N18.6 End stage renal disease; J96.21 Acute and chronic respiratory failure with hypoxia; I48.21 Permanent atrial fibrillation; Z68.41 Body mass index [BMI] 40.0-44.9, adult; I42.8 Other cardiomyopathies; E78.5 Hyperlipidemia, unspecified; K21.9 Gastro-esophageal reflux disease without esophagitis; E66.01 Morbid (severe) obesity due to excess calories; G47.33 Obstructive sleep apnea (adult) (pediatric); D63.1 Anemia in chronic kidney disease; E87.6 Hypokalemia; E88.09 Other disorders of plasma-protein metabolism, not elsewhere classified; I95.89 Other hypotension; J45.909 Unspecified asthma, uncomplicated; Z88.8 Allergy status to other drugs, medicaments and biological substances; Z79.01 Long term (current) use of anticoagulants; Z88.5 Allergy status to narcotic agent; Z79.899 Other long term (current) drug therapy; Z99.2 Dependence on renal dialysis; Z95.810 Presence of automatic (implantable) cardiac defibrillator; Z90.49 Acquired absence of other specified parts of digestive tract; Z98.890 Other specified postprocedural states; Z91.199 Patient's noncompliance with other medical treatment and regimen due to unspecified reason
CPT/HCPCS: 36415; 71045; 80048; 80053; 82553; 83735; 83880; 84484; 85025; 86704; 90935; 93005; 94640; 94660; 94760; 94762; G0257; J7611; J7620; P9047; Q5105

== ENCOUNTER 2022-08-05 10:09 | Emergency (ER) | payer MEDICARE ==
[2022-08-05 10:38] LABS: #Basophils 0.1 10x3/uL (0.0-0.2); #Eosinphils 0.5 10x3/uL (0.0-0.5); #Neutrophils 8.8 10x3/uL (1.5-8.4); %Basophils 0.6 % (0.0-2.0); %Eosinophils 4.1 % (0.0-6.0); %Lymphocytes 11.9 % (18.0-47.0); %Monocytes 8.6 % (0.0-10.0); Hemoglobin 8.9 g/dL (13.5-17.5); Mean Corpuscular HGB CONC 31.3 g/dL (32.0-36.0); Mean Corpuscular Hemoglobin 31.3 pg (27.0-33.0); Mean Platelet Volume 9.8 fl (7.4-10.4); Platelet Count 178 10x3/uL (150-450); RBC Distribution Width 17.8 % (11.5-14.5); Red Blood Cell (RBC) Count 2.84 10x6/uL (4.32-5.72); White Blood Cell (WBC) Count 11.8 10x3/uL (3.5-10.5)
[2022-08-05 10:47] LABS: ALT (SGPT) 9 U/L (8-55); AST (SGOT) 24 U/L (5-34); Albumin 2.9 g/dL (3.4-4.8); Alkaline Phosphatase 62 U/L (40-110); Anion Gap 17 mmol/L (10-20); BUN (Urea Nitrogen) 43 mg/dL (8.4-25.7); Bilirubin, Total 0.9 mg/dL (0.2-1.2); Calc. Creatinine Clearance 0 mL/min (70-130); Calcium 10.1 mg/dL (7.8-10.44); Carbon Dioxide 24 mmol/L (23-31); Chloride 103 mmol/L (98-107); Estimated GFR 8; Glucose 109 mg/dL (80-115); Protein, Total 6.9 g/dL (5.8-8.1); Sodium 140 mmol/L (136-145)
[2022-08-05] MEDS ORDERED: Heparin 10,000 UNITS/ 10 ML VIAL FS PRN (13:04)
== END 2022-08-05 18:15 | disposition home or self-care (01) ==
LOC: CSHERS 10:09
DX: I13.2 Hypertensive heart and chronic kidney disease with heart failure and with stage 5 chronic kidney disease, or end stage renal disease (principal); N18.6 End stage renal disease; I50.9 Heart failure, unspecified; R53.1 Weakness; D72.829 Elevated white blood cell count, unspecified; Z79.01 Long term (current) use of anticoagulants
CPT/HCPCS: 71045; 80053; 85025; 90935; 93005; G0257; J1644

== ENCOUNTER 2022-08-18 08:40 | Emergency (ER) | payer MEDICARE ==
[2022-08-18 09:08] LABS: #Basophils 0.1 10x3/uL (0.0-0.2); #Eosinphils 0.5 10x3/uL (0.0-0.5); #Monocytes 0.8 10x3/uL (0.0-1.1); #Neutrophils 7.9 10x3/uL (1.5-8.4); %Basophils 0.6 % (0.0-2.0); %Eosinophils 4.6 % (0.0-6.0); %Lymphocytes 12.9 % (18.0-47.0); %Monocytes 7.6 % (0.0-10.0); %Neutrophils 73.8 % (40.0-75.0); Hemoglobin 9.3 g/dL (13.5-17.5); Mean Corpuscular HGB CONC 31.1 g/dL (32.0-36.0); Mean Corpuscular Hemoglobin 30.8 pg (27.0-33.0); Mean Platelet Volume 9.5 fl (7.4-10.4); Platelet Count 159 10x3/uL (150-450); Red Blood Cell (RBC) Count 3.02 10x6/uL (4.32-5.72); White Blood Cell (WBC) Count 10.6 10x3/uL (3.5-10.5)
[2022-08-18] MEDS ORDERED: Ipratropium/Albuterol 3 ML NEB ONE (09:20)
[2022-08-18 09:27] LABS: ALT (SGPT) 7 U/L (8-55); AST (SGOT) 19 U/L (5-34); Albumin 3.2 g/dL (3.4-4.8); Alkaline Phosphatase 66 U/L (40-110); Anion Gap 15 mmol/L (10-20); BUN (Urea Nitrogen) 15 mg/dL (8.4-25.7); Calc. Creatinine Clearance 0 mL/min (70-130); Calcium 8.8 mg/dL (7.8-10.44); Carbon Dioxide 28 mmol/L (23-31); Chloride 101 mmol/L (98-107); Estimated GFR 17; Globulin 3.4 g/dL (2.4-3.5); Glucose 113 mg/dL (80-115); Lipase 54 U/L (8-78); Potassium 3.1 mmol/L (3.5-5.1); Protein, Total 6.6 g/dL (5.8-8.1); Sodium 141 mmol/L (136-145)
[2022-08-18 09:48] LABS: CKMB 1.7 ng/mL (0-6.6)
[2022-08-18 13:07] LABS: CKMB 2.1 ng/mL (0-6.6)
== END 2022-08-18 12:57 | disposition short-term general hospital (02) ==
LOC: CSHERS 08:40
DX: I13.2 Hypertensive heart and chronic kidney disease with heart failure and with stage 5 chronic kidney disease, or end stage renal disease (principal); I50.9 Heart failure, unspecified; N18.6 End stage renal disease; Z99.2 Dependence on renal dialysis; R79.89 Other specified abnormal findings of blood chemistry; I48.91 Unspecified atrial fibrillation
CPT/HCPCS: 36415; 71045; 80053; 82553; 83690; 83880; 84484; 85025; 93005; J7620

== ENCOUNTER 2023-03-06 04:32 | Inpatient (IN) | payer MEDICARE ==
[2023-03-06 04:57] LABS: #Basophils 0.1 10x3/uL (0.0-0.2); #Eosinphils 0.3 10x3/uL (0.0-0.5); #Monocytes 0.9 10x3/uL (0.0-1.1); #Neutrophils 7.9 10x3/uL (1.5-8.4); %Basophils 0.6 % (0.0-2.0); %Eosinophils 2.6 % (0.0-6.0); %Lymphocytes 14.2 % (18.0-47.0); %Monocytes 8.8 % (0.0-10.0); %Neutrophils 73.5 % (40.0-75.0); Hematocrit 35.9 % (38.8-50.0); Mean Corpuscular HGB CONC 30.6 g/dL (32.0-36.0); Mean Corpuscular Hemoglobin 29.6 pg (27.0-33.0); Mean Corpuscular Volume 96.5 fl (81.2-95.1); Mean Platelet Volume 10.6 fl (7.4-10.4); Platelet Count 173 10x3/uL (150-450); RBC Distribution Width 16.8 % (11.5-14.5); Red Blood Cell (RBC) Count 3.72 10x6/uL (4.32-5.72); White Blood Cell (WBC) Count 10.7 10x3/uL (3.5-10.5)
[2023-03-06] MEDS ORDERED: Furosemide 40 MG/4 ML VIAL ONE (04:57)
[2023-03-06 05:09] LABS: ALT (SGPT) 8 U/L (8-55); AST (SGOT) 18 U/L (5-34); Alkaline Phosphatase 59 U/L (40-110); Anion Gap 26 mmol/L (10-20); BUN (Urea Nitrogen) 61 mg/dL (8.4-25.7); Bilirubin, Total 0.4 mg/dL (0.2-1.2); Calc. Creatinine Clearance 0 mL/min (70-130); Calcium 10.5 mg/dL (7.8-10.44); Carbon Dioxide 24 mmol/L (23-31); Chloride 101 mmol/L (98-107); Estimated GFR 8; Globulin 3.8 g/dL (2.4-3.5); Glucose 116 mg/dL (80-115); Protein, Total 7.8 g/dL (5.8-8.1); Sodium 144 mmol/L (136-145)
[2023-03-06 05:13] LABS: Troponin I 0.055 ng/mL (< 0.028)
[2023-03-06 05:16] LABS: Potassium 6.5 mmol/L (3.5-5.1)
[2023-03-06] MEDS ORDERED: Acetaminophen 325 MG TAB PO PRN (05:46)
[2023-03-06] MEDS ORDERED: Senokot S 8.6-50 MG TAB PO PRN (05:46)
[2023-03-06] MEDS ORDERED: Calcium Carbonate 500 MG ChewTAB PO PRN (05:46)
[2023-03-06] MEDS ORDERED: Guaifenesin DM 100-10/5 ML UDCUP PO PRN (05:46)
[2023-03-06] MEDS ORDERED: Calcium Gluc 4.6 MEQ/10 ML (100 MG/ML) ONE (05:49)
[2023-03-06] MEDS ORDERED: Nitroglycerin 0.4 MG TAB (25 Tab Bottle) SL PRN (05:51)
[2023-03-06 06:14] LABS: SARS-CoV-2 NAA Rapid Test Not Detected (NotDetected)
[2023-03-06] MEDS ORDERED: Levothyroxine Sodium 75 MCG TAB PO SCH (08:00)
[2023-03-06] MEDS ORDERED: Metoprolol Tartrate 25 MG TAB ONE (08:02)
[2023-03-06] MEDS ORDERED: Apixaban 5 MG TAB ONE (08:02)
[2023-03-06] MEDS ORDERED: QUEtiapine 25 MG TAB ONE (08:03)
[2023-03-06 08:23] VITALS: BMI 52.0
[2023-03-06 08:24] LABS: Troponin I 0.046 ng/mL (< 0.028)
[2023-03-06] MEDS: Mirtazapine 15 MG Soltab PO SCH (09:15)
[2023-03-06] MEDS: QUEtiapine 25 MG TAB PO SCH (09:15)
[2023-03-06] MEDS: Metoprolol Tartrate 25 MG TAB PO SCH ×2 (09:15→22:28)
[2023-03-06] MEDS ORDERED: Heparin 10,000 UNITS/ 10 ML VIAL SLOW IVP SCH (10:00)
[2023-03-06] MEDS ORDERED: Amiodarone 150 MG, Admixture Fee 1 EACH in Dextrose 5% in Water 100 ML IVPB SCH (12:00)
[2023-03-06] MEDS ORDERED: Amiodarone In Dextrose 150 MG in Premix 1 BAG IVPB SCH (12:00)
[2023-03-06] MEDS ORDERED: Amiodarone 450 MG in Dextrose 5% in Water 250 ML IVPB SCH (12:00)
[2023-03-06 12:58] LABS: Anion Gap 17 mmol/L (10-20); BUN (Urea Nitrogen) 30 mg/dL (8.4-25.7); Calc. Creatinine Clearance 43 mL/min (70-130); Carbon Dioxide 29 mmol/L (23-31); Chloride 99 mmol/L (98-107); Estimated GFR 14; Glucose 95 mg/dL (80-115); Potassium 4.9 mmol/L (3.5-5.1); Sodium 140 mmol/L (136-145)
[2023-03-06] MEDS: Apixaban 5 MG TAB PO SCH ×2 (13:01→22:28)
[2023-03-06] MEDS: Folic Acid/Vit B Comp W-C PO SCH (13:01)
[2023-03-06 13:04] LABS: Troponin I 0.056 ng/mL (< 0.028)
[2023-03-06] MEDS: Sevelamer Carbonate 800 MG TAB PO SCH ×2 (18:15)
[2023-03-06] MEDS: Midodrine HCl 5 MG TAB PO SCH (19:06)
[2023-03-06] MEDS: Ipratropium/Albuterol 3 ML NEB NEB PRN (20:10)
[2023-03-06] MEDS: Amiodarone In Dextrose 200 ML IVPB SCH (22:27)
[2023-03-07] MEDS ORDERED: Furosemide 20 MG/2 ML VIAL SLOW IVP SCH (02:00)
[2023-03-07] MEDS: Midodrine HCl 5 MG TAB PO SCH ×3 (02:04→18:24)
[2023-03-07] MEDS: Ipratropium/Albuterol 3 ML NEB NEB PRN ×2 (02:14→07:40)
[2023-03-07] MEDS: Amiodarone In Dextrose 200 ML IVPB SCH ×2 (04:27→18:24)
[2023-03-07] MEDS: Levothyroxine Sodium 75 MCG TAB PO SCH (06:38)
[2023-03-07 06:40] LABS: #Basophils 0.1 10x3/uL (0.0-0.2); #Eosinphils 0.6 10x3/uL (0.0-0.5); #Monocytes 0.8 10x3/uL (0.0-1.1); #Neutrophils 6.1 10x3/uL (1.5-8.4); %Basophils 0.6 % (0.0-2.0); %Eosinophils 6.2 % (0.0-6.0); %Monocytes 9.1 % (0.0-10.0); %Neutrophils 68.9 % (40.0-75.0); Hematocrit 34.2 % (38.8-50.0); Hemoglobin 10.2 g/dL (13.5-17.5); Mean Corpuscular HGB CONC 29.8 g/dL (32.0-36.0); Mean Corpuscular Hemoglobin 28.8 pg (27.0-33.0); Mean Corpuscular Volume 96.6 fl (81.2-95.1); Mean Platelet Volume 10.4 fl (7.4-10.4); Platelet Count 147 10x3/uL (150-450); RBC Distribution Width 16.4 % (11.5-14.5); Red Blood Cell (RBC) Count 3.54 10x6/uL (4.32-5.72); White Blood Cell (WBC) Count 8.9 10x3/uL (3.5-10.5)
[2023-03-07 07:31] LABS: Anion Gap 25 mmol/L (10-20); BUN (Urea Nitrogen) 47 mg/dL (8.4-25.7); Calc. Creatinine Clearance 32 mL/min (70-130); Calcium 9.6 mg/dL (7.8-10.44); Carbon Dioxide 23 mmol/L (23-31); Chloride 95 mmol/L (98-107); Estimated GFR 10; Glucose 260 mg/dL (80-115); Sodium 137 mmol/L (136-145)
[2023-03-07 07:37] LABS: Potassium 6.3 mmol/L (3.5-5.1)
[2023-03-07] MEDS: QUEtiapine 25 MG TAB PO SCH (09:13)
[2023-03-07] MEDS: Sevelamer Carbonate 800 MG TAB PO SCH ×3 (09:13→18:49)
[2023-03-07] MEDS: Metoprolol Tartrate 25 MG TAB PO SCH ×2 (09:14→21:12)
[2023-03-07] MEDS: Apixaban 5 MG TAB PO SCH ×2 (09:14→21:12)
[2023-03-07] MEDS: Mirtazapine 15 MG Soltab PO SCH (10:23)
[2023-03-07] MEDS: Folic Acid/Vit B Comp W-C PO SCH (10:24)
[2023-03-07] MEDS ORDERED: Heparin 10,000 UNITS/ 10 ML VIAL FS PRN (13:42)
[2023-03-07 16:42] LABS: Anion Gap 19 mmol/L (10-20); BUN (Urea Nitrogen) 30 mg/dL (8.4-25.7); Calc. Creatinine Clearance 45 mL/min (70-130); Calcium 9.2 mg/dL (7.8-10.44); Carbon Dioxide 25 mmol/L (23-31); Chloride 96 mmol/L (98-107); Estimated GFR 15; Glucose 168 mg/dL (80-115); Potassium 4.4 mmol/L (3.5-5.1); Sodium 136 mmol/L (136-145)
[2023-03-08] MEDS: Amiodarone In Dextrose 200 ML IVPB SCH (03:48)
[2023-03-08] MEDS: Midodrine HCl 5 MG TAB PO SCH ×3 (03:48→17:31)
[2023-03-08] MEDS: Levothyroxine Sodium 75 MCG TAB PO SCH (05:59)
[2023-03-08 06:11] LABS: #Basophils 0.1 10x3/uL (0.0-0.2); #Eosinphils 0.5 10x3/uL (0.0-0.5); #Monocytes 0.7 10x3/uL (0.0-1.1); #Neutrophils 7.1 10x3/uL (1.5-8.4); %Basophils 0.5 % (0.0-2.0); %Eosinophils 5.2 % (0.0-6.0); %Lymphocytes 10.5 % (18.0-47.0); %Monocytes 7.7 % (0.0-10.0); %Neutrophils 75.7 % (40.0-75.0); Hemoglobin 10.7 g/dL (13.5-17.5); Mean Corpuscular HGB CONC 30.6 g/dL (32.0-36.0); Mean Corpuscular Hemoglobin 29.4 pg (27.0-33.0); Mean Corpuscular Volume 96.2 fl (81.2-95.1); Mean Platelet Volume 9.9 fl (7.4-10.4); Platelet Count 142 10x3/uL (150-450); Red Blood Cell (RBC) Count 3.64 10x6/uL (4.32-5.72); White Blood Cell (WBC) Count 9.4 10x3/uL (3.5-10.5)
[2023-03-08 06:14] LABS: Actual Bicarbonate (HCO3v) 23.4 mEq/L (22-28); Base Excess -2.1 mEq/L (-2 - +2); Calcium, Ionized (venous) 1.03 mmol/L (1.16-1.32); Chloride (VBG) 98 mmol/L (98-106); Critical Notified By: Udy, RRT; Hematocrit-VBG 34 % (42.0-52.0); Hemoglobin (Hb) 11.7 g/dL (13.1-17.2); Potassium (VBG) 5.88 mmol/L (3.70-5.30); Puncture Site Other Site; RapidComm Collect By LAB; Sodium 137 mmol/L (133-146); pH (venous) 7.353 (7.32-7.43)
[2023-03-08 06:21] LABS: Anion Gap 23 mmol/L (10-20); BUN (Urea Nitrogen) 47 mg/dL (8.4-25.7); Calc. Creatinine Clearance 31 mL/min (70-130); Calcium 9.8 mg/dL (7.8-10.44); Carbon Dioxide 25 mmol/L (23-31); Chloride 98 mmol/L (98-107); Estimated GFR 10; Glucose 70 mg/dL (80-115); Sodium 140 mmol/L (136-145)
[2023-03-08] MEDS: Sevelamer Carbonate 800 MG TAB PO SCH ×3 (08:56→17:31)
[2023-03-08] MEDS: Folic Acid/Vit B Comp W-C PO SCH (08:57)
[2023-03-08] MEDS: QUEtiapine 25 MG TAB PO SCH (08:57)
[2023-03-08] MEDS: Mirtazapine 15 MG Soltab PO SCH (08:57)
[2023-03-08] MEDS: Apixaban 5 MG TAB PO SCH ×2 (08:57→21:05)
[2023-03-08] MEDS: Metoprolol Tartrate 25 MG TAB PO SCH ×2 (08:57→21:04)
[2023-03-08] MEDS ORDERED: EPOETIN ALFA-EPBX (ESRD) 4,000 UNITS/ML VIAL SC SCH (12:00)
[2023-03-08 16:38] LABS: Anion Gap 14 mmol/L (10-20); BUN (Urea Nitrogen) 23 mg/dL (8.4-25.7); Calc. Creatinine Clearance 49 mL/min (70-130); Calcium 9.2 mg/dL (7.8-10.44); Carbon Dioxide 31 mmol/L (23-31); Chloride 98 mmol/L (98-107); Estimated GFR 17; Glucose 110 mg/dL (80-115); Potassium 4.3 mmol/L (3.5-5.1); Sodium 139 mmol/L (136-145)
[2023-03-08] MEDS: Amiodarone 200 MG TAB PO SCH (21:05)
[2023-03-09 03:53] LABS: #Eosinphils 0.4 10x3/uL (0.0-0.5); #Monocytes 0.7 10x3/uL (0.0-1.1); #Neutrophils 4.6 10x3/uL (1.5-8.4); %Basophils 0.4 % (0.0-2.0); %Lymphocytes 14.1 % (18.0-47.0); %Monocytes 10.6 % (0.0-10.0); %Neutrophils 68.6 % (40.0-75.0); Hemoglobin 10.7 g/dL (13.5-17.5); Mean Corpuscular HGB CONC 30.6 g/dL (32.0-36.0); Mean Corpuscular Hemoglobin 29.2 pg (27.0-33.0); Mean Corpuscular Volume 95.6 fl (81.2-95.1); Platelet Count 122 10x3/uL (150-450); RBC Distribution Width 15.4 % (11.5-14.5); Red Blood Cell (RBC) Count 3.66 10x6/uL (4.32-5.72); White Blood Cell (WBC) Count 6.7 10x3/uL (3.5-10.5)
[2023-03-09 04:05] LABS: Anion Gap 17 mmol/L (10-20); BUN (Urea Nitrogen) 31 mg/dL (8.4-25.7); Calc. Creatinine Clearance 37 mL/min (70-130); Calcium 9.5 mg/dL (7.8-10.44); Carbon Dioxide 27 mmol/L (23-31); Chloride 97 mmol/L (98-107); Estimated GFR 12; Glucose 91 mg/dL (80-115); Potassium 5.1 mmol/L (3.5-5.1); Sodium 136 mmol/L (136-145)
[2023-03-09] MEDS: Midodrine HCl 5 MG TAB PO SCH ×3 (04:18→17:48)
[2023-03-09] MEDS: Levothyroxine Sodium 75 MCG TAB PO SCH (06:41)
[2023-03-09] MEDS: Metoprolol Tartrate 25 MG TAB PO SCH ×2 (08:52→20:13)
[2023-03-09] MEDS: QUEtiapine 25 MG TAB PO SCH (08:52)
[2023-03-09] MEDS: Folic Acid/Vit B Comp W-C PO SCH (08:52)
[2023-03-09] MEDS: Amiodarone 200 MG TAB PO SCH ×2 (08:52→20:13)
[2023-03-09] MEDS: Apixaban 5 MG TAB PO SCH ×2 (08:52→20:13)
[2023-03-09] MEDS: Mirtazapine 15 MG Soltab PO SCH (08:52)
[2023-03-09] MEDS: Sevelamer Carbonate 800 MG TAB PO SCH ×3 (08:53→17:48)
[2023-03-10] MEDS: Midodrine HCl 5 MG TAB PO SCH ×2 (03:24→11:55)
[2023-03-10] MEDS: Levothyroxine Sodium 75 MCG TAB PO SCH (05:26)
[2023-03-10] MEDS: Sevelamer Carbonate 800 MG TAB PO SCH ×2 (12:04→13:44)
[2023-03-10] MEDS: QUEtiapine 25 MG TAB PO SCH (13:42)
[2023-03-10] MEDS: Folic Acid/Vit B Comp W-C PO SCH (13:42)
[2023-03-10] MEDS: Metoprolol Tartrate 25 MG TAB PO SCH (13:43)
[2023-03-10] MEDS: Mirtazapine 15 MG Soltab PO SCH (13:43)
[2023-03-10] MEDS: Apixaban 5 MG TAB PO SCH (13:46)
[2023-03-10] MEDS: Amiodarone 200 MG TAB PO SCH (13:46)
[2023-03-10 13:53] VITALS: BP 121/63; TEMP 97.8
== END 2023-03-10 15:00 | disposition home or self-care (01) | DRG 280 ==
LOC: CSHERS 04:32 → CSHERHOLD 05:51 → CSHTELE 16:47
PROVIDERS: ADMIT Student in an Organized Health Care Education/Training Program; ATTEND Internal Medicine
PROC: 5A09457 Assistance with Respiratory Ventilation, 24-96 Consecutive Hours, Continuous Positive Airway Pressure (ICD-10-PCS; 2023-03-06)
PROC: 4A043R1 Measurement of Venous Saturation, Peripheral, Percutaneous Approach (ICD-10-PCS; principal; 2023-03-08)
DX: I13.2 Hypertensive heart and chronic kidney disease with heart failure and with stage 5 chronic kidney disease, or end stage renal disease (principal); G93.41 Metabolic encephalopathy; I21.A1 Myocardial infarction type 2; I50.23 Acute on chronic systolic (congestive) heart failure; N18.6 End stage renal disease; J96.21 Acute and chronic respiratory failure with hypoxia; I48.19 Other persistent atrial fibrillation; Z68.43 Body mass index [BMI] 50.0-59.9, adult; Z66 Do not resuscitate; E87.5 Hyperkalemia; Z88.5 Allergy status to narcotic agent; Z88.8 Allergy status to other drugs, medicaments and biological substances; Z79.01 Long term (current) use of anticoagulants; Z79.899 Other long term (current) drug therapy; Z90.49 Acquired absence of other specified parts of digestive tract; E66.01 Morbid (severe) obesity due to excess calories; I42.8 Other cardiomyopathies; E03.9 Hypothyroidism, unspecified; Z99.2 Dependence on renal dialysis; K21.9 Gastro-esophageal reflux disease without esophagitis; D63.1 Anemia in chronic kidney disease; D75.89 Other specified diseases of blood and blood-forming organs; Z95.810 Presence of automatic (implantable) cardiac defibrillator; Z20.822 Contact with and (suspected) exposure to COVID-19; D69.6 Thrombocytopenia, unspecified
CPT/HCPCS: 36415; 36416; 71045; 80048; 80053; 82805; 83880; 84443; 84484; 85025; 90935; 93005; 93010; 94640; 94660; 94760; 96374; 96375; G0257; J0283; J0612; J1644; J1940; J7620; Q5105

== ENCOUNTER 2023-06-03 11:09 | Emergency (ER) | payer MEDICARE, OTHER ==
[2023-06-03 12:07] LABS: #Eosinphils 0.2 10x3/uL (0.0-0.5); #Monocytes 1.2 10x3/uL (0.0-1.1); #Neutrophils 6.3 10x3/uL (1.5-8.4); %Basophils 0.4 % (0.0-2.0); %Eosinophils 2.2 % (0.0-6.0); %Lymphocytes 12.9 % (18.0-47.0); %Monocytes 13.9 % (0.0-10.0); Hematocrit 19.8 % (38.8-50.0); Hemoglobin 6.2 g/dL (13.5-17.5); Mean Corpuscular HGB CONC 31.3 g/dL (32.0-36.0); Mean Corpuscular Hemoglobin 29.8 pg (27.0-33.0); Mean Corpuscular Volume 95.2 fl (81.2-95.1); Mean Platelet Volume 10.7 fl (7.4-10.4); Platelet Count 131 10x3/uL (150-450); RBC Distribution Width 19.7 % (11.5-14.5); Red Blood Cell (RBC) Count 2.08 10x6/uL (4.32-5.72); White Blood Cell (WBC) Count 8.9 10x3/uL (3.5-10.5)
[2023-06-03 12:08] LABS: INR-International Normal Ratio 1.3; PTT 29.6 sec (22.0-33.0); Prothrombin Time 13.7 sec (9.5-12.1)
[2023-06-03 12:17] LABS: ALT (SGPT) 18 U/L (8-55); AST (SGOT) 29 U/L (5-34); Albumin 3.2 g/dL (3.4-4.8); Alkaline Phosphatase 78 U/L (40-110); Anion Gap 20 mmol/L (10-20); BUN (Urea Nitrogen) 46 mg/dL (8.4-25.7); Bilirubin, Total 0.8 mg/dL (0.2-1.2); Calc. Creatinine Clearance 0 mL/min (70-130); Carbon Dioxide 26 mmol/L (23-31); Chloride 96 mmol/L (98-107); Estimated GFR 10; Globulin 2.8 g/dL (2.4-3.5); Glucose 105 mg/dL (80-115); Lipase 48 U/L (8-78); Magnesium 2.5 mg/dL (1.6-2.6); Potassium 4.9 mmol/L (3.5-5.1); Sodium 137 mmol/L (136-145)
[2023-06-03 12:25] LABS: Troponin I 0.082 ng/mL (< 0.028)
[2023-06-03 12:52] LABS: SARS-CoV-2 NAA Rapid Test Not Detected (NotDetected)
== END 2023-06-03 15:48 | disposition admitted as inpatient to this hospital (09) ==
LOC: CSHERS 11:09
DX: I13.0 Hypertensive heart and chronic kidney disease with heart failure and stage 1 through stage 4 chronic kidney disease, or unspecified chronic kidney disease (principal); N18.9 Chronic kidney disease, unspecified; I50.9 Heart failure, unspecified; D63.1 Anemia in chronic kidney disease; R06.00 Dyspnea, unspecified; R53.1 Weakness; I48.91 Unspecified atrial fibrillation; Z99.2 Dependence on renal dialysis
CPT/HCPCS: 0240U; 36430; 71045; 80053; 83690; 83735; 83880; 84484; 85025; 85610; 85730; 86850; 86900; 86901; 86920; 93005; 99285; P9016; 36415; 36416